=== PATIENT | female | born 1935 | race Caucasian/White ===

== ENCOUNTER 2021-02-27 17:20 | Emergency (ER) | payer OTHER, SELFPAY ==
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
[2021-02-27 17:29] VITALS: BP 180/110; BP 192/84; PULSE 107; RESP 18; TEMP 37; O2SAT 97; BMI 32.5
[2021-02-27 20:03] VITALS: BP 180/80; PULSE 86; RESP 20; TEMP 37.1; O2SAT 96
== END 2021-02-27 20:26 | disposition home or self-care (01) ==
PROVIDERS: Emergency Provider Emergency Medicine
DX: S00.93XA Contusion of unspecified part of head, initial encounter (principal); V43.52XA Car driver injured in collision with other type car in traffic accident, initial encounter; I10 Essential (primary) hypertension; Y93.89 Activity, other specified; Y92.414 Local residential or business street as the place of occurrence of the external cause; Y99.9 Unspecified external cause status
CPT/HCPCS: 70450; 72125; 99284

== ENCOUNTER 2022-08-06 13:11 | Inpatient (IN) | payer MEDICARE, BC, SELFPAY ==
--- NOTE | ~2022-08-06 | CT_ITS ---
EXAMINATION: CT HEAD WITHOUT CONTRAST CLINICAL INFORMATION: Change in mental status. COMPARISON: Head CT February 27, 2021. TECHNIQUE: Contiguous axial imaging was performed from the skull base to vertex without intravenous administration of contrast. This CT examination was performed using dose optimization techniques as appropriate, variously including the following: *Automated exposure control *Adjustment of mA and/or kV according to patient size (this includes techniques or standardized protocols for targeted exams where dose is matched to indication/reason for exam; i.e. extremities or head) *Use of iterative reconstruction technique DLP: 936 mGy-cm. FINDINGS: There is no intracranial hemorrhage, extra-axial collection, mass effect, or acute large territorial infarction. There is chronic-appearing infarct within the left anterior inferior frontal lobe and in the left basal ganglia. Mild hypoattenuation is seen within the cerebral white matter, typical of chronic microangiopathy. The ventricles are normal in size without hydrocephalus. Atheromatous calcifications are seen at the carotid siphons and intradural vertebral arteries. The left maxillary sinus is hypoplastic. The extracranial structures are within normal limits. CT/CT head/brain wo IV con IMPRESSION: No acute intracranial abnormality. 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
--- NOTE | ~2022-08-06 | CT_ITS ---
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 TECHNIQUE: Department standard protocol. This CT examination was performed using dose optimization techniques as appropriate, variously including the following: *Automated exposure control *Adjustment of mA and/or kV according to patient size (this includes techniques or standardized protocols for targeted exams where dose is matched to indication/reason for exam; i.e. extremities or head) *Use of iterative reconstruction technique DLP: 720 mGy-cm FINDINGS: CEREBRAL HEMISPHERES: There is no evidence of intra-axial or extra-axial mass, hemorrhage or acute infarct. BRAIN PARENCHYMA: Deep white matter and paraventricular hypoattenuation, nonspecific; most likely changes secondary to chronic ischemia due to microvascular angiopathy. SUBDURAL SPACE: No bleed. BASAL GANGLIA AND PINEAL GLAND: Unremarkable VENTRICLES: Symmetric and normal in size. CEREBELLUM AND BRAINSTEM: No space-occupying mass, hemorrhage or acute infarct. CEREBELLOPONTINE ANGLES: No lesion found. ORBITS: No intraorbital mass. VESSELS: Unremarkable SKULL BASE: Unremarkable INCLUDED SINUSES AT SKULL BASE: Clear SKULL AND SKIN: No fracture or bone lesion found. CT/CT head for stroke IMPRESSION: Redemonstration of diffuse Deep white matter and periventricular hypoattenuation, nonspecific; most likely sequela of chronic ischemia/microvascular angiopathy ischemia. No intracranial bleed. No clear evidence of vascular territorial infarct. Please note that Normal CT scan does not rule out the possibility of hyperacute infarct in the first 12 hours. If patient symptoms persist may consider treatment and correlation with MRI, which is more sensitive for early acute infarct. This critical result was discussed with Dr. Quinn by telephone at 08/15/2022 7:45 AM and it was ascertained that the content and urgency of the report was understood at the time of direct communication.
[2022-08-06 13:45] VITALS: BP 204/84; PULSE 97; RESP 18; TEMP 36.4; O2SAT 99
[2022-08-06 18:00] VITALS: BP 137/88
--- NOTE | 2022-08-06 19:20 | PC.ADMIT ---
Pt. arrived on unit via stretcher accompanied by 2 alternative dispute resolution mediator. Pt. admitted from [facility] ED. Pt. lives alone in mobile home and had been experiencing visual hallucinations, seeing men and boys in her house, resulting in fear and sleeplessness. Pt. aware that hallucinations are not real, but wants testing to find out why she is experiencing this. A & O X 4. Denies depression. Endorses anxiety 12/30 related to this first encounter with psychiatric care in her life. Pt. does not have PCP, I have no problems with my health. All I take is Prilosec. If I need anything else I go to urgent care. Pt. signed CV. Oriented to unit. Pt. rights, visitation policy and no smoking policy explained.
[2022-08-07 06:00] VITALS: BP 188/88; PULSE 98; RESP 19; TEMP 36.6; O2SAT 100
[2022-08-07 08:36] LABS: Alanine Aminotransferase 13 U/L (0-31); Albumin Level 3.8 g/dL (3.5-5.0); Alkaline Phosphatase 72 U/L (39-117); Anion Gap 14 (12-20); Aspartate Amino Transferase 18 U/L (5-31); Blood Urea Nitrogen 18 mg/dL (9-16); Carbon Dioxide 27 mmol/L (22-29); Chloride 106 mmol/L (96-108); Cholesterol 234 mg/dL; Estimated Glomerular Filt Rate > 60; Glucose Fasting 106 mg/dL (60-99); HDL Cholesterol 40 mg/dL; LDL Cholesterol Calculated 180 mg/dl; Potassium 3.5 mmol/L (3.3-5.1); Sodium 143 mmol/L (135-145); Total Protein 6.1 g/dL (6.5-8.0); Triglycerides 74 mg/dL
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
--- NOTE | 2022-08-07 13:18 | HO.PSYADMNOT ---
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 According to the crisis assessment, the patient had a similar episode for the last 2 years with visual hallucinations stating there are people in her room. Adult protective Services has been involved and in this location, the patient complained of visual hallucinations she was very paranoid and scared. All his previous visual hallucinations were in clear correlation to UTI. She was admitted to the emergency room of [facility] had a very extensive medical workout with no evidence of UTI. Since the patient had a sporadic visual hallucinations and disorganized thought process she was deemed inpatient level of care and transferring to this facility for psychiatric stabilization. On interview, the patient was very pleasant and cooperative she reported that sometimes she sees people and sometimes she has paranoia and gets scared easily. She had a hard time with word-finding and providing good history, her short-term memory was very impaired. She denies active suicidal ideation, homicidal thoughts or dysphoria. Past Psychiatric History: She had several visits to the emergency room for visual hallucinations in the context of UTI, 2 years ago she was nearly admitted at psychiatric geriatric unit. Medical Evaluation Reviewed: Yes [facility] Medical History Acid reflux HTN (hypertension) Narrative: History of frequent UTIs Family History: Denies Social History: The patient is the 4th of 6 children, her milestones were achieved at expected age she was raised with her purse and she had a very good childhood. She attended school until 11th grade, she had at the age of 30 and she has 2 children who were close to her. At this moment, she lives in a mobile home by herself with some supports that is very limited. Adult protective services is involved in her care Substance History: Denies Trauma History: Denies Diagnostics Vital Signs (24Hr): Vital Signs - 24 hr 08/06/22 13:45 08/06/22 18:00 08/07/22 06:00 Temperature 97.5 F 97.9 F Pulse Rate 97 98 Respiratory Rate 18 19 Blood Pressure 204/84 H 137/88 188/88 H Pulse Oximetry 99 100 Oxygen Delivery Method Room Air Room Air Labs 08/07/22 08:09 Labs: Laboratory Results - last 48 hr 08/07/22 08:09 Sodium 143 Potassium 3.5 Chloride 106 Carbon Dioxide 27 Anion Gap 14 BUN 18 H Creatinine 0.78 Estim Creat Clear Calc TNP Estimated GFR > 60 Fasting Glucose 106 H Calcium 9.0 Total Bilirubin 1.0 AST 18 ALT 13 Alkaline Phosphatase 72 Total Protein 6.1 L Albumin 3.8 Triglycerides 74 Cholesterol 234 LDL Cholesterol, Calc 180 HDL Cholesterol 40 Meds/Allergies Meds Home Medications Medication Instructions Recorded Confirmed Type omeprazole magnesium 20 mg 20 mg PO DAILY 08/07/22 08/07/22 History tablet,delayed release (Prilosec OTC) Allergies Allergies Allergy/AdvReac Type Severity Reaction Status Date / Time No Known Allergies Allergy Verified 02/27/21 17:35 Mental Status Exam Mental Status Exam Patient Appearance: Appropriate Patient Orientation: Person and Situation Level of Consciousness: Awake and Appropriate Patient Behavior: Cooperative Mood Description: Withdrawn and Constricted Affect Description: Calm Patient Cognition Impaired: Yes Ability to Follow Directions: Fair Speech Pattern: Clear Memory Description: Immediate Impaired Hallucinations: Visual Delusions: Paranoid Ideation Thought Process: Distracted Thought Content: positive for [place] and positive for Circumstantial Judgement: Poor Assessment & Plan Assessment & Plan (1) Dementia: Status: Acute Code(s): F03.90 - Unspecified dementia, unspecified severity, without behavioral disturbance, psychotic disturbance, mood disturbance, and anxiety (2) Delirium: Status: Acute Code(s): R41.0 - Disorientation, unspecified Plan The patient is an elderly female with a prior history of visual hallucinations and paranoia in the context of UTIs for the last 2 years. The patient also carries a diagnosis of dementia, she is quite impaired with limited support in the community. She was admitted due to inability to take care of herself and persistence of psychotic symptoms. Plan 1. Gather collateral information. 2. Regular blood work and medical workout. 3. Observation every 15 minutes. 4. Occupational therapy referral for cognitive testing. 5. Start a very low dose of Haldol 0.5 p.o. q.h.s. to target psychosis. 6. Reassessment results Patient educated on: diagnosis Guardian/Caregiver educated on: therapeutic strategies Reason for continued inpatient stay Substantial Risk for: inability to function, rapid decompensation and med/psych decompensation Statement Statement: I have reviewed the history and physical and performed a pertinent examination on my patient. No changes have occurred unless specified. If the History and Physical was not performed prior to admission, the Hospitalist's service will be consulted for completing the admission physical. Time Spent With Patient Time: Total time managing care of this patient today __45__ minutes.
--- NOTE | 2022-08-07 13:47 | ECG_ITS ---
Test Reason : afib? Blood Pressure : / mmHG Vent. Rate : 076 BPM Atrial Rate : 076 BPM P-R Int : 140 ms QRS Dur : 084 ms QT Int : 388 ms P-R-T Axes : 059 045 -01 degrees QTc Int : 436 ms Sinus rhythm with Premature supraventricular complexes ST & T wave abnormality, consider lateral ischemia Abnormal ECG No previous ECGs available Referred By: Nevaeh Bailey Electronically Signed By:Ramiro Higgins
[2022-08-07] MEDS: amLODIPine Besylate 5 MG TABLET PO (13:53)
[2022-08-07 14:17] LABS: Magnesium 1.8 mg/dL (1.6-2.6)
[2022-08-07 14:32] LABS: TSH reflex Free T4 2.54 uIU/mL (0.32-4.0)
[2022-08-07 16:07] VITALS: BP 158/90
[2022-08-07 18:00] VITALS: BP 150/65; PULSE 116; RESP 18; TEMP 36; O2SAT 99
[2022-08-07] MEDS: lisinopriL 10 MG TABLET PO (21:04)
[2022-08-08 10:00] VITALS: BP 87/58; PULSE 91; RESP 16; TEMP 37; O2SAT 96
[2022-08-08] MEDS: amLODIPine Besylate 5 MG TABLET PO (10:39)
[2022-08-08] MEDS: Omeprazole 20 MG CAPSULE.DR PO (10:40)
--- NOTE | 2022-08-08 13:29 | P.PNPSI_ITS ---
Subjective Subjective Date of Service: 08/08/22 Reason For Visit: 298.9/F29,F48.9 Subjective Notes: Conditional Voluntary Interim History: The nursing staff reported the patient had poor sleep last night, she could not sleep because she was not readable. Her EKG came back yesterday within normal limits. The occupational therapist reported that she did the Ronald test yesterday and she scored 5.0. On interview the patient denies active auditory hallucinations at night and she agreed to treated preventing fully with Zyprexa 2.5 p.o. q.h.s.. No new symptoms Mental Status Exam Mental Status Exam Patient Appearance: Appropriate Patient Orientation: Person and Situation Level of Consciousness: Awake and Appropriate Patient Behavior: Guarded and Passive Mood Description: Withdrawn and Constricted Affect Description: Constricted Patient Cognition Impaired: Yes Ability to Follow Directions: Fair Speech Pattern: Clear, Poor Articulation and Long Pauses Hallucinations: None Delusions: Not Present Thought Process: Distracted and Slowed Thinking Thought Content: positive for [place] and positive for Thought Blocking Judgement: Fair Diagnostics Vital Signs (24Hr): Vital Signs - 24 hr 08/07/22 16:07 08/07/22 18:00 Temperature 96.8 F Pulse Rate 116 H Respiratory Rate 18 Blood Pressure 158/90 H 150/65 H Pulse Oximetry 99 Oxygen Delivery Method Room Air Labs 08/07/22 08:09 Labs: Laboratory Results - last 48 hr 08/07/22 08:09 Sodium 143 Potassium 3.5 Chloride 106 Carbon Dioxide 27 Anion Gap 14 BUN 18 H Creatinine 0.78 Estim Creat Clear Calc TNP Estimated GFR > 60 Fasting Glucose 106 H Calcium 9.0 Magnesium 1.8 Total Bilirubin 1.0 AST 18 ALT 13 Alkaline Phosphatase 72 Total Protein 6.1 L Albumin 3.8 Triglycerides 74 Cholesterol 234 LDL Cholesterol, Calc 180 HDL Cholesterol 40 TSH 2.54 Imaging Radiology Impressions: ITS Impressions Head CT 08/08/22 11:26 IMPRESSION: No acute intracranial abnormality. 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 Medications Medications Current Medications Acetaminophen (Acetaminophen 325 Mg Tablet) 650 mg PO Q6H PRN PRN Reason: Headache/Pain Mild Scale (1-3) Al Hydroxide/Mg Hydroxide (Magnesium Hydrox/Alum Hydrox 30 Ml Oral.Susp) 30 ml PO Q6H PRN PRN Reason: Heartburn/Nausea Amlodipine Besylate (Amlodipine Besylate 5 Mg Tablet) 5 mg PO DAILY HAMLET; Protocol Last Admin: 08/08/22 10:39 Dose: 5 mg Hydroxyzine HCl (Hydroxyzine Hcl 25 Mg Tablet) 25 mg PO Q6H PRN PRN Reason: Anxiety Lisinopril (Lisinopril 10 Mg Tablet) 10 mg PO BEDTIME HAMLET; Protocol Last Admin: 08/07/22 21:04 Dose: 10 mg Magnesium Hydroxide (Milk Of Magnesia 30 Ml Oral.Susp) 30 ml PO DAILY PRN PRN Reason: Constipation Olanzapine (Olanzapine 2.5 Mg Tablet) 2.5 mg PO BEDTIME HAMLET Omeprazole (Omeprazole 20 Mg Capsule.Dr) 20 mg PO DAILY@0630 HAMLET Last Admin: 08/08/22 10:40 Dose: 20 mg Trazodone HCl (Trazodone Hcl 50 Mg Tablet) 50 mg PO BEDTIME MRX1 PRN PRN Reason: Insomnia Allergies Allergies Allergy/AdvReac Type Severity Reaction Status Date / Time No Known Allergies Allergy Verified 02/27/21 17:35 Assessment & Plan Assessment & Plan (1) Dementia: Status: Acute Code(s): F03.90 - Unspecified dementia, unspecified severity, without behavioral disturbance, psychotic disturbance, mood disturbance, and anxiety (2) Delirium: Status: Acute Code(s): R41.0 - Disorientation, unspecified Plan 87 year old female with history of GERD, former smoker admitted to psychiatry from [facility] for visual hallucinations with consult placed to medicine for medical H&P. #Visual hallucinations -plan per psychiatry #Hypertension -Multiple recorded episodes hypertension with BP up to 204/89 -Initiate amlodipine 5mg daily -Follow and document BP closely #?Atrial fibrillation -denies known history -Stat EKG ordered -Rate controlled. -Lytes normal. Add magnesium and tsh/free t4 #GERD -continue ppi Will continue following for BP management and EKG reading. Needs to be set up with pcp outpt. [facility]. Psychiatry 1. Gather collateral information. 2. Start Zyprexa 2.5 p.o. q.h.s. to target a loose in a shins and night. 3. Continue medical workout. Reason for contiued inpatient stay Substantial Risk for: inability to function, rapid decompensation and med/psych decompensation Time Spent With Patient Time: Total time managing care of this patient today __20__ minutes.
[2022-08-08 19:25] VITALS: BP 144/67; PULSE 90; RESP 18; TEMP 37.1; O2SAT 97
[2022-08-08] MEDS: lisinopriL 10 MG TABLET PO (21:06)
[2022-08-08] MEDS: OLANZapine 2.5 MG TABLET PO (21:06)
[2022-08-09 06:00] VITALS: BP 160/72; PULSE 95; RESP 16; TEMP 36.7; O2SAT 98
[2022-08-09] MEDS: Omeprazole 20 MG CAPSULE.DR PO (06:21)
[2022-08-09] MEDS: amLODIPine Besylate 5 MG TABLET PO (10:41)
--- NOTE | 2022-08-09 14:37 | HO.PSYCHPN ---
Subjective Subjective Date of Service: 08/09/22 Reason For Visit: 298.9/F29,F48.9 Subjective Notes: Conditional Voluntary Interim History: The nursing staff reported the patient slept well, she has been compliant with treatment. The CT scan came back with chronic infarcts in the frontal lobe and left basilar ganglia. She had an EKG with some SVTs but no need of treatment as per hospitalist. The social service director reported that she lives in a trailer home and Adult protective Services involved because the patient had been neglecting it. We will have a family meeting today. During the family meeting her son reported that she lives alone that her both children are far away from her and she is poorly compliant. The occupational therapist reported that she has court on the Ronald test 5.0 new [place] over . On interview the patient denies new symptoms we will start Aricept and continue Zyprexa. Mental Status Exam Mental Status Exam Patient Appearance: Appropriate Patient Orientation: Person and Situation Level of Consciousness: Awake and Appropriate Patient Behavior: Guarded and Passive Mood Description: Withdrawn and Constricted Affect Description: Calm Patient Cognition Impaired: Yes Ability to Follow Directions: Good Speech Pattern: Clear Hallucinations: None Delusions: Not Present Thought Process: Distracted and Slowed Thinking Thought Content: positive for [place] Judgement: Fair Diagnostics Vital Signs (24Hr): Vital Signs - 24 hr 08/08/22 19:25 Temperature 98.7 F Pulse Rate 90 Respiratory Rate 18 Blood Pressure 144/67 H Pulse Oximetry 97 Oxygen Delivery Method Room Air Labs 08/07/22 08:09 Imaging Radiology Impressions: ITS Impressions Head CT 08/08/22 11:26 IMPRESSION: No acute intracranial abnormality. 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 Medications Medications Current Medications Acetaminophen (Acetaminophen 325 Mg Tablet) 650 mg PO Q6H PRN PRN Reason: Headache/Pain Mild Scale (1-3) Al Hydroxide/Mg Hydroxide (Magnesium Hydrox/Alum Hydrox 30 Ml Oral.Susp) 30 ml PO Q6H PRN PRN Reason: Heartburn/Nausea Amlodipine Besylate (Amlodipine Besylate 5 Mg Tablet) 5 mg PO DAILY HAMLET; Protocol Last Admin: 08/09/22 10:41 Dose: 5 mg Hydroxyzine HCl (Hydroxyzine Hcl 25 Mg Tablet) 25 mg PO Q6H PRN PRN Reason: Anxiety Lisinopril (Lisinopril 10 Mg Tablet) 10 mg PO BEDTIME HAMLET; Protocol Last Admin: 08/08/22 21:06 Dose: 10 mg Magnesium Hydroxide (Milk Of Magnesia 30 Ml Oral.Susp) 30 ml PO DAILY PRN PRN Reason: Constipation Olanzapine (Olanzapine 2.5 Mg Tablet) 2.5 mg PO BEDTIME HAMLET Last Admin: 08/08/22 21:06 Dose: 2.5 mg Omeprazole (Omeprazole 20 Mg Capsule.Dr) 20 mg PO DAILY@0630 HAMLET Last Admin: 08/09/22 06:21 Dose: 20 mg Trazodone HCl (Trazodone Hcl 50 Mg Tablet) 50 mg PO BEDTIME MRX1 PRN PRN Reason: Insomnia Allergies Allergies Allergy/AdvReac Type Severity Reaction Status Date / Time No Known Allergies Allergy Verified 02/27/21 17:35 Assessment & Plan Assessment & Plan (1) Dementia: Status: Acute Code(s): F03.90 - Unspecified dementia, unspecified severity, without behavioral disturbance, psychotic disturbance, mood disturbance, and anxiety (2) Delirium: Status: Acute Code(s): R41.0 - Disorientation, unspecified Plan 87 year old female with history of GERD, former smoker admitted to psychiatry from [facility] for visual hallucinations with consult placed to medicine for medical H&P. #Visual hallucinations -plan per psychiatry #Hypertension -Multiple recorded episodes hypertension with BP up to 204/89 -Initiate amlodipine 5mg daily -Follow and document BP closely #?Atrial fibrillation -denies known history -Stat EKG ordered -Rate controlled. -Lytes normal. Add magnesium and tsh/free t4 #GERD -continue ppi Will continue following for BP management and EKG reading. Needs to be set up with pcp outpt. [facility]. Psychiatry 1. Gather collateral information. 2. Start Zyprexa 2.5 p.o. q.h.s. to target a loose in a shins and night. 3. Continue medical workout. 4. Start Aricept 5 mg p.o. q.h.s. Reason for contiued inpatient stay Substantial Risk for: inability to function, rapid decompensation and med/psych decompensation Time Spent With Patient Time: Total time managing care of this patient today __20__ minutes.
[2022-08-09 19:10] VITALS: BP 150/67; PULSE 83; RESP 16; TEMP 36.9; O2SAT 97
[2022-08-09] MEDS: lisinopriL 10 MG TABLET PO (19:43)
[2022-08-09] MEDS: Donepezil HCl 5 MG TABLET PO (19:44)
[2022-08-09] MEDS: OLANZapine 2.5 MG TABLET PO (19:44)
[2022-08-10] MEDS: Omeprazole 20 MG CAPSULE.DR PO (06:23)
[2022-08-10 07:30] VITALS: BP 158/66; PULSE 107; RESP 17; TEMP 36.7; O2SAT 98
[2022-08-10] MEDS: amLODIPine Besylate 5 MG TABLET PO (14:54)
--- NOTE | 2022-08-10 15:07 | P.PNPSI_ITS ---
Subjective Subjective Date of Service: 08/11/22 Reason For Visit: 298.9/F29,F48.9 Subjective Notes: Conditional Voluntary Interim History: Pt in bed. She reports diarrhea, denies abdominal pain. She had imodium with good effect. No SI/HI. She is taking medications as prescribed. No behavioral concerns. Medication Compliance: Yes Mental Status Exam Mental Status Exam Narrative: Appearance:wearing hospital gown, in NAD Behavior: cooperative, friendly Speech: clear, normal rate/rhythm/volume, spontaneous Psychomotor: no agitation or retardation noted TP: linear TC: feeling tired due to diarrhea, no other symptoms. Mood: tired Affect: congruent SI: none HI: none VH/AH: none Insight/judgment: fair x 2. Diagnostics Vital Signs (24Hr): Vital Signs - 24 hr 08/10/22 19:55 08/11/22 06:00 Temperature 97.1 F 97.3 F Pulse Rate 111 H 100 Respiratory Rate 18 Blood Pressure 150/79 H 176/74 H Pulse Oximetry 97 95 Oxygen Delivery Method Room Air Room Air Labs 08/07/22 08:09 Imaging Radiology Impressions: ITS Impressions Head CT 08/08/22 11:26 IMPRESSION: No acute intracranial abnormality. 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 Medications Medications Current Medications Acetaminophen (Acetaminophen 325 Mg Tablet) 650 mg PO Q6H PRN PRN Reason: Headache/Pain Mild Scale (1-3) Al Hydroxide/Mg Hydroxide (Magnesium Hydrox/Alum Hydrox 30 Ml Oral.Susp) 30 ml PO Q6H PRN PRN Reason: Heartburn/Nausea Amlodipine Besylate (Amlodipine Besylate 5 Mg Tablet) 5 mg PO DAILY HAMLET; Protocol Last Admin: 08/11/22 08:40 Dose: 5 mg Donepezil HCl (Donepezil Hcl 5 Mg Tablet) 5 mg PO BEDTIME HAMLET Last Admin: 08/10/22 20:08 Dose: 5 mg Hydroxyzine HCl (Hydroxyzine Hcl 25 Mg Tablet) 25 mg PO Q6H PRN PRN Reason: Anxiety Lisinopril (Lisinopril 10 Mg Tablet) 10 mg PO BEDTIME HAMLET; Protocol Last Admin: 08/10/22 20:08 Dose: 10 mg Magnesium Hydroxide (Milk Of Magnesia 30 Ml Oral.Susp) 30 ml PO DAILY PRN PRN Reason: Constipation Olanzapine (Olanzapine 2.5 Mg Tablet) 2.5 mg PO BEDTIME COUNTS INCLUDE 234 BEDS AT THE [facility] Last Admin: 08/10/22 20:08 Dose: 2.5 mg Omeprazole (Omeprazole 20 Mg Capsule.Dr) 20 mg PO DAILY@0630 COUNTS INCLUDE 234 BEDS AT THE [facility] Last Admin: 08/11/22 06:16 Dose: 20 mg Trazodone HCl (Trazodone Hcl 50 Mg Tablet) 50 mg PO BEDTIME MRX1 PRN PRN Reason: Insomnia Allergies Allergies Allergy/AdvReac Type Severity Reaction Status Date / Time No Known Allergies Allergy Verified 02/27/21 17:35 Assessment & Plan Assessment & Plan (1) Dementia: Status: Acute Code(s): F03.90 - Unspecified dementia, unspecified severity, without behavioral disturbance, psychotic disturbance, mood disturbance, and anxiety (2) Delirium: Status: Acute Code(s): R41.0 - Disorientation, unspecified Plan 87 year old female with history of GERD, former smoker admitted to psychiatry from [facility] for visual hallucinations with consult placed to medicine for medical H&P. #Visual hallucinations -plan per psychiatry #Hypertension -Multiple recorded episodes hypertension with BP up to 204/89 -Initiate amlodipine 5mg daily -Follow and document BP closely #?Atrial fibrillation -denies known history -Stat EKG ordered -Rate controlled. -Lytes normal. Add magnesium and tsh/free t4 #GERD -continue ppi Will continue following for BP management and EKG reading. Needs to be set up with pcp outpt. [facility]. Psychiatry 1. Gather collateral information. 2. Start Zyprexa 2.5 p.o. q.h.s. to target a loose in a shins and night. 3. Continue medical workout. 4. Start Aricept 5 mg p.o. q.h.s. 08/10 continue tx. Reason for contiued inpatient stay Substantial Risk for: inability to function Time Spent With Patient Time: Total time managing care of this patient today ____ minutes.
[2022-08-10 19:55] VITALS: BP 150/79; PULSE 111; TEMP 36.2; O2SAT 97
[2022-08-10] MEDS: OLANZapine 2.5 MG TABLET PO (20:08)
[2022-08-10] MEDS: lisinopriL 10 MG TABLET PO (20:08)
[2022-08-10] MEDS: Donepezil HCl 5 MG TABLET PO (20:08)
[2022-08-11 06:00] VITALS: BP 176/74; PULSE 100; RESP 18; TEMP 36.3; O2SAT 95
[2022-08-11] MEDS: Omeprazole 20 MG CAPSULE.DR PO (06:16)
[2022-08-11] MEDS: amLODIPine Besylate 5 MG TABLET PO (08:40)
--- NOTE | 2022-08-11 15:10 | P.PNPSI_ITS ---
Subjective Subjective Date of Service: 08/11/22 Reason For Visit: 298.9/F29,F48.9 Subjective Notes: Conditional Voluntary Interim History: Pt in bed today again. She reports diarrhea is much better. No SI/HI. She decline some medications this morning. No behavioral concerns. Medication Compliance: Yes Review of Systems Review of Systems General: No fevers, malaise, unintentional weight loss HEENT: No blurred vision, diplopia. No sore throat, nasal congestion, rhinorrhea, sinus pain, ear pain Cardiovascular: No chest pain, palpitations, or leg edema Respiratory: No shortness of breath, wheezing, cough GI: No abdominal pain, nausea, vomiting, diarrhea, constipation, melena, hematochezia : No dysuria, hematuria, increased urinary frequency, decreased urinary output MSK: No myalgia, back pain Neuro: No headaches, weakness, paresthesias Skin: No rashes or lesions Yes all other systems are reviewed and are negative Mental Status Exam Mental Status Exam Narrative: Appearance:wearing hospital gown, in NAD Behavior: cooperative, friendly Speech: clear, normal rate/rhythm/volume, spontaneous Psychomotor: no agitation or retardation noted TP: linear TC: feeling tired due to diarrhea, no other symptoms. Mood: tired Affect: congruent SI: none HI: none VH/AH: none Insight/judgment: fair x 2. Diagnostics Vital Signs (24Hr): Vital Signs - 24 hr 08/10/22 19:55 08/11/22 06:00 Temperature 97.1 F 97.3 F Pulse Rate 111 H 100 Respiratory Rate 18 Blood Pressure 150/79 H 176/74 H Pulse Oximetry 97 95 Oxygen Delivery Method Room Air Room Air Labs 08/07/22 08:09 Imaging Radiology Impressions: ITS Impressions Head CT 08/08/22 11:26 IMPRESSION: No acute intracranial abnormality. 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 Medications Medications Current Medications Acetaminophen (Acetaminophen 325 Mg Tablet) 650 mg PO Q6H PRN PRN Reason: Headache/Pain Mild Scale (1-3) Al Hydroxide/Mg Hydroxide (Magnesium Hydrox/Alum Hydrox 30 Ml Oral.Susp) 30 ml PO Q6H PRN PRN Reason: Heartburn/Nausea Amlodipine Besylate (Amlodipine Besylate 5 Mg Tablet) 5 mg PO DAILY HAMLET; Protocol Last Admin: 08/11/22 08:40 Dose: 5 mg Donepezil HCl (Donepezil Hcl 5 Mg Tablet) 5 mg PO BEDTIME [facility] Last Admin: 08/10/22 20:08 Dose: 5 mg Hydroxyzine HCl (Hydroxyzine Hcl 25 Mg Tablet) 25 mg PO Q6H PRN PRN Reason: Anxiety Lisinopril (Lisinopril 10 Mg Tablet) 10 mg PO BEDTIME HAMLET; Protocol Last Admin: 08/10/22 20:08 Dose: 10 mg Magnesium Hydroxide (Milk Of Magnesia 30 Ml Oral.Susp) 30 ml PO DAILY PRN PRN Reason: Constipation Olanzapine (Olanzapine 2.5 Mg Tablet) 2.5 mg PO BEDTIME [facility] Last Admin: 08/10/22 20:08 Dose: 2.5 mg Omeprazole (Omeprazole 20 Mg Capsule.Dr) 20 mg PO DAILY@0630 [facility] Last Admin: 08/11/22 06:16 Dose: 20 mg Trazodone HCl (Trazodone Hcl 50 Mg Tablet) 50 mg PO BEDTIME MRX1 PRN PRN Reason: Insomnia Allergies Allergies Allergy/AdvReac Type Severity Reaction Status Date / Time No Known Allergies Allergy Verified 02/27/21 17:35 Assessment & Plan Assessment & Plan (1) Dementia: Status: Acute Code(s): F03.90 - Unspecified dementia, unspecified severity, without behavioral disturbance, psychotic disturbance, mood disturbance, and anxiety (2) Delirium: Status: Acute Code(s): R41.0 - Disorientation, unspecified Plan 87 year old female with history of GERD, former smoker admitted to psychiatry from [facility] for visual hallucinations with consult placed to medicine for medical H&P. #Visual hallucinations -plan per psychiatry #Hypertension -Multiple recorded episodes hypertension with BP up to 204/89 -Initiate amlodipine 5mg daily -Follow and document BP closely #?Atrial fibrillation -denies known history -Stat EKG ordered -Rate controlled. -Lytes normal. Add magnesium and tsh/free t4 #GERD -continue ppi Will continue following for BP management and EKG reading. Needs to be set up with pcp outpt. [facility]. Psychiatry 1. Gather collateral information. 2. Start Zyprexa 2.5 p.o. q.h.s. to target a loose in a shins and night. 3. Continue medical workout. 4. Start Aricept 5 mg p.o. q.h.s. 08/10 continue tx. 08/11 continue tx. Reason for contiued inpatient stay Substantial Risk for: inability to function Time Spent With Patient Time: Total time managing care of this patient today ____ minutes.
--- NOTE | 2022-08-11 18:16 | PC.NURSE ---
patient is very confused, refuses to eat and states why are you keeping me in this senior living . Attempts to reorient patient unsuccessful, she remains isolated in her room thinking she is in senior living.
[2022-08-11 20:35] VITALS: BP 113/66; PULSE 107
[2022-08-11] MEDS: lisinopriL 10 MG TABLET PO (20:36)
[2022-08-11] MEDS: Donepezil HCl 5 MG TABLET PO (20:36)
[2022-08-11] MEDS: OLANZapine 2.5 MG TABLET PO (20:36)
[2022-08-12] MEDS: Omeprazole 20 MG CAPSULE.DR PO (06:22)
[2022-08-12 08:00] VITALS: BP 148/66; PULSE 96; RESP 16; TEMP 36.9; O2SAT 100
[2022-08-12] MEDS: amLODIPine Besylate 5 MG TABLET PO ×2 (08:11→20:55)
--- NOTE | 2022-08-12 10:03 | P.PNPSI_ITS ---
Subjective Subjective Date of Service: 08/12/22 Reason For Visit: 298.9/F29,F48.9 Subjective Notes: Conditional Voluntary Interim History: Pt mostly bed today again. She presents with constricted affect. She reports diarrhea not better today, and states I don't want to talk about it. Per nursing, pt made statement related to thinking that she is in snf. Pt guarded when asked if she felt safe here. No SI/HI. She decline some medications this morning. No behavioral concerns. Review of Systems Review of Systems General: No fevers, malaise, unintentional weight loss HEENT: No blurred vision, diplopia. No sore throat, nasal congestion, rhinorrhea, sinus pain, ear pain Cardiovascular: No chest pain, palpitations, or leg edema Respiratory: No shortness of breath, wheezing, cough GI: No abdominal pain, nausea, vomiting, diarrhea, constipation, melena, hematochezia : No dysuria, hematuria, increased urinary frequency, decreased urinary output MSK: No myalgia, back pain Neuro: No headaches, weakness, paresthesias Skin: No rashes or lesions Yes all other systems are reviewed and are negative Mental Status Exam Mental Status Exam Narrative: Appearance:wearing hospital gown, in NAD Behavior: cooperative, friendly Speech: clear, normal rate/rhythm/volume, spontaneous Psychomotor: no agitation or retardation noted TP: linear TC: feeling tired due to diarrhea, no other symptoms. Mood: tired Affect: congruent SI: none HI: none VH/AH: none Insight/judgment: fair x 2. Diagnostics Vital Signs (24Hr): Vital Signs - 24 hr 08/11/22 20:35 Pulse Rate 107 H Blood Pressure 113/66 Labs 08/07/22 08:09 Imaging Radiology Impressions: ITS Impressions Head CT 08/08/22 11:26 IMPRESSION: No acute intracranial abnormality. 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 Medications Medications Current Medications Acetaminophen (Acetaminophen 325 Mg Tablet) 650 mg PO Q6H PRN PRN Reason: Headache/Pain Mild Scale (1-3) Al Hydroxide/Mg Hydroxide (Magnesium Hydrox/Alum Hydrox 30 Ml Oral.Susp) 30 ml PO Q6H PRN PRN Reason: Heartburn/Nausea Amlodipine Besylate (Amlodipine Besylate 5 Mg Tablet) 5 mg PO DAILY HAMLET; Protocol Last Admin: 08/12/22 08:11 Dose: 5 mg Donepezil HCl (Donepezil Hcl 5 Mg Tablet) 5 mg PO BEDTIME HAMLET Last Admin: 08/11/22 20:36 Dose: 5 mg Hydroxyzine HCl (Hydroxyzine Hcl 25 Mg Tablet) 25 mg PO Q6H PRN PRN Reason: Anxiety Lisinopril (Lisinopril 10 Mg Tablet) 10 mg PO BEDTIME HAMLET; Protocol Last Admin: 08/11/22 20:36 Dose: 10 mg Magnesium Hydroxide (Milk Of Magnesia 30 Ml Oral.Susp) 30 ml PO DAILY PRN PRN Reason: Constipation Olanzapine (Olanzapine 2.5 Mg Tablet) 2.5 mg PO BEDTIME HAMLET Last Admin: 08/11/22 20:36 Dose: 2.5 mg Omeprazole (Omeprazole 20 Mg Capsule.Dr) 20 mg PO DAILY@0630 H[facility]LET Last Admin: 08/12/22 06:22 Dose: 20 mg Trazodone HCl (Trazodone Hcl 50 Mg Tablet) 50 mg PO BEDTIME MRX1 PRN PRN Reason: Insomnia Allergies Allergies Allergy/AdvReac Type Severity Reaction Status Date / Time No Known Allergies Allergy Verified 02/27/21 17:35 Assessment & Plan Assessment & Plan (1) Dementia: Status: Acute Code(s): F03.90 - Unspecified dementia, unspecified severity, without behavioral disturbance, psychotic disturbance, mood disturbance, and anxiety (2) Delirium: Status: Acute Code(s): R41.0 - Disorientation, unspecified Plan 87 year old female with history of GERD, former smoker admitted to psychiatry from [facility] for visual hallucinations with consult placed to medicine for medical H&P. #Visual hallucinations -plan per psychiatry #Hypertension -Multiple recorded episodes hypertension with BP up to 204/89 -Initiate amlodipine 5mg daily -Follow and document BP closely #?Atrial fibrillation -denies known history -Stat EKG ordered -Rate controlled. -Lytes normal. Add magnesium and tsh/free t4 #GERD -continue ppi Will continue following for BP management and EKG reading. Needs to be set up with pcp outpt. [facility] Psychiatry 1. Gather collateral information. 2. Start Zyprexa 2.5 p.o. q.h.s. to target a loose in a shins and night. 3. Continue medical workout. 4. Start Aricept 5 mg p.o. q.h.s. 08/10 continue tx. 08/11 continue tx. 08/12 continue tx. Reason for contiued inpatient stay Substantial Risk for: inability to function Time Spent With Patient Time: Total time managing care of this patient today ____ minutes.
[2022-08-12 11:27] LABS: COVID-19 Test Negative (Negative); IDNOW Serial# 9DB6401D
[2022-08-12 20:31] VITALS: BP 195/75; PULSE 90; RESP 18; TEMP 36.6; O2SAT 94
[2022-08-12] MEDS: Donepezil HCl 5 MG TABLET PO (20:33)
[2022-08-12] MEDS: lisinopriL 10 MG TABLET PO (20:33)
[2022-08-12] MEDS: OLANZapine 2.5 MG TABLET PO (20:33)
[2022-08-13] MEDS: Omeprazole 20 MG CAPSULE.DR PO (05:28)
[2022-08-13 05:48] VITALS: BP 154/74; PULSE 113; TEMP 37.1; O2SAT 97
--- NOTE | 2022-08-13 10:08 | P.PNPSI_ITS ---
Subjective Subjective Date of Service: 08/13/22 Reason For Visit: 298.9/F29,F48.9 Subjective Notes: Conditional Voluntary Interim History: The nursing staff reported that yesterday she only took her breakfast but not lunch or dinner, she has refused food and today she looked internally preoccupied and paranoid. On interview the patient denies new symptoms, confused at times still on COVID- 19 precautions. Mental Status Exam Mental Status Exam Patient Appearance: Appropriate Patient Orientation: Person and Situation Level of Consciousness: Awake and Appropriate Patient Behavior: Guarded, Passive and Suspicious Mood Description: Withdrawn Affect Description: Constricted Patient Cognition Impaired: Yes Ability to Follow Directions: Good Speech Pattern: Clear Hallucinations: None Delusions: Paranoid Ideation Thought Process: Distracted and Evasive Thought Content: positive for [place] and positive for Circumstantial Judgement: Fair Diagnostics Vital Signs (24Hr): Vital Signs - 24 hr 08/12/22 20:31 08/13/22 05:48 Temperature 97.9 F 98.7 F Pulse Rate 90 113 H Respiratory Rate 18 Blood Pressure 195/75 H 154/74 H Pulse Oximetry 94 97 Oxygen Delivery Method Room Air Room Air Labs 08/07/22 08:09 Labs: Laboratory Results - last 48 hr 08/12/22 11:05 COVID-19 (J LUIS) Negative COVID-19 Clin Com See Note Imaging Radiology Impressions: ITS Impressions Head CT 08/08/22 11:26 IMPRESSION: No acute intracranial abnormality. 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 Medications Medications Current Medications Acetaminophen (Acetaminophen 325 Mg Tablet) 650 mg PO Q6H PRN PRN Reason: Headache/Pain Mild Scale (1-3) Al Hydroxide/Mg Hydroxide (Magnesium Hydrox/Alum Hydrox 30 Ml Oral.Susp) 30 ml PO Q6H PRN PRN Reason: Heartburn/Nausea Amlodipine Besylate (Amlodipine Besylate 10 Mg Tablet) 10 mg PO DAILY HAMLET; Protocol Last Admin: 08/13/22 09:37 Dose: Not Given Donepezil HCl (Donepezil Hcl 10 Mg Tablet) 10 mg PO BEDTIME HAMLET Hydroxyzine HCl (Hydroxyzine Hcl 25 Mg Tablet) 25 mg PO Q6H PRN PRN Reason: Anxiety Lisinopril (Lisinopril 10 Mg Tablet) 10 mg PO BEDTIME HAMLET; Protocol Last Admin: 08/12/22 20:33 Dose: 10 mg Magnesium Hydroxide (Milk Of Magnesia 30 Ml Oral.Susp) 30 ml PO DAILY PRN PRN Reason: Constipation Olanzapine (Olanzapine 5 Mg Tablet) 5 mg PO BEDTIME HAMLET Omeprazole (Omeprazole 20 Mg Capsule.Dr) 20 mg PO DAILY@0630 HAMLET Last Admin: 08/13/22 05:28 Dose: 20 mg Trazodone HCl (Trazodone Hcl 50 Mg Tablet) 50 mg PO BEDTIME MRX1 PRN PRN Reason: Insomnia Allergies Allergies Allergy/AdvReac Type Severity Reaction Status Date / Time No Known Allergies Allergy Verified 02/27/21 17:35 Assessment & Plan Assessment & Plan (1) Dementia: Status: Acute Code(s): F03.90 - Unspecified dementia, unspecified severity, without behavioral disturbance, psychotic disturbance, mood disturbance, and anxiety (2) Delirium: Status: Acute Code(s): R41.0 - Disorientation, unspecified Plan 87 year old female with history of GERD, former smoker admitted to psychiatry from [facility] for visual hallucinations with consult placed to medicine for medical H&P. #Visual hallucinations -plan per psychiatry #Hypertension -Multiple recorded episodes hypertension with BP up to 204/89 -Initiate amlodipine 5mg daily -Follow and document BP closely #?Atrial fibrillation -denies known history -Stat EKG ordered -Rate controlled. -Lytes normal. Add magnesium and tsh/free t4 #GERD -continue ppi Will continue following for BP management and EKG reading. Needs to be set up with pcp outpt. [facility]. Psychiatry 1. Gather collateral information. 2. Start Zyprexa 2.5 p.o. q.h.s. to target hallucinations at night. Increase Zyprexa up to 5 mg p.o. q.h.s. on August 13 3. Continue medical workout. 4. Start Aricept 5 mg p.o. q.h.s. increase Aricept to 10 mg p.o. q.h.s. on August 13 Reason for contiued inpatient stay Substantial Risk for: inability to function, rapid decompensation and med/psych decompensation Time Spent With Patient Time: Total time managing care of this patient today _20___ minutes.
[2022-08-13 18:15] VITALS: BP 112/66; PULSE 108; RESP 18; TEMP 36.2; O2SAT 95
[2022-08-14] MEDS: Omeprazole 20 MG CAPSULE.DR PO (06:44)
[2022-08-14 08:00] VITALS: BP 149/86; PULSE 106; TEMP 36.2; O2SAT 96
--- NOTE | 2022-08-14 12:16 | HO.PSYCHPN ---
Subjective Subjective Date of Service: 08/14/22 Reason For Visit: 298.9/F29,F48.9 Subjective Notes: Conditional Voluntary Interim History: The nursing staff reported the patient had been cranky but visible in the unit. She had been noncompliant with medications last night and apparently when she was in the previous admission at [facility] she was paranoid thinking that the food was poisoned. The occupational therapist reported that she was out in the groups in the afternoon with minimal participation. The social media editor reported that her son will try to fix her trailer home and he requested a few more days. On interview I explained the patient that we can discharge her next Friday if she is fully compliant with treatment. No new symptoms. Mental Status Exam Mental Status Exam Patient Appearance: Appropriate Patient Orientation: Person and Situation Level of Consciousness: Awake and Appropriate Patient Behavior: Guarded and Passive Mood Description: Withdrawn and Constricted Affect Description: Calm Patient Cognition Impaired: Yes Ability to Follow Directions: Good Speech Pattern: Clear Hallucinations: None Delusions: Paranoid Ideation Thought Process: Distracted and Evasive Thought Content: positive for [place] and positive for Circumstantial Judgement: Poor Diagnostics Vital Signs (24Hr): Vital Signs - 24 hr 08/13/22 18:15 08/14/22 08:00 Temperature 97.1 F 97.2 F Pulse Rate 108 H 106 H Respiratory Rate 18 Blood Pressure 112/66 149/86 H Pulse Oximetry 95 96 Oxygen Delivery Method Room Air Room Air Labs 08/07/22 08:09 Imaging Radiology Impressions: ITS Impressions Head CT 08/08/22 11:26 IMPRESSION: No acute intracranial abnormality. 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 Medications Medications Current Medications Acetaminophen (Acetaminophen 325 Mg Tablet) 650 mg PO Q6H PRN PRN Reason: Headache/Pain Mild Scale (1-3) Al Hydroxide/Mg Hydroxide (Magnesium Hydrox/Alum Hydrox 30 Ml Oral.Susp) 30 ml PO Q6H PRN PRN Reason: Heartburn/Nausea Amlodipine Besylate (Amlodipine Besylate 10 Mg Tablet) 10 mg PO DAILY HAMLET; Protocol Last Admin: 08/14/22 08:35 Dose: Not Given Donepezil HCl (Donepezil Hcl 10 Mg Tablet) 10 mg PO BEDTIME HAMLET Last Admin: 08/13/22 20:34 Dose: Not Given Hydroxyzine HCl (Hydroxyzine Hcl 25 Mg Tablet) 25 mg PO Q6H PRN PRN Reason: Anxiety Lisinopril (Lisinopril 10 Mg Tablet) 10 mg PO BEDTIME HAMLET; Protocol Last Admin: 08/13/22 20:34 Dose: Not Given Magnesium Hydroxide (Milk Of Magnesia 30 Ml Oral.Susp) 30 ml PO DAILY PRN PRN Reason: Constipation Olanzapine (Olanzapine 5 Mg Tablet) 5 mg PO BEDTIME HAMLET Last Admin: 08/13/22 20:35 Dose: Not Given Omeprazole (Omeprazole 20 Mg Capsule.Dr) 20 mg PO DAILY@0630 HAMLET Last Admin: 08/14/22 06:44 Dose: 20 mg Trazodone HCl (Trazodone Hcl 50 Mg Tablet) 50 mg PO BEDTIME MRX1 PRN PRN Reason: Insomnia Allergies Allergies Allergy/AdvReac Type Severity Reaction Status Date / Time No Known Allergies Allergy Verified 02/27/21 17:35 Assessment & Plan Assessment & Plan (1) Dementia: Status: Acute Code(s): F03.90 - Unspecified dementia, unspecified severity, without behavioral disturbance, psychotic disturbance, mood disturbance, and anxiety (2) Delirium: Status: Acute Code(s): R41.0 - Disorientation, unspecified Plan 87 year old female with history of GERD, former smoker admitted to psychiatry from [facility] for visual hallucinations with consult placed to medicine for medical H&P. #Visual hallucinations -plan per psychiatry #Hypertension -Multiple recorded episodes hypertension with BP up to 204/89 -Initiate amlodipine 5mg daily -Follow and document BP closely #?Atrial fibrillation -denies known history -Stat EKG ordered -Rate controlled. -Lytes normal. Add magnesium and tsh/free t4 #GERD -continue ppi Will continue following for BP management and EKG reading. Needs to be set up with pcp outpt. [facility]. Psychiatry 1. Gather collateral information. 2. Start Zyprexa 2.5 p.o. q.h.s. to target hallucinations at night. Increase Zyprexa up to 5 mg p.o. q.h.s. on August 13 3. Continue medical workout. 4. Start Aricept 5 mg p.o. q.h.s. increase Aricept to 10 mg p.o. q.h.s. on August 13. 5. Start discharge planning. Reason for contiued inpatient stay Substantial Risk for: inability to function, rapid decompensation and med/psych decompensation Time Spent With Patient Time: Total time managing care of this patient today __20__ minutes.
[2022-08-14 18:00] VITALS: BP 142/78; PULSE 85; TEMP 37; O2SAT 100
[2022-08-14] MEDS: lisinopriL 10 MG TABLET PO (20:48)
[2022-08-14] MEDS: Donepezil HCl 10 MG TABLET PO (20:48)
[2022-08-14] MEDS: OLANZapine 5 MG TABLET PO (20:48)
[2022-08-15] VITALS (7 sets, daily range): BP systolic 137–194; BP diastolic 70–98; PULSE 94–123; RESP 16–18; TEMP 37.7; O2SAT 92–98
--- NOTE | 2022-08-15 06:51 | PC.NURSE ---
PT found unresponsive at 6:20am by another RN who then called this RN to PT bedside. PT was breathing and had a pulse, but unresponsive. Rapid response called, MD Ladd ordered all orders STAT -EKG, POC, head CT, chest xray, UA, and stat labs BMP, CBC with diff, troponins and lactic acid. PTs VS checked every 15 minutes and MD suárezs VS checked every 15 minutes for the next hour. VS at 620am T 99.8, P 113, O2 97%/RA, BP 158/76, R 16. POC at 625 was 109. VS 6:35am T 99.8, P 114, O2 92%/RA, BP 140/98, R 16. VS 640 T 99.8, R 18, O2 94%/RA, P 116, BP 186/85. PT left floor at [address] with security. PT last seen walking and talking at 845 pm by this RN. PT was asleep the whole night. At this time PT is still off the floor in Cat Scan. PT now in [facility] ED.
--- NOTE | 2022-08-15 07:05 | ECG_ITS ---
Test Reason : Pt. found unaresponsive Blood Pressure : / mmHG Vent. Rate : 117 BPM Atrial Rate : 117 BPM P-R Int : 162 ms QRS Dur : 086 ms QT Int : 340 ms P-R-T Axes : 068 061 001 degrees QTc Int : [address] & T wave abnormality, consider lateral ischemia Abnormal ECG When compared with ECG of 07-AUG-2022 14:09, Premature supraventricular complexes are no longer Present Vent. rate has increased BY [address] more depressed Anterior leads Inverted T waves have replaced nonspecific T wave abnormality in Anterior leads Referred By: Melina Ladd Electronically Signed By:MALLORY DELVALLE
--- NOTE | 2022-08-15 07:09 | P.EN_ITS ---
Event Note Date of Service: 08/15/22 Event Note: a rapid response was called on the pt at 6:35 for unresponsiveness. Pt eyes are closed but when i try to open her eye lids, she tries to shut them, her eye balls are tracking and moving away from looking at me. she is hemodynamically stable. Glucose 109. her vitals are stable. EKG shows sinus tachy with HR in the 110s. has evidence of ST depressions in V4- V6 will send pt to CT head given encephalopathy will obtain labs , no new meds were given overnight possible catatonic vs psych issue as etiology will follow above work up, and transfer to medical floor if necessary Time Spent With Patient Time: Total time managing care of this patient today ____ minutes.
[2022-08-15 07:21] LABS: Glucose, Whole Blood 109 mg/dL (60-115)
--- NOTE | 2022-08-15 07:37 | HO.PSYCHPN ---
Subjective Subjective Date of Service: 08/15/22 Reason For Visit: 298.9/F29,F48.9 Subjective Notes: Conditional Voluntary Interim History: The nursing staff reported the patient had been come and pleasant, she took her medications last night. On interview the patient denies new symptoms she states that she does not have side effects with the current medications. Mental Status Exam Mental Status Exam Patient Appearance: Appropriate Patient Orientation: Person and Situation Level of Consciousness: Awake and Appropriate Patient Behavior: Guarded and Passive Mood Description: Withdrawn Affect Description: Constricted Patient Cognition Impaired: No Ability to Follow Directions: Good Speech Pattern: Clear Hallucinations: None Delusions: Paranoid Ideation Thought Process: Distracted and Slowed Thinking Thought Content: positive for [place] and positive for Circumstantial Judgement: Fair Diagnostics Vital Signs (24Hr): Vital Signs - 24 hr 08/14/22 08:00 08/14/22 18:00 08/15/22 06:20 Temperature 97.2 F 98.6 F 99.8 F Pulse Rate 106 H 85 113 H Respiratory Rate 16 Blood Pressure 149/86 H 142/78 H 158/76 H Pulse Oximetry 96 100 97 Oxygen Delivery Method Room Air Room Air Room Air 08/15/22 06:35 08/15/22 06:40 Temperature 99.8 F 99.8 F Pulse Rate 114 H 116 H Respiratory Rate 16 18 Blood Pressure 140/98 H 186/85 H Pulse Oximetry 92 94 Oxygen Delivery Method Room Air Room Air Labs 08/07/22 08:09 Labs: Laboratory Results - last 48 hr 08/15/22 06:32 POC Glucose 109 Imaging Radiology Impressions: ITS Impressions Head CT 08/08/22 11:26 IMPRESSION: No acute intracranial abnormality. 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 Medications Medications Current Medications Acetaminophen (Acetaminophen 325 Mg Tablet) 650 mg PO Q6H PRN PRN Reason: Headache/Pain Mild Scale (1-3) Al Hydroxide/Mg Hydroxide (Magnesium Hydrox/Alum Hydrox 30 Ml Oral.Susp) 30 ml PO Q6H PRN PRN Reason: Heartburn/Nausea Amlodipine Besylate (Amlodipine Besylate 10 Mg Tablet) 10 mg PO DAILY HAMLET; Protocol Last Admin: 08/14/22 08:35 Dose: Not Given Donepezil HCl (Donepezil Hcl 10 Mg Tablet) 10 mg PO BEDTIME HAMLET Last Admin: 08/14/22 20:48 Dose: 10 mg Hydroxyzine HCl (Hydroxyzine Hcl 25 Mg Tablet) 25 mg PO Q6H PRN PRN Reason: Anxiety Lisinopril (Lisinopril 10 Mg Tablet) 10 mg PO BEDTIME HAMLET; Protocol Last Admin: 08/14/22 20:48 Dose: 10 mg Magnesium Hydroxide (Milk Of Magnesia 30 Ml Oral.Susp) 30 ml PO DAILY PRN PRN Reason: Constipation Olanzapine (Olanzapine 5 Mg Tablet) 5 mg PO BEDTIME HAMLET Last Admin: 08/14/22 20:48 Dose: 5 mg Omeprazole (Omeprazole 20 Mg Capsule.Dr) 20 mg PO DAILY@0630 [facility] Last Admin: 08/15/22 06:53 Dose: Not Given Trazodone HCl (Trazodone Hcl 50 Mg Tablet) 50 mg PO BEDTIME MRX1 PRN PRN Reason: Insomnia Allergies Allergies Allergy/AdvReac Type Severity Reaction Status Date / Time No Known Allergies Allergy Verified 02/27/21 17:35 Assessment & Plan Assessment & Plan (1) Dementia: Status: Acute Code(s): F03.90 - Unspecified dementia, unspecified severity, without behavioral disturbance, psychotic disturbance, mood disturbance, and anxiety (2) Delirium: Status: Acute Code(s): R41.0 - Disorientation, unspecified Plan 87 year old female with history of GERD, former smoker admitted to psychiatry from [facility] for visual hallucinations with consult placed to medicine for medical H&P. #Visual hallucinations -plan per psychiatry #Hypertension -Multiple recorded episodes hypertension with BP up to 204/89 -Initiate amlodipine 5mg daily -Follow and document BP closely #?Atrial fibrillation -denies known history -Stat EKG ordered -Rate controlled. -Lytes normal. Add magnesium and tsh/free t4 #GERD -continue ppi Will continue following for BP management and EKG reading. Needs to be set up with pcp outpt. [facility]. Psychiatry 1. Gather collateral information. 2. Start Zyprexa 2.5 p.o. q.h.s. to target hallucinations at night. Increase Zyprexa up to 5 mg p.o. q.h.s. on August 13 3. Continue medical workout. 4. Start Aricept 5 mg p.o. q.h.s. increase Aricept to 10 mg p.o. q.h.s. on August 13. 5. Start discharge planning. We are scheduling her discharge for next Friday Reason for contiued inpatient stay Substantial Risk for: inability to function, rapid decompensation and med/psych decompensation Time Spent With Patient Time: Total time managing care of this patient today __20__ minutes.
[2022-08-15 07:52] LABS: ABG Base Excess 6.7 mmol/L; ABG HCO3 31 mmol/L (22-26); ABG pCO2 44 mmHg (32-45); ABG pH 7.45 (7.35-7.45); ABG pO2 82 mmHg (83-108)
--- NOTE | 2022-08-15 08:09 | PM.PSYDC ---
DS: Providers Provider Date of Service: 08/15/22 Date of admission: 08/06/22 13:11 Primary care physician: Unknown Physician Consults: 08/06/22 13:48 Consult to Hospitalist Routine Consulting Provider: Hospitalist Reason For Exam: Direct admission 08/15/22 07:13 Consult to Hospitalist Stat Consulting Provider: Hospitalist Reason For Exam: PT in need of emergent care DS: Diagnosis Discharge Diagnosis (1) Dementia: Status: Acute (2) Delirium: Status: Acute DS: Medications Discharge Medications Home Medications: Home Medications Medication Instructions Recorded Confirmed omeprazole magnesium 20 mg 20 mg PO DAILY 08/07/22 08/07/22 tablet,delayed release (Prilosec OTC) Previous Rx's Medication Instructions Recorded acetaminophen 325 mg tablet 650 mg PO Q6H PRN Headache/Pain 08/15/22 Mild Scale (1-3) #7 tabs amlodipine 10 mg tablet 10 mg PO DAILY #7 tabs 08/15/22 donepezil 10 mg tablet 10 mg PO BEDTIME #7 tabs 08/15/22 lisinopril 10 mg tablet 10 mg PO BEDTIME #7 tabs 08/15/22 olanzapine 5 mg tablet 5 mg PO BEDTIME #7 tabs 08/15/22 trazodone 50 mg tablet 50 mg PO BEDTIME MRX1 PRN Insomnia 08/15/22 #7 tabs Mental Status Exam Mental Status Exam Narrative: The patient is on hospital gowns, and unresponsive to questioning or verbal stimuli. Mental status unable to fully assess due to the change of mental status. Data Data Completed and Pending Completed studies during hospitalization [Text1]: 08/12/22 08/15/22 08/15/22 11:05 06:32 07:44 O2 Saturation 97.0 ABG pH at Pt Temp 7.45 ABG pCO2 at Pt Temp 44 ABG pO2 at Pt Temp 82 L ABG HCO3 31 H ABG Base Excess (Actual) 6.7 POC Glucose 109 COVID-19 (J LUIS) Negative COVID-19 Clin Com See Note Imaging Diagnostic Imaging Impressions Head CT 08/08/22 11:26 IMPRESSION: No acute intracranial abnormality. 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 Head CT 08/15/22 07:21 IMPRESSION: Redemonstration of diffuse Deep white matter and periventricular hypoattenuation, nonspecific; most likely sequela of chronic ischemia/microvascular angiopathy ischemia. No intracranial bleed. No clear evidence of vascular territorial infarct. Please note that Normal CT scan does not rule out the possibility of hyperacute infarct in the first 12 hours. If patient symptoms persist may consider treatment and correlation with MRI, which is more sensitive for early acute infarct. This critical result was discussed with Dr. Quinn by telephone at 08/15/2022 7:45 AM and it was ascertained that the content and urgency of the report was understood at the time of direct communication. DS: Summary Hospital Course Hospital Course: The patient is an elderly female with a prior history of dementia who was admitted into the hospital since she has psychotic symptoms such as visual hallucinations, historically in clear correlations with UTI but this time there were no medical symptoms. Please see the HPI for further details. The patient was started on Zyprexa titrated up to 5 mg p.o. q.h.s. with for improvement of her symptoms. 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 She will be transferred to [facility] for medical treatment and follow up on workout. Time spent discussing smoking cessation with patient: 3 to 10 minutes Status at Discharge Cognitive/behavioral status at discharge: Impaired Functional status at discharge: bed bound Overall status at discharge: patient is not back to baseline Time Spent with Patient Time attestation: Total time managing care of this patient today __30__ minutes. Time spent: Less than 30 minutes Discharge Plan Discharge Anticipated Discharge Date/Time: 08/15/22 08:05 Disposition: [facility] Referrals: Physician,Unknown J [Primary Care Provider] - 1 Week Discharge Medications: New acetaminophen 325 mg Tablet 650 mg PO Q6H PRN (Reason: Headache/Pain Mild Scale (1-3)) Qty: 7 0RF trazodone 50 mg Tablet 50 mg PO BEDTIME MRX1 PRN (Reason: Insomnia) Qty: 7 0RF donepezil 10 mg Tablet 10 mg PO BEDTIME Qty: 7 0RF olanzapine 5 mg Tablet 5 mg PO BEDTIME Qty: 7 0RF amlodipine 10 mg Tablet 10 mg PO DAILY Qty: 7 0RF Protocol: Hold for SBP< HOLD for SBP < : 90 lisinopril 10 mg Tablet 10 mg PO BEDTIME Qty: 7 0RF Protocol: Hold for SBP< HOLD for SBP < : 90 Continued omeprazole magnesium [Prilosec OTC] 20 mg Tablet,Delayed Release (Dr/Ec) 20 mg PO DAILY Discharge Orders: Discharge Order (Routine); Ordered 08/15/22 Ordered By: Harvey Pat Forms: Patient Portal Discharge page Care Plan Goals: Care plan goals achieved in this admission Health Concerns: The patient was transferred to Medicine since she had altered mental status, unresponsive Plan of Treatment: Continue with medical and psychiatric treatment Assessment: The patient is an elderly female with a history of dementia who was admitted for visual hallucinations. Historically, she had have auditory and visual hallucinations in the context of UTI. She was initially admitted for that but she became unresponsive and she was transferred to Medicine for medical treatment.
[2022-08-15 08:32] LABS: MANUAL DIFF FLAG NO
[2022-08-15 08:34] LABS: Basophils Percent Auto 0.5 % (0-2); Eosinophils Percent Auto 0.3 % (0-4); Hematocrit 39.3 % (37.0-47.0); Hemoglobin 12.8 g/dl (12.0-16.0); Imm Gran Abs Auto 0.02 X10*3/uL (0.00-0.03); Imm Gran Pct Auto 0.3 % (0.0-0.4); Lymphocytes Absolute Auto 0.9 X10*3/uL (1.2-4.9); Lymphocytes Percent Auto 15.3 % (20-40); Mean Corpuscular HGB Conc 32.6 g/dl (31.0-35.0); Mean Corpuscular Hemoglobin 29.5 pg (27.0-33.0); Mean Corpuscular Volume 90.6 fL (80.0-98.0); Mean Platelet Volume 11.4 fL (9.4-12.3); Monocytes Absolute Auto 0.6 X10*3/uL (0.1-1.2); Monocytes Percent Auto 9.8 % (2-11); Neutrophils Absolute Auto 4.5 x10*3/uL (2.0-8.3); Neutrophils Percent Auto 73.8 % (45-73); Platelet Count 144 X10*3/uL (160-400); Red Blood Count 4.34 X10*6/uL (4.20-5.50); Red Cell Distribution Width 13.2 % (11.0-16.0); White Blood Count 6.1 X10*3/uL (4.8-10.8)
--- NOTE | 2022-08-15 08:36 | PC.NURSE ---
recieved pt on stretcher remains unresposive vs taken q15 min awake at 0825 coughing prod clear thick secretions. UA and blood cultures collected. report given to imc nurse pt transfered to IMC via stretcher with sitter and RN
[2022-08-15 08:38] LABS: Appearance Urine Cloudy; Color Urine Yellow; Glucose Urine UA Negative (Negative); Leukocyte Esterase Urine Moderate (2+) (Negative); Nitrite Urine Negative (Negative); PH 5.5 (5.0-9.0); UMIC TRIGGER UA YES; Urine Blood Negative (Negative); Urine Ketones Trace mg/dL (Negative); Urine Protein 30 (1+) mg/dL (Neg-Trace)
[2022-08-15 08:43] LABS: Bacteria Urine None Seen (None Seen); RBC Urine 0-2 /HPF (0-2); Squamous Epithelial Cell Urine 0-2 /HPF (0-2); WBC Urine >50 /HPF (0-5)
[2022-08-15 08:44] LABS: Lactic Acid 0.8 mmol/L (0.5-2.0)
[2022-08-15 08:47] LABS: Anion Gap 15 (12-20); Blood Urea Nitrogen 29 mg/dL (9-16); Calcium 9.3 mg/dL (8.4-10.2); Carbon Dioxide 27 mmol/L (22-29); Chloride 108 mmol/L (96-108); Estimated Glomerular Filt Rate > 60; Glucose Random 97 mg/dL (60-115); Potassium 3.7 mmol/L (3.3-5.1); Sodium 146 mmol/L (135-145)
[2022-08-15 08:55] LABS: Troponin-I High Sensitivity 11.1 ng/L (<3.5-17.0)
[2022-08-16 01:22] LABS: ABG Refer to POC result
== END 2022-08-15 08:29 | disposition short-term general hospital (02) | DRG 884 ==
PROVIDERS: Internal Medicine; Physician Assistant; Social Worker; Admitting Provider Psychiatry & Neurology Psychiatry; Visit Provider Psychiatry & Neurology Psychiatry
DX: F03.90 Unspecified dementia, unspecified severity, without behavioral disturbance, psychotic disturbance, mood disturbance, and anxiety (principal); F05 Delirium due to known physiological condition; K21.9 Gastro-esophageal reflux disease without esophagitis; I49.3 Ventricular premature depolarization; I10 Essential (primary) hypertension; I48.91 Unspecified atrial fibrillation; Z20.822 Contact with and (suspected) exposure to COVID-19; Z87.891 Personal history of nicotine dependence; Z79.899 Other long term (current) drug therapy
CPT/HCPCS: 36415; 36600; 70450; 80048; 80053; 80061; 81001; 82803; 82947; 83605; 83735; 84443; 84484; 85025; 87040; 87635; 93005

== ENCOUNTER 2022-08-15 08:05 | Inpatient (IN) | payer MEDICARE, BC, SELFPAY ==
--- NOTE | ~2022-08-15 | XR_ITS ---
EXAMINATION: XR CHEST CLINICAL INFORMATION: Unresponsive COMPARISON: None TECHNIQUE: Frontal view of the chest was obtained. FINDINGS: Lungs are hypoinflated. Heart size probably within normal limits allowing for this. No infiltrates, effusions or lung masses are seen. Degenerative changes are present in the shoulders as well as the spine with an associated biconvex scoliosis. XR/XR chest 1V IMPRESSION: No acute intrathoracic disease. Hypoinflated lungs.
--- NOTE | 2022-08-15 08:28 | PM.IMHP ---
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 According to the crisis assessment, the patient had a similar episode for the last 2 years with visual hallucinations stating there are people in her room.? Adult protective Services has been involved and in this location, the patient complained of visual hallucinations she was very paranoid and scared.? All his previous visual hallucinations were in clear correlation to UTI.? She was admitted to the emergency room of [facility] had a very extensive medical workout with no evidence of UTI.? Since the patient had a sporadic visual hallucinations and disorganized thought process she was deemed inpatient level of care and transferring to this facility for psychiatric stabilization.? Admitted to [facility] 08/07/22 [facility] acute medical issues. On 08/15/2022, patient found unresponsive at 06:35 (last known well time 2030 08/14/20[address] of head negative for acute bleed is; not a candidate for tPA at this time. Patient has a history of altered behavior secondary to UTIs in the past. At this point, patient will be admitted to telemetry under the hospitalist service and we will continue the workup. At the time of transfer, she is hemodynamically stable however unresponsive. Staff did not note any seizure activity this a.m. Review of Systems Review of Systems: unable to obtain [facility] Medical History (Updated 08/15/22 @ 08:38 by Fredrick Simmons DO) Acid reflux HTN (hypertension) Social History Household Members: None Housing: Other Housing Other:: Mobile home Do you presently have visiting nurse or other home services: No Patient Tobacco Use Status: Former Tobacco user Quit Date: 55 years ago Tobacco use type: Cigarette e-Cigarette/Vaping Use: Never Used Second Hand Smoke Exposure: No Advance Directives: No Advance Directives Information Provided: No service: No Sexual orientation: Straight/Heterosexual Meds Allergies Allergy/AdvReac Type Severity Reaction Status Date / Time No Known Allergies Allergy Verified 02/27/21 17:35 Active Medications: Current Medications Ceftriaxone Sodium 2 gm/ (Sodium Chloride) 50 mls @ 100 mls/hr IV ONCE ONE Stop: 08/15/22 08:52 Sodium Chloride (0.9 % Sodium Chloride Flush 3 Ml Syringe) 3 ml IVFLUSH QSHIFT [facility] Home Medications Medication Instructions Recorded Confirmed Last Taken Type omeprazole magnesium 20 mg 20 mg PO DAILY 08/07/22 08/07/22 Unknown History tablet,delayed release (Prilosec OTC) Physical Exam Const: Other: Obtunded; respiratory rate stable Cardio: Other: no S4; positive S1-S2; no S3 murmurs rubs or gallops GI: Other: soft nontender nondistended normoactive bowel sounds Extrem: Other: no edema bilaterally Assessment and Plan (1) Encephalopathy: Status: Acute (2) Dementia: Status: Acute (3) HTN (hypertension): Status: Acute (4) Acid reflux: Status: Acute Plan On 08/15/2022, patient found unresponsive at 06:35 (last known well time 202908/14/2022 ). CT of head negative for acute bleed is; not a candidate for tPA at this time. Patient has a history of altered behavior secondary to UTIs in the past. At this point, patient will be admitted to telemetry under the hospitalist service and we will continue the workup. At the time of transfer, she is hemodynamically stable however unresponsive 1.Encephalopathy - initial CT without acute changes; findings consistent with deep white matter and periventricular hypoattenuation that is unchanged from previous head CT 08/08/2022. Patient has history of mental status changes with UTI - CBC / CMP / cath urine with culture - will give 1 dose of ceftriaxone empirically given strong history behavior changes with UTI - if UA negative. . . Will check EEG and ask Neurology input; swallow eval/MRI 2. Dementia - given unresponsive state will hold all previous meds - restart when clinically appropriate 3. Hypertension -hold p.o. meds -will utilize labetalol - add back meds when clinically appropriate 4.GERD - utilize Pepcid IV until taking p.o. Full code Boots Call placed to Wilder Iniguez (son)..... message left on machine Patient will require 2 midnight inpatient stay to complete workup for acute encephalopathy; empiric IV antibiotics pending urine. This cannot be achieved in a lesser acute setting Time Spent With Patient Time: Total time managing care of this patient today ____ minutes. Quality Stroke Does the patient have a stroke diagnosis?: No VTE Prior VTE?: No VTE Risk Level:: Medical - moderate - high VTE Device Contraindication: N/A - Device Ordered VTE Drug Contraindication: Treatment Not Indicated
[2022-08-15 09:20] VITALS: BP 166/70; PULSE 90; RESP 20; TEMP 37.1; O2SAT 96
--- NOTE | 2022-08-15 10:04 | PHA.MEDREC ---
Pharmacy Consult ? Medication Reconciliation Pharmacy has completed the medication reconciliation. Patient transfer from S1 to medical floor. Used dischare summary for med rec. Mone Toney, OnelD
[2022-08-15 11:27] VITALS: BP 168/64; PULSE 121; RESP 20; TEMP 37.4; O2SAT 96
[2022-08-15] MEDS: cefTRIAXone sodium 2 GM in 0.9 % Sodium Chloride 50 ML IV (15:27)
[2022-08-15] MEDS: 0.9 % Sodium Chloride Flush 3 ML SYRINGE IVFLUSH (15:27)
--- NOTE | 2022-08-15 15:42 | MHC.CM.PN ---
Female 87 DX Encephalopathy. Patient transferred from Psych floor for period of unresponsiveness. She is alert and conversational during this CM assessment interview. Patients EMR was also utilized for the assessment. She states that she lives alone. She reports having a HCP at home. She states that she received 1x covid vaxx. She receives assist from a friend to buy groceries. She states that her friend will take her to MD appointments after discharge. DP return to psych floor via WC.
[2022-08-15 15:44] VITALS: PULSE 87; RESP 18; TEMP 36.6; O2SAT 97
[2022-08-15 19:52] VITALS: BP 110/68; PULSE 108; RESP 19; TEMP 36.6; O2SAT 92
[2022-08-15 22:11] LABS: Appearance Urine Turbid; Color Urine Yellow; Glucose Urine UA Negative (Negative); Leukocyte Esterase Urine Large (3+) (Negative); Nitrite Urine Negative (Negative); UMIC TRIGGER UACC YES; Urine Blood Moderate (2+) (Negative); Urine Ketones 15 mg/dL (Negative); Urine Protein 100 (2+) mg/dL (Neg-Trace)
[2022-08-15 22:26] LABS: Bacteria Urine None Seen (None Seen); Hyaline Casts Urine 0-2 /LPF (0-2); UACC Culture Trigger YES; WBC Urine >50 /HPF (0-5)
[2022-08-15 23:47] VITALS: BP 117/43; PULSE 85; RESP 15; TEMP 36.7; O2SAT 93
[2022-08-16 04:00] VITALS: BP 111/60; PULSE 88; RESP 16; TEMP 37.1; O2SAT 94
[2022-08-16 08:00] VITALS: BP 111/69; PULSE 86; RESP 18; TEMP 36.6; O2SAT 94
[2022-08-16] MEDS: 0.9 % Sodium Chloride Flush 3 ML SYRINGE IVFLUSH ×2 (10:54→23:49)
[2022-08-16 12:00] VITALS: BP 114/65; PULSE 78; RESP 18; TEMP 37.1; O2SAT 95
[2022-08-16 13:29] VITALS: BP 114/65; PULSE 78; O2SAT 95
--- NOTE | 2022-08-16 13:35 | P.DS_ITS ---
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 According to the crisis assessment, the patient had a similar episode for the last 2 years with visual hallucinations stating there are people in her room.? Adult protective Services has been involved and in this location, the patient complained of visual hallucinations she was very paranoid and scared.? All his previous visual hallucinations were in clear correlation to UTI.? She was admitted to the emergency room of [facility] had a very extensive medical workout with no evidence of UTI.? Since the patient had a sporadic visual hallucinations and disorganized thought process she was deemed inpatient level of care and transferring to this facility for psychiatric stabilization.? Admitted to [facility] 08/07/22 [facility] acute medical issues.? On 08/15/2022, patient found unresponsive at 06:35 (last known well time? 202908/14/2022 ). CT of head negative for acute bleed is; not a candidate for tPA at this time.? Patient has a history of altered behavior secondary to UTIs in the past.? At this point, patient will be admitted to telemetry under the hospitalist service and we will continue the workup.? At the time of transfer, she is hemodynamically stable however unresponsive. Staff did not note any seizure activity this a.m. [facility] admitted to telemetry. Workup including CT of the head labs blood cultures failed to demonstrate an acute pathology for her presentation. Urine had active sediment upon admission and she was treated empirically with ceftriaxone. The afternoon of admission, prior to administration of antibiotic, the patient return to her baseline and was alert pleasant and cooperative. She has no recollection of the event. During her hospital stay she did not demonstrate any seizure activity. At this point time she is medically acceptable for transfer back to [facility]. This is discussed with Dr. Allison Time Spent with Patient Time attestation: Total time managing care of this patient today ____ minutes. Discharge coordination time: Greater than 30 minutes Quality: Safe Use of Opioids Does Pt have an Active Cancer Diagnosis on the Problem List?: No Quality: Stroke Does the patient have a stroke diagnosis?: No Physical Exam Vital Signs: Vital Signs: Last Vital Signs Temp 98.7 F 08/16/22 12:00 Pulse 78 08/16/22 12:00 Resp 18 08/16/22 12:00 BP 114/65 08/16/22 12:00 Pulse Ox 95 08/16/22 12:00 O2 Del Method 08/16/22 04:00 Const: Other: awake alert oriented x2 Resp: Other: clear to auscultation bilaterally no rales rhonchi or wheezes Cardio: Other: no S4; positive S1-S2; no S3 murmurs rubs or gallops GI: Other: soft nontender nondistended normoactive bowel sounds Neuro: Other: cranial nerves 2-12 grossly intact as tested. Motor is 5/5 all extremities. Sensation intact. Gait steady with walker Extrem: Other: no edema bilaterally DS: Data Data Completed and Pending Labs on day of discharge: Laboratory Results - last 24 hr 08/15/22 21:59 Urine Color Yellow Urine Appearance Turbid Urine pH 6.0 Ur Specific [place] 1.020 Urine Protein 100 (2+) H Urine Glucose (UA) Negative Urine Ketones 15 Urine Blood Moderate (2+) H Urine Nitrite Negative Ur Leukocyte Esterase Large (3+) H Urine RBC 3-5 H Urine WBC >50 H Ur Squamous Epith Cells 3-5 Urine Bacteria None Seen Hyaline Casts 0-2 Preliminary micro results at discharge 08/15/22 22:30 Urine Culture - Preliminary Urine clean catch - Urine garcía top Culture too young to evaluate. Discharge Plan Discharge Patient Disposition: Xfer Psychiatric Hosp Discharge Diagnosis: encephalopathy Referrals: Physician,Unknown J [Primary Care Provider] - 1 Week Discharge Medications: New cefuroxime axetil 500 mg tablet 500 mg PO BID 7 Days Qty: 14 0RF Continued omeprazole magnesium [Prilosec OTC] 20 mg Tablet,Delayed Release (Dr/Ec) 20 mg PO DAILY acetaminophen 325 mg Tablet 650 mg PO Q6H PRN (Reason: Headache/Pain Mild Scale (1-3)) Qty: 7 0RF trazodone 50 mg Tablet 50 mg PO BEDTIME MRX1 PRN (Reason: Insomnia) Qty: 7 0RF donepezil 10 mg Tablet 10 mg PO BEDTIME Qty: 7 0RF olanzapine 5 mg Tablet 5 mg PO BEDTIME Qty: 7 0RF amlodipine 10 mg Tablet 10 mg PO DAILY Qty: 7 0RF Protocol: Hold for SBP< HOLD for SBP < : 90 lisinopril 10 mg Tablet 10 mg PO BEDTIME Qty: 7 0RF Protocol: Hold for SBP< HOLD for SBP < : 90 Discharge Orders: Discharge Order (Routine); Ordered 08/15/22 Ordered By: Fredrick Simmons Diet: Advance to usual diet Activity on Discharge: As tolerated Stand Alone Forms: Patient Portal Discharge page Care Plan Goals: Resume all meds as per psych Health Concerns: seen by Physical therapy; recommend ambulate with walker Plan of Treatment: as per receiving physician Assessment: see discharge summary
[2022-08-16 16:00] VITALS: BP 118/68; PULSE 69; TEMP 36.7; O2SAT 97
[2022-08-16 17:33] LABS: Glucose, Whole Blood 97 mg/dL (60-115)
[2022-08-16 20:00] VITALS: BP 145/67; PULSE 114; RESP 20; TEMP 36.1; O2SAT 93
[2022-08-16] MEDS: OLANZapine 5 MG TABLET PO (20:05)
[2022-08-17] VITALS (7 sets, daily range): BP systolic 130–153; BP diastolic 59–82; PULSE 85–111; RESP 12–20; TEMP 36.2–37.7; O2SAT 91–92
[2022-08-17] MEDS: 0.9 % Sodium Chloride Flush 3 ML SYRINGE IVFLUSH ×5 (01:29→23:34)
--- NOTE | 2022-08-17 09:41 | MHC.CM.PN ---
SEE MD MELENDEZ Summary; Patient is medically cleared to return to [facility].
[2022-08-17] MEDS: OLANZapine 5 MG TABLET PO (22:06)
[2022-08-18 03:41] VITALS: BP 140/59; PULSE 84; RESP 18; TEMP 37.2; O2SAT 91
[2022-08-18 08:00] VITALS: BP 131/67; PULSE 95; RESP 16; TEMP 37.2; O2SAT 94
[2022-08-18] MEDS: 0.9 % Sodium Chloride Flush 3 ML SYRINGE IVFLUSH (09:22)
--- NOTE | 2022-08-18 09:42 | HO.PM.IMPN ---
Subjective Subjective Date of Service: 08/18/22 Interval History: no acute events overnight. Awaiting Review of Systems unable to obtain Physical Exam Vital Signs: Vital Signs: Last Vital Signs Temp 99.0 F 08/18/22 08:00 Pulse 95 08/18/22 08:00 Resp 16 08/18/22 08:00 BP 131/67 08/18/22 08:00 Pulse Ox 94 08/18/22 08:00 O2 Del Method 08/18/22 08:00 Objective Data Active Medications Olanzapine (Olanzapine 5 Mg Tablet) 5 mg PO BEDTIME [facility] Last Admin: 08/17/22 22:06 Dose: 5 mg Documented By: FARTUN Sodium Chloride (0.9 % Sodium Chloride Flush 3 Ml Syringe) 3 ml IVFLUSH QSHIFT [facility] Last Admin: 08/18/22 09:22 Dose: 3 ml Documented By: WINSOME Sodium Chloride (0.9 % Sodium Chloride Flush 3 Ml Syringe) 3 ml IVFLUSH QSHIFT [facility] Last Admin: 08/18/22 09:22 Dose: Not Given Documented By: WINSOME Non-Admin Reason: Duplicate Order Microbiology Microbiology Results: Microbiology 08/15/22 22:30 Urine Culture - Final Urine clean catch - Urine garcía top Assessment and Plan (1) Encephalopathy: Status: Acute Plan On 08/15/2022, patient found unresponsive at 06:35 (last known well time 202908/14/2022 ). CT of head negative for acute bleed is; not a candidate for tPA at this time. Patient has a history of altered behavior secondary to UTIs in the past. At this point, patient will be admitted to telemetry under the hospitalist service and we will continue the workup. At the time of transfer, she is hemodynamically stable however unresponsive 1.Encephalopathy - on the day of admission, patient's medical status suddenly became back to baseline. No antibiotics were given - has been hemodynamically stable without behavioral issues - transfer to [facility] psych Time Spent With Patient Time: Total time managing care of this patient today ____ minutes. Quality Stroke Does the patient have a stroke diagnosis?: No VTE Prior VTE?: No VTE Risk Level:: Medical - moderate - high VTE Device Contraindication: N/A - Device Ordered VTE Drug Contraindication: Treatment Not Indicated
[2022-08-18 11:50] VITALS: BP 176/73; PULSE 91; RESP 12; TEMP 37.2; O2SAT 93
== END 2022-08-18 12:10 | DRG 72 ==
PROVIDERS: Admitting Provider Hospitalist; Visit Provider Hospitalist
DX: G93.40 Encephalopathy, unspecified (principal); K21.9 Gastro-esophageal reflux disease without esophagitis; F03.90 Unspecified dementia, unspecified severity, without behavioral disturbance, psychotic disturbance, mood disturbance, and anxiety; I10 Essential (primary) hypertension; Z87.891 Personal history of nicotine dependence; Z88.0 Allergy status to penicillin; Z88.8 Allergy status to other drugs, medicaments and biological substances; Z79.899 Other long term (current) drug therapy
CPT/HCPCS: 71045; 81001; 82947; 87086; 97161; J0696

== ENCOUNTER 2022-08-18 12:11 | Inpatient (IN) | payer MEDICARE, BC, SELFPAY ==
--- NOTE | ~2022-08-18 | CT_ITS ---
EXAMINATION: CT ANGIOGRAM OF THE CHEST WITH AND WITHOUT CONTRAST (CT PULMONARY ANGIOGRAM FOR PE) CLINICAL INFORMATION: Reason for Exam hypoxia, syncope COMPARISON: None TECHNIQUE: Prior to contrast administration, noncontrast localization images were obtained. Subsequently, multidetector volumetric imaging was performed from the thoracic inlet to below the diaphragms following the administration of 80 mL Omnipaque 350 intravenous contrast. No contrast reaction reported Sagittal, coronal, and MIP oblique sagittal reformatted images were obtained on the CT workstation, uploaded to PACS, and reviewed. This CT examination was performed using dose optimization techniques as appropriate, variously including the following: *Automated exposure control *Adjustment of mA and/or kV according to patient size (this includes techniques or standardized protocols for targeted exams where dose is matched to indication/reason for exam; i.e. extremities or head) *Use of iterative reconstruction technique Total exam dose-length product 1158 mGy-cm FINDINGS: QUALITY OF STUDY/CONTRAST BOLUS: Satisfactory. PULMONARY ARTERIES: There are multiple filling defects present in the pulmonary arteries, including the right main pulmonary artery, segmental vessels to the right upper lobe, right middle and lower lobes. Suspected filling defects in the right subsegmental vessels as well. There are filling defects in the left main pulmonary artery, segmental vessels to the lingula, left lower lobe. Findings are compatible with pulmonary emboli. THORACIC AORTA: No aneurysm or dissection. LUNG: Multifocal airspace opacities in the left upper lobe, lingula, lower lobes. Multifocal patchy airspace opacities in the right hemithorax to a lesser degree. There is nodular configuration to some of the opacities. PLEURA: No pleural effusion or pneumothorax. MEDIASTINUM: Heart is enlarged. No pericardial effusion. No hilar or mediastinal lymphadenopathy. No evidence of septal bowing or right heart strain. CORONARY ARTERY CALCIFICATION: Coronary artery calcific lesion present. CHEST WALL/AXILLA: No axillary or internal mammary lymphadenopathy. There is asymmetric appearing tissue in the left breast. Example axial image 11:26-32 OSSEOUS STRUCTURES: No acute or suspicious osseous abnormality. Multilevel degeneration in the visualized spine. UPPER ABDOMEN: Unremarkable. No reflux of contrast into the hepatic veins to suggest elevated right heart pressures. CT/CT angio chest PE protocol IMPRESSION: 1. Multiple filling defects in bilateral central and peripheral pulmonary arterial vasculature compatible with pulmonary embolism. 2. Multifocal airspace opacities in bilateral lungs, more prominent on the left. This could reflect sequela of the pulmonary embolism, infectious/inflammatory process. Recommend follow-up imaging to ensure resolution. 3. Asymmetric appearing tissue in the left breast, clinically correlate. Further evaluation/imaging as clinically warranted. 4. Cardiomegaly. VTE: positive This critical result was discussed with Dr. Jackson at 11:30 AM on 09/01/2022 and it was ascertained that the content and urgency of the report was understood at the time of direct communication.
--- NOTE | ~2022-08-18 | XR_ITS ---
EXAMINATION: XR CHEST CLINICAL INFORMATION: Reason for Exam dyspnea COMPARISON: Chest radiograph 08/23/2022 TECHNIQUE: 2 views of the chest FINDINGS: Patchy multifocal left parenchymal airspace opacities suspicious for multifocal infection or aspiration, alternatively asymmetric edema. No pneumothorax or pleural effusion. Normal cardiomediastinal silhouette. XR/XR chest 2V IMPRESSION: Patchy multifocal left parenchymal airspace opacities suspicious for multifocal infection or aspiration, alternatively asymmetric edema. Recommend follow-up radiographs to ensure resolution.
--- NOTE | ~2022-08-18 | XR_ITS ---
EXAMINATION: XR CHEST CLINICAL INFORMATION: Evaluate for pneumonia COMPARISON: Chest x-ray on 07/15/2022 TECHNIQUE: 2 views of the chest were obtained. FINDINGS: The cardiac silhouette is normal. There is mild diffuse bronchial wall thickening. There are no areas of consolidation. There are no pleural effusions or pneumothoraces. The bones and soft tissues are unremarkable for the patient's age. XR/XR chest 2V IMPRESSION: Bronchial wall thickening may be infectious and/or inflammatory in etiology.
--- NOTE | ~2022-08-18 | CT_ITS ---
EXAMINATION: CT HEAD WITHOUT CONTRAST CLINICAL INFORMATION: Syncope COMPARISON: None TECHNIQUE: Contiguous axial imaging was performed from the skull base to vertex without intravenous administration of contrast. This CT examination was performed using dose optimization techniques as appropriate, variously including the following: *Automated exposure control *Adjustment of mA and/or kV according to patient size (this includes techniques or standardized protocols for targeted exams where dose is matched to indication/reason for exam; i.e. extremities or head) *Use of iterative reconstruction technique DLP: 1158 mGy-cm FINDINGS: There is no evidence of acute intracranial hemorrhage or territorial infarction. No abnormal mass effect or midline shift is seen. [place] to white matter differentiation is well preserved. No extra-axial fluid collections are identified. The ventricles are normal in size. Mild patchy deep white matter hypodensities suggesting chronic microangiopathic changes.. No acute calvarial fracture.. Paranasal sinuses and mastoid air cells are well-aerated. CT/CT head/brain wo IV con IMPRESSION: No CT evidence of acute intracranial hemorrhage or edematous territorial infarction.
--- NOTE | 2022-08-18 12:13 | P.HPPS_ITS ---
HPI Chief Complaint: encephalopathy HPI Past Psychiatric History: She had several visits to the emergency room for visual hallucinations in the context of UTI, 2 years ago she was nearly admitted at psychiatric geriatric unit. [facility] Medical History Acid reflux HTN (hypertension) Family History: Denies Social History: The patient is the 4th of 6 children, her milestones were achieved at expected age she was raised with her purse and she had a very good childhood. She attended school until 11th grade, she had at the age of 30 and she has 2 children who were close to her. At this moment, she lives in a mobile home by herself with some supports that is very limited. Adult protective services is involved in her care Trauma History: Denies Meds/Allergies Meds Home Medications Medication Instructions Recorded Confirmed Type omeprazole magnesium 20 mg 20 mg PO DAILY 08/07/22 08/15/22 History tablet,delayed release (Prilosec OTC) Allergies Allergies Allergy/AdvReac Type Severity Reaction Status Date / Time No Known Allergies Allergy Verified 02/27/21 17:35 Assessment & Plan Statement Statement: I have reviewed the history and physical and performed a pertinent examination on my patient. No changes have occurred unless specified. If the History and Physical was not performed prior to admission, the Hospitalist's service will be consulted for completing the admission physical. Time Spent With Patient Time: Total time managing care of this patient today ____ minutes.
[2022-08-18 13:10] VITALS: BMI 30.1
--- NOTE | 2022-08-18 14:14 | PC.ADMIT ---
pt is an 87 year old female who presented to [facility] with VH of seeing people in her home. pt was on IMC before admission due to being unresponsive in bed. during admission, pt reports that she doesn't want to sign any papers because her isn't there. it is unclear if she has a . pt let staff take vitals, change her clothes and give her a snack without any issue. pt is ao x3, but reports that she going home on friday. pt signed a CV and completed her menu.
[2022-08-18 14:22] VITALS: BP 136/78; PULSE 81; TEMP 36.6; O2SAT 98
[2022-08-18 17:36] LABS: COVID-19 Test Positive (Negative); IDNOW Serial# 55D5AD1C
--- NOTE | 2022-08-18 17:38 | PC.NURSE ---
Pt refused supper, did not want to come out of room. Reported sore throat, not feeling well. Frequent non-productive cough noted, Dr Merritt notified. COVID test ordered, sample sent to pharmacy. Temp 101.8 temporal, 100.1 orally. COVID results positive.
[2022-08-18 18:00] VITALS: BP 154/70; PULSE 79; RESP 18; TEMP 37.3; O2SAT 92
--- NOTE | 2022-08-18 18:01 | HO.PSYADMNOT ---
HPI Date of Service: 08/18/22 Chief Complaint: depression HPI Narrative: pt was admitted 08/06 for psychotic Sx. 08/15 she was found unresponsive and transferred to medicine for evaluation. she was subsequently medically evaluated and stabilized and transferred back to [facility] 08/18 for continued psychiatric management. see below for relevant summaries: per 08/15 DC summary for 08/06 admission to [facility]: The patient is an elderly female with a prior history of dementia who was admitted into the hospital since she has psychotic symptoms such as visual hallucinations, historically in clear correlations with UTI but this time there were no medical symptoms.? Please see the HPI for further details.? The patient was started on Zyprexa titrated up to 5 mg p.o. q.h.s. with for improvement of her symptoms.? While she was in the unit, today in the parts clerk, she was unresponsive and Medicine was called.? She will be transferred to [facility] [place] treatment and follow up on workout. 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 According to the crisis assessment, the patient had a similar episode for the last 2 years with visual hallucinations stating there are people in her room.? Adult protective Services has been involved and in this location, the patient complained of visual hallucinations she was very paranoid and scared.? All his previous visual hallucinations were in clear correlation to UTI.? She was admitted to the emergency room of [facility] hospital had a very extensive medical workout with no evidence of UTI.? Since the patient had a sporadic visual hallucinations and disorganized thought process she was deemed inpatient level of care and transferring to this facility for psychiatric stabilization.? Admitted to [facility] 08/07/22 without acute medical issues.? On 08/15/2022, patient found unresponsive at 06:35 (last known well time? 202908/14/[address] of head negative for acute bleed is; not a candidate for tPA at this time.? Patient has a history of altered behavior secondary to UTIs in the past.? At this point, patient will be admitted to telemetry under the hospitalist service and we will continue the workup.? At the time of transfer, she is hemodynamically stable however unresponsive. Staff did not note any seizure activity this a.m. admitted to telemetry.? Workup including CT of the head labs blood cultures failed to demonstrate an acute pathology for her presentation.? Urine had active sediment upon admission and she was treated empirically with ceftriaxone.? The afternoon of admission, prior to administration of antibiotic, the patient return to her baseline and was alert pleasant and cooperative.? She has no recollection of the event.? During her hospital stay she did not demonstrate any seizure activity.? At this point time she is medically acceptable for transfer back to [facility].? This is discussed with Dr. Allison Past Psychiatric History: She had several visits to the emergency room for visual hallucinations in the context of UTI, 2 years ago she was nearly admitted at psychiatric geriatric unit. Medical Evaluation Reviewed: Yes [facility] Medical History (Updated 08/18/22 @ 18:04 by Rober Merritt) Acid reflux HTN (hypertension) Family History: Denies Social History: The patient is the 4th of 6 children, her milestones were achieved at expected age she was raised with her purse and she had a very good childhood. She attended school until 11th grade, she had at the age of 30 and she has 2 children who were close to her. At this moment, she lives in a mobile home by herself with some supports that is very limited. Adult protective services is involved in her care Substance History: N/A Trauma History: Denies Diagnostics Vital Signs (24Hr): Vital Signs - 24 hr 08/18/22 14:22 Temperature 98 F Pulse Rate 81 Blood Pressure 136/78 Pulse Oximetry 98 Oxygen Delivery Method Room Air BMI result Body Mass Index 30.1 Labs Labs: Laboratory Results - last 48 hr 08/18/22 17:12 COVID-19 ([facility]) Positive A COVID-19 Clin Com See Note Meds/Allergies Meds Home Medications Medication Instructions Recorded Confirmed Type omeprazole magnesium 20 mg 20 mg PO DAILY 08/07/22 08/18/22 History tablet,delayed release (Prilosec OTC) Allergies Allergies Allergy/AdvReac Type Severity Reaction Status Date / Time amoxicillin AdvReac Hives Verified 08/18/22 15:48 cefpodoxime [From Vantin] AdvReac Hives Verified 08/18/22 15:48 erythromycin base AdvReac Unknown Verified 08/18/22 15:48 Mental Status Exam Mental Status Exam Narrative: in medical bed crying saying she wants to go home, generally difficult to calm patient and conduct normal MSE. i can't take it, i need a break! denies SI, states her mood as tired. Assessment & Plan Assessment & Plan (1) Dementia with mood disturbance: Status: Acute Code(s): F03.93 - Unspecified dementia, unspecified severity, with mood disturbance Plan admit to [facility] COVID positive - isolation and precautions. consult hospitalist for mgmt recommendations. continue medications from medical floor otherwise. Patient educated on: diagnosis Reason for continued inpatient stay Substantial Risk for: inability to function Statement Statement: I have reviewed the history and physical and performed a pertinent examination on my patient. No changes have occurred unless specified. If the History and Physical was not performed prior to admission, the Hospitalist's service will be consulted for completing the admission physical. Time Spent With Patient Time: Total time managing care of this patient today _55___ minutes.
[2022-08-18] MEDS: Donepezil HCl 10 MG TABLET PO (21:38)
[2022-08-18] MEDS: OLANZapine 5 MG TABLET PO (21:38)
[2022-08-18] MEDS: lisinopriL 10 MG TABLET PO (21:39)
[2022-08-19] MEDS: Acetaminophen 325 MG TABLET 650 MG PO ×2 (03:54→21:39)
[2022-08-19 04:05] VITALS: RESP 20; TEMP 37.8
[2022-08-19 09:35] VITALS: BP 139/62; PULSE 107; RESP 20; TEMP 37.3; O2SAT 93
[2022-08-19] MEDS: Omeprazole 20 MG CAPSULE.DR PO (09:40)
[2022-08-19] MEDS: amLODIPine Besylate 10 MG TABLET PO (09:40)
--- NOTE | 2022-08-19 11:52 | HO.PSYCHPN ---
Subjective Subjective Date of Service: 08/19/22 Reason For Visit: depression Subjective Notes: Section 12B Interim History: The nursing staff reported the patient slept 7 hours, she reported sore throat thinking but positive to COVID 19. She had been fully compliant with treatment and she reports poor at bedside. She is also receiving antibiotics for UTI. On interview the patient denies new symptoms she was to be discharged as soon as possible. She looks slightly confused but redirectable. Mental Status Exam Mental Status Exam Patient Appearance: Appropriate Patient Orientation: Person and Situation Level of Consciousness: Awake and Appropriate Patient Behavior: Guarded and Passive Mood Description: Withdrawn Affect Description: Constricted Patient Cognition Impaired: Yes Ability to Follow Directions: Good Speech Pattern: Clear Hallucinations: None Delusions: Not Present Thought Process: Linear Thought Content: positive for Circumstantial Judgement: Fair Diagnostics Vital Signs (24Hr): Vital Signs - 24 hr 08/18/22 14:22 08/18/22 18:00 08/19/22 04:05 Temperature 98 F 99.2 F 100.1 F Pulse Rate 81 79 Respiratory Rate 18 20 Blood Pressure 136/78 154/70 H Pulse Oximetry 98 92 Oxygen Delivery Method Room Air Room Air 08/19/22 09:35 Temperature 99.2 F Pulse Rate 107 H Respiratory Rate 20 Blood Pressure 139/62 Pulse Oximetry 93 Oxygen Delivery Method Room Air BMI result Body Mass Index 30.1 Labs Labs: Laboratory Results - last 48 hr 08/18/22 17:12 COVID-19 ([facility]) Positive A COVID-19 Clin Com See Note Medications Medications Current Medications Acetaminophen (Acetaminophen 325 Mg Tablet) 650 mg PO Q6H PRN PRN Reason: Headache/Pain Mild Scale (1-3) Last Admin: 08/19/22 03:54 Dose: 650 mg Al Hydroxide/Mg Hydroxide (Magnesium Hydrox/Alum Hydrox 30 Ml Oral.Susp) 30 ml PO Q6H PRN PRN Reason: Heartburn/Nausea Amlodipine Besylate (Amlodipine Besylate 10 Mg Tablet) 10 mg PO DAILY [facility]; Protocol Last Admin: 08/19/22 09:40 Dose: 10 mg Cefuroxime Axetil (Cefuroxime Axetil 500 Mg Tablet) 500 mg PO BID [facility] Last Admin: 08/19/22 09:40 Dose: 500 mg Donepezil HCl (Donepezil Hcl 10 Mg Tablet) 10 mg PO BEDTIME [facility] Last Admin: 08/18/22 21:38 Dose: 10 mg Lisinopril (Lisinopril 10 Mg Tablet) 10 mg PO BEDTIME [facility]; Protocol Last Admin: 08/18/22 21:39 Dose: 10 mg Magnesium Hydroxide (Milk Of Magnesia 30 Ml Oral.Susp) 30 ml PO DAILY PRN PRN Reason: Constipation Olanzapine (Olanzapine 5 Mg Tablet) 5 mg PO BEDTIME [facility] Last Admin: 08/18/22 21:38 Dose: 5 mg Omeprazole (Omeprazole 20 Mg Capsule.Dr) 20 mg PO DAILY [facility] Last Admin: 08/19/22 09:40 Dose: 20 mg Trazodone HCl (Trazodone Hcl 50 Mg Tablet) 50 mg PO BEDTIME MRX1 PRN PRN Reason: Insomnia Allergies Allergies Allergy/AdvReac Type Severity Reaction Status Date / Time amoxicillin AdvReac Hives Verified 08/18/22 15:48 cefpodoxime [From Vantin] AdvReac Hives Verified 08/18/22 15:48 erythromycin base AdvReac Unknown Verified 08/18/22 15:48 Assessment & Plan Assessment & Plan (1) Dementia with mood disturbance: Status: Acute Code(s): F03.93 - Unspecified dementia, unspecified severity, with mood disturbance Plan admit to [facility] COVID positive - isolation and precautions. consult hospitalist for mgmt recommendations. continue medications from medical floor otherwise. We will start working on discharge planning Reason for contiued inpatient stay Substantial Risk for: inability to function, rapid decompensation and med/psych decompensation Time Spent With Patient Time: Total time managing care of this patient today __20__ minutes.
[2022-08-19 16:30] VITALS: BP 136/61; PULSE 107; RESP 20; TEMP 38.2; O2SAT 94
[2022-08-19 18:00] VITALS: BP 128/62; PULSE 112; RESP 20; TEMP 39.3; O2SAT 92
--- NOTE | 2022-08-19 19:05 | PC.NURSE ---
Isolative to room due to COVID dx. Intermittent productive cough noted-clear yellow mucous. Reported slight sore throat, refused Cepacol lozenge/Robitussin offered. VS temp 99.2 p 107 bp 139/62 02 sat 93% rm air. VS temp 100.7 p 107 136/61 O2 sat 94% rm air at 1630. No s/sx respiratory distress. Refused Tylenol offered for temp. Suspicious of Tylenol tablets. Put pills in mouth and then coughed them up. Held them in hands then placed them on bed. Stated she would handle sore throat, cough, temp without taking meds. Stated she could manage with fluids. Intake adequate, taking fluids well.
[2022-08-19] MEDS: lisinopriL 10 MG TABLET PO (21:35)
[2022-08-19] MEDS: Donepezil HCl 10 MG TABLET PO (21:37)
[2022-08-19] MEDS: OLANZapine 5 MG TABLET PO (21:37)
[2022-08-20 07:30] VITALS: BP 130/80; PULSE 65; RESP 16; TEMP 36.6; O2SAT 92
--- NOTE | 2022-08-20 12:30 | P.PNPSI_ITS ---
Subjective Subjective Date of Service: 08/20/22 Reason For Visit: depression Subjective Notes: Conditional Voluntary Interim History: The nursing staff reported the patient has some signs of COVID-19 such as productive cough and a low grade fever last night. Her saturations 92% on room air. The social services designee contact her son and apparently the condition of her trailer home is worse that he initially was assessed. The patient has refused Elder Care Services. On interview the patient denies active suicidal or homicidal ideation no evidence of psychosis at this moment. Mental Status Exam Mental Status Exam Patient Appearance: Well Grooomed and Appropriate Patient Orientation: Person and Situation Level of Consciousness: Awake and Appropriate Patient Behavior: Guarded and Passive Mood Description: Withdrawn Affect Description: Constricted Patient Cognition Impaired: Yes Ability to Follow Directions: Good Speech Pattern: Clear Hallucinations: None Delusions: Not Present Thought Process: Distracted and Evasive Thought Content: positive for [place] and positive for Circumstantial Judgement: Fair Diagnostics Vital Signs (24Hr): Vital Signs - 24 hr 08/19/22 16:30 08/19/22 18:00 Temperature 100.7 F H 102.7 F H Pulse Rate 107 H 112 H Respiratory Rate 20 20 Blood Pressure 136/61 128/62 Pulse Oximetry 94 92 Oxygen Delivery Method Room Air Room Air BMI result Body Mass Index 30.1 Labs Labs: Laboratory Results - last 48 hr 08/18/22 17:12 COVID-19 ([facility]) Positive A COVID-19 Clin Com See Note Medications Medications Current Medications Acetaminophen (Acetaminophen 325 Mg Tablet) 650 mg PO Q6H PRN PRN Reason: Headache/Pain Mild Scale (1-3) Last Admin: 08/19/22 21:39 Dose: 650 mg Al Hydroxide/Mg Hydroxide (Magnesium Hydrox/Alum Hydrox 30 Ml Oral.Susp) 30 ml PO Q6H PRN PRN Reason: Heartburn/Nausea Amlodipine Besylate (Amlodipine Besylate 10 Mg Tablet) 10 mg PO DAILY [facility]; Protocol Last Admin: 08/19/22 09:40 Dose: 10 mg Benzocaine (Throat Lozenge, Medicated Lozenge) 1 lozenge MUCOUS MEM Q2H PRN PRN Reason: Sore Throat Cefuroxime Axetil (Cefuroxime Axetil 500 Mg Tablet) [address] [facility] Last Admin: 08/19/22 21:35 Dose: 500 mg Donepezil HCl (Donepezil Hcl 10 Mg Tablet) 10 mg PO BEDTIME [facility] Last Admin: 08/19/22 21:37 Dose: 10 mg Lisinopril (Lisinopril 10 Mg Tablet) 10 mg PO BEDTIME [facility]; Protocol Last Admin: 08/19/22 21:35 Dose: 10 mg Magnesium Hydroxide (Milk Of Magnesia 30 Ml Oral.Susp) 30 ml PO DAILY PRN PRN Reason: Constipation Olanzapine (Olanzapine 5 Mg Tablet) 5 mg PO BEDTIME [facility] Last Admin: 08/19/22 21:37 Dose: 5 mg Omeprazole (Omeprazole 20 Mg Capsule.Dr) 20 mg PO DAILY [facility] Last Admin: 08/19/22 09:40 Dose: 20 mg Trazodone HCl (Trazodone Hcl 50 Mg Tablet) 50 mg PO BEDTIME MRX1 PRN PRN Reason: Insomnia Allergies Allergies Allergy/AdvReac Type Severity Reaction Status Date / Time amoxicillin AdvReac Hives Verified 08/18/22 15:48 cefpodoxime [From Vantin] AdvReac Hives Verified 08/18/22 15:48 erythromycin base AdvReac Unknown Verified 08/18/22 15:48 Assessment & Plan Assessment & Plan (1) Dementia with mood disturbance: Status: Acute Code(s): F03.93 - Unspecified dementia, unspecified severity, with mood disturbance Plan admit to [facility] COVID positive - isolation and precautions. consult hospitalist for mgmt recommendations. continue medications from medical floor otherwise. We will start working on discharge planning Reason for contiued inpatient stay Substantial Risk for: inability to function, rapid decompensation and med/psych decompensation Time Spent With Patient Time: Total time managing care of this patient today _20___ minutes.
[2022-08-20 18:00] VITALS: BP 153/71; PULSE 100; RESP 17; TEMP 37.3; O2SAT 93
[2022-08-20] MEDS: lisinopriL 10 MG TABLET PO (21:04)
[2022-08-20] MEDS: Donepezil HCl 10 MG TABLET PO (21:05)
[2022-08-20] MEDS: OLANZapine 5 MG TABLET PO (21:05)
[2022-08-21 06:00] VITALS: BP 133/84; PULSE 107; RESP 18; TEMP 36.8; O2SAT 93
[2022-08-21] MEDS: Omeprazole 20 MG CAPSULE.DR PO (10:30)
[2022-08-21] MEDS: amLODIPine Besylate 10 MG TABLET PO (10:30)
--- NOTE | 2022-08-21 12:24 | HO.PSYCHPN ---
Subjective Subjective Date of Service: 08/21/22 Reason For Visit: depression Subjective Notes: Conditional Voluntary Interim History: The nursing staff reported the patient had complained of [place] out called source and she has pain while eating. The dialysis social worker contact her son and he believes that she is still experimented with auditory hallucinations but not verbalizing it. On interview the patient denies new symptoms, still with some COVID-19 symptoms but stable. I informed her that I added a mouthwash to help her with the pain on her cold sores. Mental Status Exam Mental Status Exam Patient Appearance: Appropriate Patient Orientation: Person and Situation Level of Consciousness: Awake and Appropriate Patient Behavior: Guarded and Passive Mood Description: Constricted Affect Description: Calm Patient Cognition Impaired: Yes Ability to Follow Directions: Good Speech Pattern: Clear Hallucinations: None Delusions: Not Present Thought Process: Linear Thought Content: positive for [place] and positive for Goal Oriented Judgement: Fair Diagnostics Vital Signs (24Hr): Vital Signs - 24 hr 08/20/22 18:00 08/21/22 06:00 Temperature 99.1 F 98.3 F Pulse Rate 100 107 H Respiratory Rate 17 18 Blood Pressure 153/71 H 133/84 Pulse Oximetry 93 93 Oxygen Delivery Method Room Air Room Air BMI result Body Mass Index 30.1 Medications Medications Current Medications Acetaminophen (Acetaminophen 325 Mg Tablet) 650 mg PO Q6H PRN PRN Reason: Headache/Pain Mild Scale (1-3) Last Admin: 08/19/22 21:39 Dose: 650 mg Al Hydroxide/Mg Hydroxide (Magnesium Hydrox/Alum Hydrox 30 Ml Oral.Susp) 30 ml PO Q6H PRN PRN Reason: Heartburn/Nausea Amlodipine Besylate (Amlodipine Besylate 10 Mg Tablet) 10 mg PO DAILY [facility]; Protocol Last Admin: 08/21/22 10:30 Dose: 10 mg Benzocaine (Throat Lozenge, Medicated Lozenge) 1 lozenge MUCOUS MEM Q2H PRN PRN Reason: Sore Throat Cefuroxime Axetil (Cefuroxime Axetil 500 Mg Tablet) 500 mg PO BID [facility] Last Admin: 08/21/22 10:30 Dose: 500 mg Donepezil HCl (Donepezil Hcl 10 Mg Tablet) 10 mg PO BEDTIME [facility] Last Admin: 08/20/22 21:05 Dose: 10 mg Lidocaine/Diphenhydr/Alum/Mg/Simeth (Mag&Al/Sim/Diphenhyd/Lidocaine 10 Ml Oral.Susp) 10 ml PO Q4H PRN; Protocol PRN Reason: mouth sores pain Lisinopril (Lisinopril 10 Mg Tablet) 10 mg PO BEDTIME [facility]; Protocol Last Admin: 08/20/22 21:04 Dose: 10 mg Magnesium Hydroxide (Milk Of Magnesia 30 Ml Oral.Susp) 30 ml PO DAILY PRN PRN Reason: Constipation Olanzapine (Olanzapine 5 Mg Tablet) 5 mg PO BEDTIME [facility] Last Admin: 08/20/22 21:05 Dose: 5 mg Omeprazole (Omeprazole 20 Mg Capsule.Dr) 20 mg PO DAILY [facility] Last Admin: 08/21/22 10:30 Dose: 20 mg Trazodone HCl (Trazodone Hcl 50 Mg Tablet) 50 mg PO BEDTIME MRX1 PRN PRN Reason: Insomnia Allergies Allergies Allergy/AdvReac Type Severity Reaction Status Date / Time amoxicillin AdvReac Hives Verified 08/18/22 15:48 cefpodoxime [From Vantin] AdvReac Hives Verified 08/18/22 15:48 erythromycin base AdvReac Unknown Verified 08/18/22 15:48 Assessment & Plan Assessment & Plan (1) Dementia with mood disturbance: Status: Acute Code(s): F03.93 - Unspecified dementia, unspecified severity, with mood disturbance Plan admit to [facility] COVID positive - isolation and precautions. consult hospitalist for mgmt recommendations. continue medications from medical floor otherwise. We will start working on discharge planning Reason for contiued inpatient stay Substantial Risk for: inability to function, rapid decompensation and med/psych decompensation Time Spent With Patient Time: Total time managing care of this patient today __20__ minutes.
[2022-08-21 18:00] VITALS: BP 136/63; PULSE 115; RESP 18; TEMP 36.9; O2SAT 93
[2022-08-21] MEDS: Donepezil HCl 10 MG TABLET PO (20:25)
[2022-08-21] MEDS: OLANZapine 5 MG TABLET PO (20:25)
[2022-08-21] MEDS: lisinopriL 10 MG TABLET PO (20:25)
[2022-08-22 07:00] VITALS: BMI 30.8
[2022-08-22 09:40] VITALS: BP 150/72; PULSE 108; RESP 18; TEMP 37.7; O2SAT 92
[2022-08-22] MEDS: Omeprazole 20 MG CAPSULE.DR PO (09:58)
[2022-08-22] MEDS: amLODIPine Besylate 10 MG TABLET PO (09:58)
--- NOTE | 2022-08-22 11:20 | PC.NURSE ---
Pt. with temp 100 TA. Declines acetaminophen. Denies shivering. aware.
--- NOTE | 2022-08-22 17:12 | HO.PSYCHPN ---
Subjective Subjective Date of Service: 08/22/22 Reason For Visit: depression Subjective Notes: Conditional Voluntary Interim History: The nursing staff reported that she still looks sick, she had been in her room most of the time. She received antibiotics for UTI. The social media editor reported that her son still working on her treaters home, protective Services are involved. Today in the afternoon, the nursing staff reported the patient has had with fever and she was cooperative and delirious. I ordered a hospitalist consult and blood work. On interview the patient looks pleasantly confused. Mental Status Exam Mental Status Exam Patient Appearance: Well Grooomed and Appropriate Patient Orientation: Person Level of Consciousness: Awake and Appropriate Patient Behavior: Guarded and Passive Mood Description: Withdrawn Affect Description: Constricted Patient Cognition Impaired: Yes Ability to Follow Directions: Good Speech Pattern: Clear Hallucinations: None Delusions: Not Present Thought Process: Illogical, Distracted and Slowed Thinking Thought Content: positive for [place] and positive for Circumstantial Judgement: Fair Diagnostics Vital Signs (24Hr): Vital Signs - 24 hr 08/21/22 18:00 08/22/22 09:40 Temperature 98.4 F 100 F Pulse Rate 115 H 108 H Respiratory Rate 18 18 Blood Pressure 136/63 150/72 H Pulse Oximetry 93 92 Oxygen Delivery Method Room Air Room Air BMI result Body Mass Index 30.8 Medications Medications Current Medications Acetaminophen (Acetaminophen 325 Mg Tablet) 650 mg PO Q6H PRN PRN Reason: Headache/Pain Mild Scale (1-3) Last Admin: 08/19/22 21:39 Dose: 650 mg Al Hydroxide/Mg Hydroxide (Magnesium Hydrox/Alum Hydrox 30 Ml Oral.Susp) 30 ml PO Q6H PRN PRN Reason: Heartburn/Nausea Amlodipine Besylate (Amlodipine Besylate 10 Mg Tablet) 10 mg PO DAILY [facility]; Protocol Last Admin: 08/22/22 09:58 Dose: 10 mg Benzocaine (Throat Lozenge, Medicated Lozenge) 1 lozenge MUCOUS MEM Q2H PRN PRN Reason: Sore Throat Cefuroxime Axetil (Cefuroxime Axetil 500 Mg Tablet) 500 mg PO BID [facility] Last Admin: 08/22/22 09:58 Dose: 500 mg Donepezil HCl (Donepezil Hcl 10 Mg Tablet) 10 mg PO BEDTIME [facility] Last Admin: 08/21/22 20:25 Dose: 10 mg Lidocaine/Diphenhydr/Alum/Mg/Simeth (Mag&Al/Sim/Diphenhyd/Lidocaine 10 Ml Oral.Susp) 10 ml PO Q4H PRN; Protocol PRN Reason: mouth sores pain Lisinopril (Lisinopril 10 Mg Tablet) 10 mg PO BEDTIME [facility]; Protocol Last Admin: 08/21/22 20:25 Dose: 10 mg Magnesium Hydroxide (Milk Of Magnesia 30 Ml Oral.Susp) 30 ml PO DAILY PRN PRN Reason: Constipation Olanzapine (Olanzapine 5 Mg Tablet) 5 mg PO BEDTIME [facility] Last Admin: 08/21/22 20:25 Dose: 5 mg Omeprazole (Omeprazole 20 Mg Capsule.Dr) 20 mg PO DAILY [facility] Last Admin: 08/22/22 09:58 Dose: 20 mg Trazodone HCl (Trazodone Hcl 50 Mg Tablet) 50 mg PO BEDTIME MRX1 PRN PRN Reason: Insomnia Allergies Allergies Allergy/AdvReac Type Severity Reaction Status Date / Time amoxicillin AdvReac Hives Verified 08/18/22 15:48 cefpodoxime [From Vantin] AdvReac Hives Verified 08/18/22 15:48 erythromycin base AdvReac Unknown Verified 08/18/22 15:48 Assessment & Plan Assessment & Plan (1) Dementia with mood disturbance: Status: Acute Code(s): F03.93 - Unspecified dementia, unspecified severity, with mood disturbance Plan The patient is an elderly female who lives alone in a trailer home admitted for exacerbation of paranoia and auditory hallucinations in the context of UTIs. She was been fully workout, heart she was in the unit she was transferred to Medicine since there was entered mental status. She was started on antibiotics for UTI. Later on, she contracted COVID and her since arm has worsened. Plan 1. Hospitalist consult. 2. CBC with differential BMP and other labs. 3. Continue with regular medications. Reason for contiued inpatient stay Substantial Risk for: inability to function, rapid decompensation and med/psych decompensation Time Spent With Patient Time: Total time managing care of this patient today _20___ minutes.
[2022-08-22 18:00] VITALS: BP 128/61; PULSE 106; RESP 17; TEMP 37.6; O2SAT 92
[2022-08-22 18:05] LABS: Anion Gap 14 (12-20); Blood Urea Nitrogen 31 mg/dL (9-16); Calcium 8.6 mg/dL (8.4-10.2); Carbon Dioxide 25 mmol/L (22-29); Chloride 104 mmol/L (96-108); Creatinine Clr Calc Pharmacy 55.9; Estimated Glomerular Filt Rate > 60; Glucose Random 113 mg/dL (60-115); Potassium 4.2 mmol/L (3.3-5.1); Sodium 139 mmol/L (135-145)
--- NOTE | 2022-08-22 18:18 | P.CONHOSP_ITS ---
History of Present Illness Data of Consult Service Date: 08/22/22 Primary Care Provider: Unknown Physician HPI Reason for consult: Fever 104, COVID+ Patient is 87-year-old female referred from [facility] for visual hallucinations and disorganized thought process. Patient recently diagnosed with a UTI on 08/15/2022 and treated with cefuroxime in 20 mg b.i.d. Patient tested positive for COVID on 08/18/2022. Medical consult for high fever in the setting of COVID infection. Earlier today patient spiked fever of 104 and nurses noted patient to to be confused in both speaking (disorganized speech) and action (putting toothpaste on her lips). Patient initially refused Tylenol because she feared it would make my brain bleed, but eventually took one dose that brought her fever down to 100.0. Pt seen and evaluated in her room, resting comfortably on her bed. Pt capable of organized thought and speaking in full sentences without cough or labored breathing. Patient states she she has occasional dry cough, but cough much improved over the past 3 days. Also occasionally lightheaded with standing, has diminished taste, states possibly had a fever earlier today, but no longer feels feverish. Pt denies SOB at rest or with exertion. No chest pain/pressure, palpitations. No chills, nausea, vomiting, abdominal pain. Review of Systems Review of Systems: Occasional dry cough [place] feverish earlier today Patient denies shortness of breath No chills, N/V, abdominal pain Denies chest pain/pressure, palpitations Yes all other systems are reviewed and are negative [facility] Medical History (Updated 08/22/22 @ 18:35 by JACKSON Vera) Acid reflux HTN (hypertension) Social History Household Members: None Housing: Other Housing Other:: mobile home Do you presently have visiting nurse or other home services: No Patient Tobacco Use Status: Former Tobacco user Quit Date: 55 years ago Tobacco use type: Cigarette Smoked in Last 30 Days: No e-Cigarette/Vaping Use: Never Used Patient Interested in Nicotine Replacement: No (pt is not interested) Patient Given Instructions on How to Stop Smoking: No Second Hand Smoke Exposure: No Use of substances other than those prescribed or required for medical reasons: No Currently Displaying Signs/Symptoms of Drug Intoxication Withdrawal: No Have you been hit, kicked, punched, or otherwise hurt by someone within the past year? If so, by whom?: No Do you feel safe in your current relationship?: No Current Relationship Is there a partner from a previous relationship who is making you feel unsafe now?: No Are you made to feel afraid or neglected: No Advance Directives: No Advance Directives Information Provided: Yes Do you have thoughts of harming others: None Do you have a plan to hurt others: No Plan Recently lost weight without trying: No How much weight loss: Not applicable Eating poorly because of decreased appetite: No Nutrition screen score: 0 Nutrition Risks: No Nutritional Risk Patient : No : No Poor oral hygiene: No service: No Current occupational status: retired Sexual orientation: Straight/Heterosexual Meds Allergies Allergy/AdvReac Type Severity Reaction Status Date / Time amoxicillin AdvReac Hives Verified 08/18/22 15:48 cefpodoxime [From Vantin] AdvReac Hives Verified 08/18/22 15:48 erythromycin base AdvReac Unknown Verified 08/18/22 15:48 Active Medications: Current Medications Acetaminophen (Acetaminophen 325 Mg Tablet) 650 mg PO Q6H PRN PRN Reason: Headache/Pain Mild Scale (1-3) Last Admin: 08/19/22 21:39 Dose: 650 mg Al Hydroxide/Mg Hydroxide (Magnesium Hydrox/Alum Hydrox 30 Ml Oral.Susp) 30 ml PO Q6H PRN PRN Reason: Heartburn/Nausea Amlodipine Besylate (Amlodipine Besylate 10 Mg Tablet) 10 mg PO DAILY [facility]; Protocol Last Admin: 08/22/22 09:58 Dose: 10 mg Benzocaine (Throat Lozenge, Medicated Lozenge) 1 lozenge MUCOUS MEM Q2H PRN PRN Reason: Sore Throat Cefuroxime Axetil (Cefuroxime Axetil 500 Mg Tablet) 500 mg PO BID [facility] Last Admin: 08/22/22 09:58 Dose: 500 mg Donepezil HCl (Donepezil Hcl 10 Mg Tablet) 10 mg PO BEDTIME [facility] Last Admin: 08/21/22 20:25 Dose: 10 mg Lidocaine/Diphenhydr/Alum/Mg/Simeth (Mag&Al/Sim/Diphenhyd/Lidocaine 10 Ml Oral.Susp) 10 ml PO Q4H PRN; Protocol PRN Reason: mouth sores pain Lisinopril (Lisinopril 10 Mg Tablet) 10 mg PO BEDTIME [facility]; Protocol Last Admin: 08/21/22 20:25 Dose: 10 mg Magnesium Hydroxide (Milk Of Magnesia 30 Ml Oral.Susp) 30 ml PO DAILY PRN PRN Reason: Constipation Olanzapine (Olanzapine 5 Mg Tablet) 5 mg PO BEDTIME [facility] Last Admin: 08/21/22 20:25 Dose: 5 mg Omeprazole (Omeprazole 20 Mg Capsule.Dr) 20 mg PO DAILY [facility] Last Admin: 08/22/22 09:58 Dose: 20 mg Trazodone HCl (Trazodone Hcl 50 Mg Tablet) 50 mg PO BEDTIME MRX1 PRN PRN Reason: Insomnia Home Medications Medication Instructions Recorded Confirmed Last Taken Type omeprazole magnesium 20 mg 20 mg PO DAILY 08/07/22 08/18/22 08/14/22 History tablet,delayed release (Prilosec OTC) Physical Exam Vital Signs and Narrative: Vital Signs: Last Vital Signs Temp 100 F 08/22/22 09:40 Pulse 108 H 08/22/22 09:40 Resp 18 08/22/22 09:40 BP 150/72 H 08/22/22 09:40 Pulse Ox 92 08/22/22 09:40 O2 Del Method 08/22/22 09:40 BMI result Body Mass Index 30.8 General: AOx3, no acute distress, speaking in full sentences Resp: CTA bilaterally CVS: S1, S2, tachycardic GI: +BS, NT, no distention Skin: No rash Neuro: Cranial nerves II-XII grossly intact bilaterally. Motor grossly intact bilaterally Extremities: No edema Psych: Appropriate affect Results Labs 08/22/22 17:42 Labs: Laboratory Results - last 24 hr 08/22/22 17:42 Anion Gap 14 Estim Creat Clear Calc 55.9 Estimated GFR > 60 Random Glucose 113 Calcium 8.6 D Assessment and Plan (1) COVID: Status: Acute (2) Fever: Status: Acute Plan Patient is 87-year-old female referred from [facility] for visual hallucinations and disorganized thought process. Patient recently diagnosed with a UTI on 08/15/2022 and treated with cefuroxime in 20 mg b.i.d. Patient tested positive for COVID on 08/18/2022. Medical consult for high fever in the setting of COVID infection. Fever in the setting of COVID infection Patient spiked fever of 104 earlier today, now down to 100.0 after Tylenol Possibly secondary to COVID infection, ?pneumonia CBC CXR Blood cultures x2 CRP, calcitonin UTI Patient on cefuroxime day 5/ Continue cefuroxime The for allowing us to participate in the care of this patient. We will follow along at this time. Please let us know if there are any acute questions or concerns. Time Spent With Patient Time: Total time managing care of this patient today ____ minutes.
[2022-08-22 18:59] LABS: Procalcitonin 0.05 ng/mL
[2022-08-22 19:20] LABS: PLT CLUMP 1; Red Cell Distribution Width 12.6 % (11.0-16.0)
[2022-08-22 19:22] LABS: Hematocrit 32.6 % (37.0-47.0); Hemoglobin 10.8 g/dl (12.0-16.0); Mean Corpuscular HGB Conc 33.1 g/dl (31.0-35.0); Mean Corpuscular Hemoglobin 29.3 pg (27.0-33.0); Mean Corpuscular Volume 88.6 fL (80.0-98.0); Mean Platelet Volume 12.1 fL (9.4-12.3); Red Blood Count 3.68 X10*6/uL (4.20-5.50)
[2022-08-22 19:37] LABS: Platelet Count 121 X10*3/uL (160-400); White Blood Count 6.1 X10*3/uL (4.8-10.8)
[2022-08-22] MEDS: OLANZapine 5 MG TABLET PO (21:37)
[2022-08-22] MEDS: Donepezil HCl 10 MG TABLET PO (21:37)
[2022-08-22] MEDS: lisinopriL 10 MG TABLET PO (21:38)
[2022-08-23] MEDS: Acetaminophen 325 MG TABLET 650 MG PO (03:16)
[2022-08-23] MEDS: guaiFENesin DM 100/10/5 ML 5 ML SYRUP PO (03:58)
[2022-08-23 04:13] VITALS: TEMP 38.8
[2022-08-23 10:15] VITALS: BP 173/78; PULSE 103; RESP 20; TEMP 37.2; O2SAT 93
[2022-08-23] MEDS: amLODIPine Besylate 10 MG TABLET PO (10:59)
[2022-08-23] MEDS: Omeprazole 20 MG CAPSULE.DR PO (10:59)
--- NOTE | 2022-08-23 11:23 | HO.PSYCHPN ---
Subjective Subjective Date of Service: 08/23/22 Reason For Visit: depression Subjective Notes: Conditional Voluntary Interim History: Pt had temperature this morning at 4am of 102 F. Given tylenol. No signs of respiratory distressed. Not hypotensive. Pt denies any pain. Pt reports feeling very tired, make reference to I should have left some days ago. Unclear what she is referring to as not able to elaborate. She knows she is in the hospital but appears not to be oriented to situation. Medication Compliance: Yes Side effects from medications: No Attending Groups: No Review of Systems Review of Systems Occasional dry cough [place] feverish earlier today Patient denies shortness of breath No chills, N/V, abdominal pain Denies chest pain/pressure, palpitations Yes all other systems are reviewed and are negative Mental Status Exam Mental Status Exam Narrative: Alert, oriented to place, not situation. Pt wearing hospital gown, trying to cover self with incontinent pad, given blaket instead. She reports feeling very tired. No SI/HI. No overt psychosis or delusions. Speech is clear, regular rate, spontaneous. TP: some derailment. Insight/judgment: impaired x 2. Diagnostics Vital Signs (24Hr): Vital Signs - 24 hr 08/22/22 18:00 08/23/22 04:13 Temperature 99.6 F 102 F H Pulse Rate 106 H Respiratory Rate 17 Blood Pressure 128/61 Pulse Oximetry 92 Oxygen Delivery Method Room Air BMI result Body Mass Index 30.8 Labs 08/22/22 18:58 08/22/22 17:42 Labs: Laboratory Results - last 48 hr 08/22/22 08/22/22 17:42 18:58 WBC 6.1 RBC 3.68 L Hgb 10.8 L Hct 32.6 L MCV 88.6 MCH 29.3 MCHC 33.1 RDW 12.6 Plt Count 121 L MPV 12.1 Absolute Nucleated RBC 0.000 Nucleated RBC % (auto) 0.0 Sodium 139 Potassium 4.2 Chloride 104 Carbon Dioxide 25 Anion Gap 14 BUN 31 H Creatinine 0.80 Estim Creat Clear Calc 55.9 Estimated GFR > 60 Random Glucose 113 Calcium 8.6 D C-Reactive Protein 11.90 H Procalcitonin 0.05 Medications Medications Current Medications Acetaminophen (Acetaminophen 325 Mg Tablet) 650 mg PO Q6H PRN PRN Reason: Headache/Pain Mild Scale (1-3) Last Admin: 08/23/22 03:16 Dose: 650 mg Al Hydroxide/Mg Hydroxide (Magnesium Hydrox/Alum Hydrox 30 Ml Oral.Susp) 30 ml PO Q6H PRN PRN Reason: Heartburn/Nausea Amlodipine Besylate (Amlodipine Besylate 10 Mg Tablet) 10 mg PO DAILY [facility]; Protocol Last Admin: 08/22/22 09:58 Dose: 10 mg Benzocaine (Throat Lozenge, Medicated Lozenge) 1 lozenge MUCOUS MEM Q2H PRN PRN Reason: Sore Throat Cefuroxime Axetil (Cefuroxime Axetil 500 Mg Tablet) 500 mg PO BID [facility] Last Admin: 08/22/22 21:37 Dose: 500 mg Donepezil HCl (Donepezil Hcl 10 Mg Tablet) 10 mg PO BEDTIME [facility] Last Admin: 08/22/22 21:37 Dose: 10 mg Guaifenesin/Dextromethorphan (Guaifenesin Dm 100/10/5 Ml 5 Ml Syrup) 5 ml PO Q6H PRN PRN Reason: Cough Last Admin: 08/23/22 03:58 Dose: 5 ml Lidocaine/Diphenhydr/Alum/Mg/Simeth (Mag&Al/Sim/Diphenhyd/Lidocaine 10 Ml Oral.Susp) 10 ml PO Q4H PRN; Protocol PRN Reason: mouth sores pain Lisinopril (Lisinopril 10 Mg Tablet) 10 mg PO BEDTIME [facility]; Protocol Last Admin: 08/22/22 21:38 Dose: 10 mg Magnesium Hydroxide (Milk Of Magnesia 30 Ml Oral.Susp) 30 ml PO DAILY PRN PRN Reason: Constipation Olanzapine (Olanzapine 5 Mg Tablet) 5 mg PO BEDTIME [facility] Last Admin: 08/22/22 21:37 Dose: 5 mg Omeprazole (Omeprazole 20 Mg Capsule.Dr) 20 mg PO DAILY [facility] Last Admin: 08/22/22 09:58 Dose: 20 mg Trazodone HCl (Trazodone Hcl 50 Mg Tablet) 50 mg PO BEDTIME MRX1 PRN PRN Reason: Insomnia Allergies Allergies Allergy/AdvReac Type Severity Reaction Status Date / Time amoxicillin AdvReac Hives Verified 08/18/22 15:48 cefpodoxime [From Vantin] AdvReac Hives Verified 08/18/22 15:48 erythromycin base AdvReac Unknown Verified 08/18/22 15:48 Assessment & Plan Assessment & Plan (1) Dementia with mood disturbance: Status: Acute Code(s): F03.93 - Unspecified dementia, unspecified severity, with mood disturbance (2) COVID: Status: Acute Code(s): U07.1 - COVID-19 (3) Fever: Status: Acute Code(s): R50.9 - Fever, unspecified Plan MEDICAL: Patient is 87-year-old female referred from [facility] for visual hallucinations and disorganized thought process. Patient recently diagnosed with a UTI on 08/15/2022 and treated with cefuroxime in 20 mg b.i.d. Patient tested positive for COVID on 08/18/2022. Medical consult for high fever in the setting of COVID infection. Fever in the setting of COVID infection Patient spiked fever of 104 earlier today, now down to 100.0 after Tylenol Possibly secondary to COVID infection, ?pneumonia CBC CXR Blood cultures x2 CRP, calcitonin UTI Patient on cefuroxime day 5/7 Continue cefuroxime PSYCHIATRY: continue current medications, hospitalist following. Reason for contiued inpatient stay Substantial Risk for: inability to function Time Spent With Patient Time: Total time managing care of this patient today ____ minutes.
[2022-08-23 18:00] VITALS: BP 140/62; PULSE 99; RESP 17; TEMP 36.4; O2SAT 92
[2022-08-23] MEDS: OLANZapine 5 MG TABLET PO (20:47)
[2022-08-23] MEDS: Donepezil HCl 10 MG TABLET PO (20:47)
[2022-08-23] MEDS: lisinopriL 10 MG TABLET PO (20:47)
[2022-08-24] MEDS: guaiFENesin DM 100/10/5 ML 5 ML SYRUP PO ×2 (00:54→22:16)
[2022-08-24 07:30] VITALS: BP 137/63; PULSE 113; RESP 16; TEMP 36.7; O2SAT 89
--- NOTE | 2022-08-24 09:00 | HO.PSYCHPN ---
Subjective Subjective Date of Service: 08/24/22 Reason For Visit: depression Interim History: Patient had recent temperature being treated for bronchitis with antibiotics initially seem to need replacement oxygen was seen by hospitalist service seems stable on room air Medication Compliance: Yes Mental Status Exam Mental Status Exam Narrative: Alert, oriented to place, not situation. Pt wearing hospital gown, trying to cover self with incontinent pad, given blaket instead. She reports feeling very tired. No SI/HI. No overt psychosis or delusions. Speech is clear, regular rate, spontaneous. TP: some derailment. Insight/judgment: impaired x 2. At times refusing oxygen has difficult time processing information Diagnostics Vital Signs (24Hr): Vital Signs - 24 hr 08/23/22 10:15 08/23/22 18:00 Temperature 99 F 97.5 F Pulse Rate 103 H 99 Respiratory Rate 20 17 Blood Pressure 173/78 H 140/62 H Pulse Oximetry 93 92 Oxygen Delivery Method Room Air Room Air BMI result Body Mass Index 30.8 Labs 08/22/22 18:58 08/22/22 17:42 Labs: Laboratory Results - last 48 hr 08/22/22 08/22/22 17:42 18:58 WBC 6.1 RBC 3.68 L Hgb 10.8 L Hct 32.6 L MCV 88.6 MCH 29.3 MCHC 33.1 RDW 12.6 Plt Count 121 L MPV 12.1 Absolute Nucleated RBC 0.000 Nucleated RBC % (auto) 0.0 Sodium 139 Potassium 4.2 Chloride 104 Carbon Dioxide 25 Anion Gap 14 BUN 31 H Creatinine 0.80 Estim Creat Clear Calc 55.9 Estimated GFR > 60 Random Glucose 113 Calcium 8.6 D C-Reactive Protein 11.90 H Procalcitonin 0.05 Imaging Radiology Impressions: ITS Impressions Chest X-Ray 08/23/22 09:50 IMPRESSION: Bronchial wall thickening may be infectious and/or inflammatory in etiology. Medications Medications Current Medications Acetaminophen (Acetaminophen 325 Mg Tablet) 650 mg PO Q6H PRN PRN Reason: Headache/Pain Mild Scale (1-3) Last Admin: 08/23/22 03:16 Dose: 650 mg Al Hydroxide/Mg Hydroxide (Magnesium Hydrox/Alum Hydrox 30 Ml Oral.Susp) 30 ml PO Q6H PRN PRN Reason: Heartburn/Nausea Amlodipine Besylate (Amlodipine Besylate 10 Mg Tablet) 10 mg PO DAILY [facility]; Protocol Last Admin: 08/23/22 10:59 Dose: 10 mg Benzocaine (Throat Lozenge, Medicated Lozenge) 1 lozenge MUCOUS MEM Q2H PRN PRN Reason: Sore Throat Cefuroxime Axetil (Cefuroxime Axetil 500 Mg Tablet) 500 mg PO BID [facility] Last Admin: 08/23/22 20:47 Dose: 500 mg Donepezil HCl (Donepezil Hcl 10 Mg Tablet) 10 mg PO BEDTIME [facility] Last Admin: 08/23/22 20:47 Dose: 10 mg Guaifenesin/Dextromethorphan (Guaifenesin Dm 100/10/5 Ml 5 Ml Syrup) 5 ml PO Q6H PRN PRN Reason: Cough Last Admin: 08/24/22 00:54 Dose: 5 ml Lidocaine/Diphenhydr/Alum/Mg/Simeth (Mag&Al/Sim/Diphenhyd/Lidocaine 10 Ml Oral.Susp) 10 ml PO Q4H PRN; Protocol PRN Reason: mouth sores pain Lisinopril (Lisinopril 10 Mg Tablet) 10 mg PO BEDTIME [facility]; Protocol Last Admin: 08/23/22 20:47 Dose: 10 mg Magnesium Hydroxide (Milk Of Magnesia 30 Ml Oral.Susp) 30 ml PO DAILY PRN PRN Reason: Constipation Olanzapine (Olanzapine 5 Mg Tablet) 5 mg PO BEDTIME [facility] Last Admin: 08/23/22 20:47 Dose: 5 mg Omeprazole (Omeprazole 20 Mg Capsule.Dr) 20 mg PO DAILY [facility] Last Admin: 08/23/22 10:59 Dose: 20 mg Trazodone HCl (Trazodone Hcl 50 Mg Tablet) 50 mg PO BEDTIME MRX1 PRN PRN Reason: Insomnia Allergies Allergies Allergy/AdvReac Type Severity Reaction Status Date / Time amoxicillin AdvReac Hives Verified 08/18/22 15:48 cefpodoxime [From Vantin] AdvReac Hives Verified 08/18/22 15:48 erythromycin base AdvReac Unknown Verified 08/18/22 15:48 Assessment & Plan Assessment & Plan (1) Dementia with mood disturbance: Status: Acute Code(s): F03.93 - Unspecified dementia, unspecified severity, with mood disturbance (2) COVID: Status: Acute Code(s): U07.1 - COVID-19 (3) Fever: Status: Acute Code(s): R50.9 - Fever, unspecified Plan MEDICAL: Patient is 87-year-old female referred from [facility] for visual hallucinations and disorganized thought process. Patient recently diagnosed with a UTI on 08/15/2022 and treated with cefuroxime in 20 mg b.i.d. Patient tested positive for COVID on 08/18/2022. Medical consult for high fever in the setting of COVID infection. Fever in the setting of COVID infection Patient spiked fever of 104 earlier today, now down to 100.0 after Tylenol Possibly secondary to COVID infection, ?pneumonia CBC CXR Blood cultures x2 CRP, calcitonin UTI Patient on cefuroxime day 5/ Continue cefuroxime PSYCHIATRY: continue current medications, hospitalist following. 08/24/2022 Hospitalist consult continue plan of care evaluate medical safety Reason for contiued inpatient stay Substantial Risk for: rapid decompensation and med/psych decompensation Time Spent With Patient Time: Total time managing care of this patient today _35___ minutes.
[2022-08-24] MEDS: amLODIPine Besylate 10 MG TABLET PO (09:50)
[2022-08-24] MEDS: Omeprazole 20 MG CAPSULE.DR PO (09:50)
--- NOTE | 2022-08-24 14:36 | PM.EVENT ---
Event Note Date of Service: 08/24/22 Event Note: 87 year old female with history dementia, htn, gerd admitted to psychiatry with consult place to hospitalist service for evaluation of hypoxia. Pt diagnosed with COVID-19 on 08/18. She was evaluated by my colleague for evaluation of fever on 08/22. At the time CXR was ordered but not performed until yesterday. CXR showed bronchial wall thickening suggestive of infectious versus inflammatory process. She has been noted to be desaturating to about 88-89% and has been placed on supplemental O2 but has been refusing to wear this. On exam, there is no increased work of breathing, no cyanosis, extremities are warm with good capillary refill. Pt refused lung exam. Encourage patient to wear oxygen with goal sat 90-92%, please notify if maintaining <88%. Given recent covid, recent fever, and hypoxia, will treat with PO levaquin 750mg daily x 5 day (pt allergic to 3rd gen cephalosporins and pcn's). Also treat with prednisone 40mg daily x 5 days. Has no known known history of chronic lung diseases. However given bronchial inflammation, will also likely benefit from albuterol inhaler every 4 hours which are ordered. Encourage patient to get out of bed to fully expand lungs and can also use incentive spirometry if tolerated. Thank you for allowing me to participate in this consult. Signing off at this time. Please do not hesitate to call for further questions. Please call for O2 levels maintaining <88%. Please check pulse ox on foot, as readings on fingers were falsely low. Time Spent With Patient Time: Total time managing care of this patient today ____ minutes.
--- NOTE | 2022-08-24 17:39 | PC.NURSE ---
THIS PATIENTS O2 SAT WAS NOT STABLE TODAY. DURING MORNING ROUNDS AND VS CHECKS, IT WAS READING AT 89%. SHE THEN WENT DOWN TO 87% SHORTLY AFTER THAT. THIS RN PUT NC IN PATINET AND SET CONCENTRATOR TO 2L. AFTER THE INITIAL CHECK ON THE 2L, PT. WAS 89%. THIS RN THEN PUT PATIENT ON 4L AND CALLED DR. LOWE TO DISCUSS. THIS PROVIDER PLACED A HOSPITALIST CONSULT THE 4L WAS NOT INCREASING THE O2. IN THE MEAN TIME, THIS RN GOT PT. A NON-REBREATHER MASK, SHE WAS BREATHING THROUGH HER MOUTH AND NOT NOSE WHEN THE NC WAS ON. PT HAD A STRONG DISLIKE FOR THE O2 WELL THE 1:1 STAFFING SHE WAS GIVEN D/T EQUIPMENT OBS. PT. REFUSED TO KEEP O2 ON AND THEREFORE WENT BACK TO 15 MINUTE CHECKS. PT.'S O2 STATUS IS CURRENTLY 89%. HOSPITALIST AND PROVIDER BOTH AWARE OF PATIENTS REFUSAL FOR O2. STAFF TO CONTINUE TO MONITOR THIS PATIENT.
[2022-08-24 18:00] VITALS: BP 143/68; PULSE 125; RESP 26; TEMP 36.9; O2SAT 89
[2022-08-24] MEDS: levoFLOXacin 750 MG TABLET PO (18:45)
[2022-08-24] MEDS: predniSONE 20 MG TABLET 40 MG PO (18:45)
[2022-08-24] MEDS: Albuterol Sulfate 90 MCG 8 GM INHALER 1 PUFF INHALE ×2 (18:46→22:13)
[2022-08-24] MEDS: Donepezil HCl 10 MG TABLET PO (22:13)
[2022-08-24] MEDS: Acetaminophen 325 MG TABLET 650 MG PO (22:13)
[2022-08-24] MEDS: lisinopriL 10 MG TABLET PO (22:14)
[2022-08-24] MEDS: OLANZapine 5 MG TABLET PO (22:14)
[2022-08-24] MEDS: traZODone HCL 50 MG TABLET PO (22:15)
[2022-08-24 22:50] VITALS: PULSE 98; RESP 26; O2SAT 88
[2022-08-25] MEDS: Albuterol Sulfate 90 MCG 8 GM INHALER 1 PUFF INHALE ×2 (01:12→03:19)
[2022-08-25 04:18] VITALS: PULSE 78; RESP 18; O2SAT 91
[2022-08-25 06:00] VITALS: BP 141/65; PULSE 112; RESP 20; O2SAT 90
[2022-08-25] MEDS: predniSONE 20 MG TABLET 40 MG PO (09:42)
[2022-08-25] MEDS: Omeprazole 20 MG CAPSULE.DR PO (09:42)
[2022-08-25] MEDS: amLODIPine Besylate 10 MG TABLET PO (09:42)
[2022-08-25] MEDS: levoFLOXacin 750 MG TABLET PO (15:24)
[2022-08-25 18:00] VITALS: BP 135/62; PULSE 112; RESP 18; TEMP 36.1; O2SAT 93
[2022-08-25] MEDS: Donepezil HCl 10 MG TABLET PO (20:56)
[2022-08-25] MEDS: OLANZapine 5 MG TABLET PO (20:56)
[2022-08-25] MEDS: lisinopriL 10 MG TABLET PO (20:56)
--- NOTE | 2022-08-25 21:57 | HO.PSYCHPN ---
Subjective Subjective Date of Service: 08/25/22 Reason For Visit: depression Subjective Notes: Conditional Voluntary Interim History: pt alert clearer in thought improved deniess feeling sob Mental Status Exam Mental Status Exam Narrative: Alert, oriented to place, not situation. Pt wearing hospital gown, trying to cover self with incontinent pad, given blaket instead. She reports feeling very tired. No SI/HI. No overt psychosis or delusions. Speech is clear, regular rate, spontaneous. TP: some derailment. Insight/judgment: impaired x 2. At times refusing oxygen has difficult time processing information Diagnostics Vital Signs (24Hr): Vital Signs - 24 hr 08/24/22 22:50 08/25/22 04:18 08/25/22 06:00 Pulse Rate 98 78 112 H Respiratory Rate 26 H 18 20 Blood Pressure 141/65 H Pulse Oximetry 88 L 91 L 90 L Oxygen Delivery Method Room Air Room Air Room Air BMI result Body Mass Index 30.8 Labs 08/22/22 18:58 08/22/22 17:42 Imaging Radiology Impressions: ITS Impressions Chest X-Ray 08/23/22 09:50 IMPRESSION: Bronchial wall thickening may be infectious and/or inflammatory in etiology. Medications Medications Current Medications Acetaminophen (Acetaminophen 325 Mg Tablet) 650 mg PO Q6H PRN PRN Reason: Headache/Pain Mild Scale (1-3) Last Admin: 08/24/22 22:13 Dose: 650 mg Al Hydroxide/Mg Hydroxide (Magnesium Hydrox/Alum Hydrox 30 Ml Oral.Susp) 30 ml PO Q6H PRN PRN Reason: Heartburn/Nausea Amlodipine Besylate (Amlodipine Besylate 10 Mg Tablet) 10 mg PO DAILY [facility]; Protocol Last Admin: 08/25/22 09:42 Dose: 10 mg Benzocaine (Throat Lozenge, Medicated Lozenge) 1 lozenge MUCOUS MEM Q2H PRN PRN Reason: Sore Throat Cefuroxime Axetil (Cefuroxime Axetil 500 Mg Tablet) 500 mg PO BID [facility] Last Admin: 08/25/22 20:56 Dose: 500 mg Donepezil HCl (Donepezil Hcl 10 Mg Tablet) 10 mg PO BEDTIME [facility] Last Admin: 08/25/22 20:56 Dose: 10 mg Guaifenesin/Dextromethorphan (Guaifenesin Dm 100/10/5 Ml 5 Ml Syrup) 5 ml PO Q6H PRN PRN Reason: Cough Last Admin: 08/24/22 22:16 Dose: 5 ml Levofloxacin (Levofloxacin 750 Mg Tablet) 750 mg PO Q24H [facility] Stop: 08/28/22 15:01 Last Admin: 08/25/22 15:24 Dose: 750 mg Lidocaine/Diphenhydr/Alum/Mg/Simeth (Mag&Al/Sim/Diphenhyd/Lidocaine 10 Ml Oral.Susp) 10 ml PO Q4H PRN; Protocol PRN Reason: mouth sores pain Lisinopril (Lisinopril 10 Mg Tablet) 10 mg PO BEDTIME [facility]; Protocol Last Admin: 08/25/22 20:56 Dose: 10 mg Magnesium Hydroxide (Milk Of Magnesia 30 Ml Oral.Susp) 30 ml PO DAILY PRN PRN Reason: Constipation Olanzapine (Olanzapine 5 Mg Tablet) 5 mg PO BEDTIME [facility] Last Admin: 08/25/22 20:56 Dose: 5 mg Omeprazole (Omeprazole 20 Mg Capsule.Dr) 20 mg PO DAILY [facility] Last Admin: 08/25/22 09:42 Dose: 20 mg Prednisone (Prednisone 20 Mg Tablet) 40 mg PO DAILY [facility] Stop: 08/28/22 09:01 Last Admin: 08/25/22 09:42 Dose: 40 mg Trazodone HCl (Trazodone Hcl 50 Mg Tablet) 50 mg PO BEDTIME MRX1 PRN PRN Reason: Insomnia Last Admin: 08/24/22 22:15 Dose: 50 mg Allergies Allergies Allergy/AdvReac Type Severity Reaction Status Date / Time amoxicillin AdvReac Hives Verified 08/18/22 15:48 cefpodoxime [From Vantin] AdvReac Hives Verified 08/18/22 15:48 erythromycin base AdvReac Unknown Verified 08/18/22 15:48 Assessment & Plan Assessment & Plan (1) Dementia with mood disturbance: Status: Acute Code(s): F03.93 - Unspecified dementia, unspecified severity, with mood disturbance (2) COVID: Status: Acute Code(s): U07.1 - COVID-19 (3) Fever: Status: Acute Code(s): R50.9 - Fever, unspecified Plan MEDICAL: Patient is 87-year-old female referred from [facility] for visual hallucinations and disorganized thought process. Patient recently diagnosed with a UTI on 08/15/2022 and treated with cefuroxime in 20 mg b.i.d. Patient tested positive for COVID on 08/18/2022. Medical consult for high fever in the setting of COVID infection. Fever in the setting of COVID infection Patient spiked fever of 104 earlier today, now down to 100.0 after Tylenol Possibly secondary to COVID infection, ?pneumonia CBC CXR Blood cultures x2 CRP, calcitonin UTI Patient on cefuroxime day 10/27 Continue cefuroxime PSYCHIATRY: continue current medications, hospitalist following. 08/24/2022 Hospitalist consult continue plan of care evaluate medical safety 08/25/22 Pt seen in f/u mood ok some anxiety hospitalist consult appreciated did not feel supplemental o 2 necessary Reason for contiued inpatient stay Substantial Risk for: inability to function and rapid decompensation Time Spent With Patient Time: Total time managing care of this patient today ____ minutes.
[2022-08-26] MEDS: guaiFENesin DM 100/10/5 ML 5 ML SYRUP PO (02:19)
[2022-08-26 06:00] VITALS: BP 140/60; PULSE 78; RESP 20; TEMP 37; O2SAT 94
[2022-08-26] MEDS: amLODIPine Besylate 10 MG TABLET PO (10:25)
[2022-08-26] MEDS: Omeprazole 20 MG CAPSULE.DR PO (10:25)
[2022-08-26] MEDS: predniSONE 20 MG TABLET 40 MG PO (10:25)
[2022-08-26] MEDS: levoFLOXacin 750 MG TABLET PO (14:27)
[2022-08-26 18:00] VITALS: BP 152/69; PULSE 100; RESP 18; TEMP 36.2; O2SAT 91
[2022-08-26] MEDS: Donepezil HCl 10 MG TABLET PO (21:22)
[2022-08-26] MEDS: OLANZapine 5 MG TABLET PO (21:23)
[2022-08-26] MEDS: lisinopriL 10 MG TABLET PO (21:23)
--- NOTE | 2022-08-26 22:57 | HO.PSYCHPN ---
Subjective Subjective Date of Service: 08/26/22 Reason For Visit: depression Subjective Notes: Conditional Voluntary Interim History: Patient intermittently confused has difficulty understanding at times need for oxygen. Somewhat rambling. Case has been reviewed with hospitalist staff case reviewed with treatment team Being treated for respiratory infection Medication Compliance: Intermittent Review of Systems Recent hypoxia Mental Status Exam Mental Status Exam Narrative: Alert, oriented to place, not situation. Pt wearing hospital gown, trying to cover self with incontinent pad, given blaket instead. She reports feeling very tired. No SI/HI. No overt psychosis or delusions. Speech is clear, regular rate, spontaneous. TP: some derailment. Insight/judgment: impaired x 2. At times refusing oxygen has difficult time processing information Diagnostics Vital Signs (24Hr): Vital Signs - 24 hr 08/26/22 06:00 08/26/22 18:00 Temperature 98.6 F 97.1 F Pulse Rate 78 100 Respiratory Rate 20 18 Blood Pressure 140/60 H 152/69 H Pulse Oximetry 94 91 L Oxygen Delivery Method Room Air BMI result Body Mass Index 30.8 Labs 08/22/22 18:58 08/22/22 17:42 Imaging Radiology Impressions: ITS Impressions Chest X-Ray 08/23/22 09:50 IMPRESSION: Bronchial wall thickening may be infectious and/or inflammatory in etiology. Medications Medications Current Medications Acetaminophen (Acetaminophen 325 Mg Tablet) 650 mg PO Q6H PRN PRN Reason: Headache/Pain Mild Scale (1-3) Last Admin: 08/24/22 22:13 Dose: 650 mg Al Hydroxide/Mg Hydroxide (Magnesium Hydrox/Alum Hydrox 30 Ml Oral.Susp) 30 ml PO Q6H PRN PRN Reason: Heartburn/Nausea Amlodipine Besylate (Amlodipine Besylate 10 Mg Tablet) 10 mg PO DAILY [facility]; Protocol Last Admin: 08/26/22 10:25 Dose: 10 mg Benzocaine (Throat Lozenge, Medicated Lozenge) 1 lozenge MUCOUS MEM Q2H PRN PRN Reason: Sore Throat Cefuroxime Axetil (Cefuroxime Axetil 500 Mg Tablet) 500 mg PO BID [facility] Last Admin: 08/26/22 21:22 Dose: 500 mg Donepezil HCl (Donepezil Hcl 10 Mg Tablet) 10 mg PO BEDTIME [facility] Last Admin: 08/26/22 21:22 Dose: 10 mg Guaifenesin/Dextromethorphan (Guaifenesin Dm 100/10/5 Ml 5 Ml Syrup) 5 ml PO Q6H PRN PRN Reason: Cough Last Admin: 08/26/22 02:19 Dose: 5 ml Levofloxacin (Levofloxacin 750 Mg Tablet) 750 mg PO Q24H [facility] Stop: 08/28/22 15:01 Last Admin: 08/26/22 14:27 Dose: 750 mg Lidocaine/Diphenhydr/Alum/Mg/Simeth (Mag&Al/Sim/Diphenhyd/Lidocaine 10 Ml Oral.Susp) 10 ml PO Q4H PRN; Protocol PRN Reason: mouth sores pain Lisinopril (Lisinopril 10 Mg Tablet) 10 mg PO BEDTIME [facility]; Protocol Last Admin: 08/26/22 21:23 Dose: 10 mg Magnesium Hydroxide (Milk Of Magnesia 30 Ml Oral.Susp) 30 ml PO DAILY PRN PRN Reason: Constipation Olanzapine (Olanzapine 5 Mg Tablet) 5 mg PO BEDTIME [facility] Last Admin: 08/26/22 21:23 Dose: 5 mg Omeprazole (Omeprazole 20 Mg Capsule.Dr) 20 mg PO DAILY [facility] Last Admin: 08/26/22 10:25 Dose: 20 mg Prednisone (Prednisone 20 Mg Tablet) 40 mg PO DAILY [facility] Stop: 08/28/22 09:01 Last Admin: 08/26/22 10:25 Dose: 40 mg Trazodone HCl (Trazodone Hcl 50 Mg Tablet) 50 mg PO BEDTIME MRX1 PRN PRN Reason: Insomnia Last Admin: 08/24/22 22:15 Dose: 50 mg Allergies Allergies Allergy/AdvReac Type Severity Reaction Status Date / Time amoxicillin AdvReac Hives Verified 08/18/22 15:48 cefpodoxime [From Vantin] AdvReac Hives Verified 08/18/22 15:48 erythromycin base AdvReac Unknown Verified 08/18/22 15:48 Assessment & Plan Assessment & Plan (1) Dementia with mood disturbance: Status: Acute Code(s): F03.93 - Unspecified dementia, unspecified severity, with mood disturbance (2) COVID: Status: Acute Code(s): U07.1 - COVID-19 (3) Fever: Status: Acute Code(s): R50.9 - Fever, unspecified Plan MEDICAL: Patient is 87-year-old female referred from [facility] for visual hallucinations and disorganized thought process. Patient recently diagnosed with a UTI on 08/15/2022 and treated with cefuroxime in 20 mg b.i.d. Patient tested positive for COVID on 08/18/2022. Medical consult for high fever in the setting of COVID infection. Fever in the setting of COVID infection Patient spiked fever of 104 earlier today, now down to 100.0 after Tylenol Possibly secondary to COVID infection, ?pneumonia CBC CXR Blood cultures x2 CRP, calcitonin UTI Patient on cefuroxime day 10/27 Continue cefuroxime PSYCHIATRY: continue current medications, hospitalist following. 08/24/2022 Hospitalist consult continue plan of care evaluate medical safety 08/25/22 Pt seen in f/u mood ok some anxiety hospitalist consult appreciated did not feel supplemental o 2 necessary 08/26/2022 Continue to monitor patient's respiratory status encourage nasal O2 as needed on antibiotic treatment Informed Consent: further education needed Reason for contiued inpatient stay Substantial Risk for: rapid decompensation and med/psych decompensation Time Spent With Patient Time: Total time managing care of this patient today ____ minutes.
[2022-08-27 07:30] VITALS: BP 124/59; PULSE 114; RESP 16; TEMP 36.7; O2SAT 85
[2022-08-27] MEDS: amLODIPine Besylate 10 MG TABLET PO (10:44)
[2022-08-27] MEDS: Omeprazole 20 MG CAPSULE.DR PO (10:44)
[2022-08-27] MEDS: predniSONE 20 MG TABLET 40 MG PO (10:45)
--- NOTE | 2022-08-27 11:37 | HO.PSYCHPN ---
Subjective Subjective Date of Service: 08/27/22 Reason For Visit: depression Subjective Notes: Conditional Voluntary Interim History: Pt de-saturating to mid 80's. Pt in agreement to use nasal o2, 2L, O2sat increase to 92%. Pt presents with disorganized and derailed speech, but at times able to report to some questions correctly. She denies SI/HI. She reports feeling tired. Medication Compliance: Yes Side effects from medications: No Review of Systems Review of Systems Occasional dry cough [place] feverish earlier today Patient denies shortness of breath No chills, N/V, abdominal pain Denies chest pain/pressure, palpitations Yes all other systems are reviewed and are negative Mental Status Exam Mental Status Exam Narrative: Alert, oriented to place, not situation. Pt wearing hospital gown, trying to cover self with incontinent pad, given blaket instead. She reports feeling very tired. No SI/HI. No overt psychosis or delusions. Speech is clear, regular rate, spontaneous. TP: some derailment. Insight/judgment: impaired x 2. At times refusing oxygen has difficult time processing information Diagnostics Vital Signs (24Hr): Vital Signs - 24 hr 08/26/22 18:00 Temperature 97.1 F Pulse Rate 100 Respiratory Rate 18 Blood Pressure 152/69 H Pulse Oximetry 91 L Oxygen Delivery Method Room Air BMI result Body Mass Index 30.8 Labs 08/22/22 18:58 08/22/22 17:42 Imaging Radiology Impressions: ITS Impressions Chest X-Ray 08/23/22 09:50 IMPRESSION: Bronchial wall thickening may be infectious and/or inflammatory in etiology. Medications Medications Current Medications Acetaminophen (Acetaminophen 325 Mg Tablet) 650 mg PO Q6H PRN PRN Reason: Headache/Pain Mild Scale (1-3) Last Admin: 08/24/22 22:13 Dose: 650 mg Al Hydroxide/Mg Hydroxide (Magnesium Hydrox/Alum Hydrox 30 Ml Oral.Susp) 30 ml PO Q6H PRN PRN Reason: Heartburn/Nausea Amlodipine Besylate (Amlodipine Besylate 10 Mg Tablet) 10 mg PO DAILY [facility]; Protocol Last Admin: 08/27/22 10:44 Dose: 10 mg Benzocaine (Throat Lozenge, Medicated Lozenge) 1 lozenge MUCOUS MEM Q2H PRN PRN Reason: Sore Throat Cefuroxime Axetil (Cefuroxime Axetil 500 Mg Tablet) 500 mg PO BID [facility] Last Admin: 08/27/22 10:44 Dose: 500 mg Donepezil HCl (Donepezil Hcl 10 Mg Tablet) 10 mg PO BEDTIME [facility] Last Admin: 08/26/22 21:22 Dose: 10 mg Guaifenesin/Dextromethorphan (Guaifenesin Dm 100/10/5 Ml 5 Ml Syrup) 5 ml PO Q6H PRN PRN Reason: Cough Last Admin: 08/26/22 02:19 Dose: 5 ml Levofloxacin (Levofloxacin 750 Mg Tablet) 750 mg PO Q24H [facility] Stop: 08/28/22 15:01 Last Admin: 08/26/22 14:27 Dose: 750 mg Lidocaine/Diphenhydr/Alum/Mg/Simeth (Mag&Al/Sim/Diphenhyd/Lidocaine 10 Ml Oral.Susp) 10 ml PO Q4H PRN; Protocol PRN Reason: mouth sores pain Lisinopril (Lisinopril 10 Mg Tablet) 10 mg PO BEDTIME [facility]; Protocol Last Admin: 08/26/22 21:23 Dose: 10 mg Magnesium Hydroxide (Milk Of Magnesia 30 Ml Oral.Susp) 30 ml PO DAILY PRN PRN Reason: Constipation Olanzapine (Olanzapine 5 Mg Tablet) 5 mg PO BEDTIME [facility] Last Admin: 08/26/22 21:23 Dose: 5 mg Omeprazole (Omeprazole 20 Mg Capsule.Dr) 20 mg PO DAILY [facility] Last Admin: 08/27/22 10:44 Dose: 20 mg Prednisone (Prednisone 20 Mg Tablet) 40 mg PO DAILY [facility] Stop: 08/28/22 09:01 Last Admin: 08/27/22 10:45 Dose: 40 mg Trazodone HCl (Trazodone Hcl 50 Mg Tablet) 50 mg PO BEDTIME MRX1 PRN PRN Reason: Insomnia Last Admin: 08/24/22 22:15 Dose: 50 mg Allergies Allergies Allergy/AdvReac Type Severity Reaction Status Date / Time amoxicillin AdvReac Hives Verified 08/18/22 15:48 cefpodoxime [From Vantin] AdvReac Hives Verified 08/18/22 15:48 erythromycin base AdvReac Unknown Verified 08/18/22 15:48 Assessment & Plan Assessment & Plan (1) Dementia with mood disturbance: Status: Acute Code(s): F03.93 - Unspecified dementia, unspecified severity, with mood disturbance Plan MEDICAL: Patient is 87-year-old female referred from [facility] for visual hallucinations and disorganized thought process. Patient recently diagnosed with a UTI on 08/15/2022 and treated with cefuroxime in 20 mg b.i.d. Patient tested positive for COVID on 08/18/2022. Medical consult for high fever in the setting of COVID infection. Fever in the setting of COVID infection Patient spiked fever of 104 earlier today, now down to 100.0 after Tylenol Possibly secondary to COVID infection, ?pneumonia CBC CXR Blood cultures x2 CRP, calcitonin UTI Patient on cefuroxime day 10/27 Continue cefuroxime PSYCHIATRY: continue current medications, hospitalist following. 08/24/2022 Hospitalist consult continue plan of care evaluate medical safety 08/25/22 Pt seen in f/u mood ok some anxiety hospitalist consult appreciated did not feel supplemental o 2 necessary 08/27 O2sat, in mid 80's, she agrees to use supplemental O2. continue tx. Reason for contiued inpatient stay Substantial Risk for: inability to function Time Spent With Patient Time: Total time managing care of this patient today ____ minutes.
[2022-08-27] MEDS: levoFLOXacin 750 MG TABLET PO (15:36)
[2022-08-27 15:47] VITALS: O2SAT 92
--- NOTE | 2022-08-27 16:32 | PC.NURSE ---
PT. PUT BACK ON 2l OF NC O2 THIS SHIFT, SHE WAS DESATURATING DOWN TO 82% ON ROOM AIR. PT. NOW SATURATING AT 92% ON 2l.
[2022-08-27 20:00] VITALS: BP 110/56; PULSE 64; RESP 17; TEMP 35.9; O2SAT 94
[2022-08-28] VITALS: O2SAT 93
[2022-08-28 04:00] VITALS: RESP 18; O2SAT 96
[2022-08-28 08:00] VITALS: BP 149/64; PULSE 120; RESP 16; TEMP 36.2; O2SAT 93
[2022-08-28] MEDS: amLODIPine Besylate 10 MG TABLET PO (10:17)
[2022-08-28] MEDS: Omeprazole 20 MG CAPSULE.DR PO (10:17)
[2022-08-28] MEDS: predniSONE 20 MG TABLET 40 MG PO (10:18)
[2022-08-28 12:00] VITALS: O2SAT 92
--- NOTE | 2022-08-28 12:28 | HO.PSYCHPN ---
Subjective Subjective Date of Service: 08/28/22 Reason For Visit: depression Subjective Notes: Conditional Voluntary Interim History: Pt reports feeling better physically. She is tolerating nasal cannula, did desaturate when tried to wean off. No SI/HI. She continues to present as increasingly confused, some degree of delirium with covid is evident. Pt in room. Will hold off on discharge at this time. Review of Systems Review of Systems Occasional dry cough [place] feverish earlier today Patient denies shortness of breath No chills, N/V, abdominal pain Denies chest pain/pressure, palpitations Yes all other systems are reviewed and are negative Mental Status Exam Mental Status Exam Narrative: Alert, oriented to place, not situation. Pt wearing hospital gown, trying to cover self with incontinent pad, given blaket instead. She reports feeling very tired. No SI/HI. No overt psychosis or delusions. Speech is clear, regular rate, spontaneous. TP: some derailment. Insight/judgment: impaired x 2. At times refusing oxygen has difficult time processing information Diagnostics Vital Signs (24Hr): Vital Signs - 24 hr 08/29/22 12:00 08/29/22 20:00 08/30/22 00:00 Temperature 97.1 F Pulse Rate 101 H Respiratory Rate 20 Blood Pressure 124/63 Pulse Oximetry 92 96 94 Oxygen Delivery Method Room Air Oxygen Flow Rate 2 2 08/30/22 04:00 Temperature Pulse Rate Respiratory Rate Blood Pressure Pulse Oximetry 94 Oxygen Delivery Method Nasal Cannula Oxygen Flow Rate 2 BMI result Body Mass Index 30.8 Labs 08/22/22 18:58 08/22/22 17:42 Imaging Radiology Impressions: ITS Impressions Chest X-Ray 08/23/22 09:50 IMPRESSION: Bronchial wall thickening may be infectious and/or inflammatory in etiology. Medications Medications Current Medications Acetaminophen (Acetaminophen 325 Mg Tablet) 650 mg PO Q6H PRN PRN Reason: Headache/Pain Mild Scale (1-3) Last Admin: 08/29/22 10:13 Dose: 650 mg Al Hydroxide/Mg Hydroxide (Magnesium Hydrox/Alum Hydrox 30 Ml Oral.Susp) 30 ml PO Q6H PRN PRN Reason: Heartburn/Nausea Amlodipine Besylate (Amlodipine Besylate 10 Mg Tablet) 10 mg PO DAILY [facility]; Protocol Last Admin: 08/30/22 09:27 Dose: 10 mg Benzocaine (Throat Lozenge, Medicated Lozenge) 1 lozenge MUCOUS MEM Q2H PRN PRN Reason: Sore Throat Donepezil HCl (Donepezil Hcl 10 Mg Tablet) 10 mg PO BEDTIME [facility] Last Admin: 08/29/22 20:31 Dose: 10 mg Guaifenesin/Dextromethorphan (Guaifenesin Dm 100/10/5 Ml 5 Ml Syrup) 5 ml PO Q6H PRN PRN Reason: Cough Last Admin: 08/30/22 02:22 Dose: 5 ml Lidocaine/Diphenhydr/Alum/Mg/Simeth (Mag&Al/Sim/Diphenhyd/Lidocaine 10 Ml Oral.Susp) 10 ml PO Q4H PRN; Protocol PRN Reason: mouth sores pain Lisinopril (Lisinopril 10 Mg Tablet) 10 mg PO BEDTIME [facility]; Protocol Last Admin: 08/29/22 20:31 Dose: 10 mg Magnesium Hydroxide (Milk Of Magnesia 30 Ml Oral.Susp) 30 ml PO DAILY PRN PRN Reason: Constipation Olanzapine (Olanzapine 5 Mg Tablet) 5 mg PO BEDTIME [facility] Last Admin: 08/29/22 20:31 Dose: 5 mg Omeprazole (Omeprazole 20 Mg Capsule.Dr) 20 mg PO DAILY [facility] Last Admin: 08/30/22 09:27 Dose: 20 mg Trazodone HCl (Trazodone Hcl 50 Mg Tablet) 50 mg PO BEDTIME MRX1 PRN PRN Reason: Insomnia Last Admin: 08/24/22 22:15 Dose: 50 mg Allergies Allergies Allergy/AdvReac Type Severity Reaction Status Date / Time amoxicillin AdvReac Hives Verified 08/18/22 15:48 cefpodoxime [From Vantin] AdvReac Hives Verified 08/18/22 15:48 erythromycin base AdvReac Unknown Verified 08/18/22 15:48 Assessment & Plan Assessment & Plan (1) Dementia with mood disturbance: Status: Acute Code(s): F03.93 - Unspecified dementia, unspecified severity, with mood disturbance Plan MEDICAL: Patient is 87-year-old female referred from [facility] for visual hallucinations and disorganized thought process. Patient recently diagnosed with a UTI on 08/15/2022 and treated with cefuroxime in 20 mg b.i.d. Patient tested positive for COVID on 08/18/2022. Medical consult for high fever in the setting of COVID infection. Fever in the setting of COVID infection Patient spiked fever of 104 earlier today, now down to 100.0 after Tylenol Possibly secondary to COVID infection, ?pneumonia CBC CXR Blood cultures x2 CRP, calcitonin UTI Patient on cefuroxime day 10/27 Continue cefuroxime PSYCHIATRY: continue current medications, hospitalist following. 08/24/2022 Hospitalist consult continue plan of care evaluate medical safety 08/25/22 Pt seen in f/u mood ok some anxiety hospitalist consult appreciated did not feel supplemental o 2 necessary 08/27 O2sat, in mid 80's, she agrees to use supplemental O2. continue tx. 08/28 continue tx. Reason for contiued inpatient stay Substantial Risk for: inability to function Time Spent With Patient Time: Total time managing care of this patient today ____ minutes.
[2022-08-28] MEDS: levoFLOXacin 750 MG TABLET PO (14:43)
[2022-08-28 16:00] VITALS: O2SAT 92
[2022-08-28 20:00] VITALS: BP 133/68; PULSE 104; RESP 20; TEMP 36.2; O2SAT 90
[2022-08-28] MEDS: Donepezil HCl 10 MG TABLET PO (20:17)
[2022-08-28] MEDS: OLANZapine 5 MG TABLET PO (20:18)
[2022-08-28] MEDS: lisinopriL 10 MG TABLET PO (20:53)
[2022-08-29] VITALS: BP 130/66; PULSE 100; RESP 18; TEMP 36.2; O2SAT 92
[2022-08-29 04:00] VITALS: PULSE 87; O2SAT 94
[2022-08-29 08:00] VITALS: O2SAT 92
[2022-08-29] MEDS: Acetaminophen 325 MG TABLET 650 MG PO (10:13)
[2022-08-29] MEDS: amLODIPine Besylate 10 MG TABLET PO (10:13)
[2022-08-29] MEDS: Omeprazole 20 MG CAPSULE.DR PO (10:13)
--- NOTE | 2022-08-29 10:21 | P.PNPSI_ITS ---
Subjective Subjective Date of Service: 08/29/22 Reason For Visit: depression Subjective Notes: Conditional Voluntary Interim History: Pt reports feeling better physically. VS stable, on 2L 02sat 96%. She is tolerating nasal cannula, did de-saturate when tried to wean off. No SI/HI. She continues to present as increasingly confused, some degree of delirium with co vid is evident. No signs of respiratory distress. Review of Systems Review of Systems Occasional dry cough [place] feverish earlier today Patient denies shortness of breath No chills, N/V, abdominal pain Denies chest pain/pressure, palpitations Yes all other systems are reviewed and are negative Mental Status Exam Mental Status Exam Narrative: Alert, oriented to place, not situation. Pt wearing hospital gown, trying to co julia self with incontinent pad, given blaket instead. She reports feeling very tired. No SI/HI. No overt psychosis or delusions. Speech is clear, regular rate, spontaneous. TP: some derailment. Insight/judgment: impaired x 2. At times refusing oxygen has difficult time processing information Diagnostics Vital Signs (24Hr): Vital Signs - 24 hr 08/29/22 12:00 08/29/22 20:00 08/30/22 00:00 Temperature 97.1 F Pulse Rate 101 H Respiratory Rate 20 Blood Pressure 124/63 Pulse Oximetry 92 96 94 Oxygen Delivery Method Room Air Oxygen Flow Rate 2 2 08/30/22 04:00 Temperature Pulse Rate Respiratory Rate Blood Pressure Pulse Oximetry 94 Oxygen Delivery Method Nasal Cannula Oxygen Flow Rate 2 BMI result Body Mass Index 30.8 Labs 08/22/22 18:58 08/22/22 17:42 Imaging Radiology Impressions: ITS Impressions Chest X-Ray 08/23/22 09:50 IMPRESSION: Bronchial wall thickening may be infectious and/or inflammatory in etiology. Medications Medications Current Medications Acetaminophen (Acetaminophen 325 Mg Tablet) 650 mg PO Q6H PRN PRN Reason: Headache/Pain Mild Scale (1-3) Last Admin: 08/29/22 10:13 Dose: 650 mg Al Hydroxide/Mg Hydroxide (Magnesium Hydrox/Alum Hydrox 30 Ml Oral.Susp) 30 ml PO Q6H PRN PRN Reason: Heartburn/Nausea Amlodipine Besylate (Amlodipine Besylate 10 Mg Tablet) 10 mg PO DAILY [facility]; Protocol Last Admin: 08/30/22 09:27 Dose: 10 mg Benzocaine (Throat Lozenge, Medicated Lozenge) 1 lozenge MUCOUS MEM Q2H PRN PRN Reason: Sore Throat Donepezil HCl (Donepezil Hcl 10 Mg Tablet) 10 mg PO BEDTIME [facility] Last Admin: 08/29/22 20:31 Dose: 10 mg Guaifenesin/Dextromethorphan (Guaifenesin Dm 100/10/5 Ml 5 Ml Syrup) 5 ml PO Q6H PRN PRN Reason: Cough Last Admin: 08/30/22 02:22 Dose: 5 ml Lidocaine/Diphenhydr/Alum/Mg/Simeth (Mag&Al/Sim/Diphenhyd/Lidocaine 10 Ml Oral.Susp) 10 ml PO Q4H PRN; Protocol PRN Reason: mouth sores pain Lisinopril (Lisinopril 10 Mg Tablet) 10 mg PO BEDTIME [facility]; Protocol Last Admin: 08/29/22 20:31 Dose: 10 mg Magnesium Hydroxide (Milk Of Magnesia 30 Ml Oral.Susp) 30 ml PO DAILY PRN PRN Reason: Constipation Olanzapine (Olanzapine 5 Mg Tablet) 5 mg PO BEDTIME [facility] Last Admin: 08/29/22 20:31 Dose: 5 mg Omeprazole (Omeprazole 20 Mg Capsule.Dr) 20 mg PO DAILY [facility] Last Admin: 08/30/22 09:27 Dose: 20 mg Trazodone HCl (Trazodone Hcl 50 Mg Tablet) 50 mg PO BEDTIME MRX1 PRN PRN Reason: Insomnia Last Admin: 08/24/22 22:15 Dose: 50 mg Allergies Allergies Allergy/AdvReac Type Severity Reaction Status Date / Time amoxicillin AdvReac Hives Verified 08/18/22 15:48 cefpodoxime [From Vantin] AdvReac Hives Verified 08/18/22 15:48 erythromycin base AdvReac Unknown Verified 08/18/22 15:48 Assessment & Plan Assessment & Plan (1) Dementia with mood disturbance: Status: Acute Code(s): F03.93 - Unspecified dementia, unspecified severity, with mood disturbance Plan MEDICAL: Patient is 87-year-old female referred from [facility] for visual hallucinations and disorganized thought process. Patient recently diagnosed with a UTI on 08/15/2022 and treated with cefuroxime in 20 mg b.i.d. Patient tested positive for COVID on 08/18/2022. Medical consult for high fever in the setting of COVID infection. Fever in the setting of COVID infection Patient spiked fever of 104 earlier today, now down to 100.0 after Tylenol Possibly secondary to COVID infection, ?pneumonia CBC CXR Blood cultures x2 CRP, calcitonin UTI Patient on cefuroxime day 10/27 Continue cefuroxime PSYCHIATRY: continue current medications, hospitalist following. 08/24/2022 Hospitalist consult continue plan of care evaluate medical safety 08/25/22 Pt seen in f/u mood ok some anxiety hospitalist consult appreciated did not f eel supplemental o 2 necessary 08/27 O2sat, in mid 80's, she agrees to use supplemental O2. continue tx. 08/28 continue tx. 08/29 continue tx. Reason for contiued inpatient stay Substantial Risk for: inability to function Time Spent With Patient Time: Total time managing care of this patient today ____ minutes.
[2022-08-29 12:00] VITALS: O2SAT 92
[2022-08-29 20:00] VITALS: BP 124/63; PULSE 101; RESP 20; TEMP 36.2; O2SAT 96
[2022-08-29] MEDS: lisinopriL 10 MG TABLET PO (20:31)
[2022-08-29] MEDS: OLANZapine 5 MG TABLET PO (20:31)
[2022-08-29] MEDS: Donepezil HCl 10 MG TABLET PO (20:31)
[2022-08-30] VITALS: O2SAT 94
[2022-08-30] MEDS: guaiFENesin DM 100/10/5 ML 5 ML SYRUP PO (02:22)
[2022-08-30 04:00] VITALS: O2SAT 94
--- NOTE | 2022-08-30 08:54 | P.PNPSI_ITS ---
Subjective Subjective Date of Service: 08/30/22 Reason For Visit: depression Subjective Notes: Conditional Voluntary Interim History: Pt reports feeling less tired. She reports sleeping better. Sitter reports pt woke up last night confused and seeing things that were no there. She denies SI/HI. O2sat desaturates when nasal cannula is taken off. Will order pulmonology consult. Review of Systems Review of Systems Occasional dry cough [place] feverish earlier today Patient denies shortness of breath No chills, N/V, abdominal pain Denies chest pain/pressure, palpitations Yes all other systems are reviewed and are negative Mental Status Exam Mental Status Exam Narrative: Alert, oriented to place, not situation. Pt wearing hospital gown, trying to cover self with incontinent pad, given blaket instead. She reports feeling very tired. No SI/HI. No overt psychosis or delusions. Speech is clear, regular rate, spontaneous. TP: some derailment. Insight/judgment: impaired x 2. At times r efusing oxygen has difficult time processing information Diagnostics Vital Signs (24Hr): Vital Signs - 24 hr 08/30/22 09:15 08/30/22 13:00 08/30/22 17:00 Temperature 98.2 F 97.5 F 97.6 F Pulse Rate 95 87 100 Respiratory Rate 20 20 20 Blood Pressure 107/54 L 123/70 Pulse Oximetry 94 94 95 Oxygen Delivery Method Nasal Cannula Nasal Cannula Room Air Oxygen Flow Rate 2 2 08/30/22 19:20 08/31/22 00:00 08/31/22 04:00 Temperature 97.0 F Pulse Rate 100 Respiratory Rate 20 Blood Pressure 113/73 Pulse Oximetry 95 94 93 Oxygen Delivery Method Room Air Nasal Cannula Nasal Cannula Oxygen Flow Rate 2 2 BMI result Body Mass Index 30.8 Labs 08/22/22 18:58 08/22/22 17:42 Imaging Radiology Impressions: ITS Impressions Chest X-Ray 08/23/22 09:50 IMPRESSION: Bronchial wall thickening may be infectious and/or inflammatory in etiology. Chest X-Ray 08/30/22 14:00 IMPRESSION: Patchy multifocal left parenchymal airspace opacities suspicious for multifocal infection or aspiration, alternatively asymmetric edema. Recommend follow-up radiographs to ensure resolution. Medications Medications Current Medications Acetaminophen (Acetaminophen 325 Mg Tablet) 650 mg PO Q6H PRN PRN Reason: Headache/Pain Mild Scale (1-3) Last Admin: 08/29/22 10:13 Dose: 650 mg Al Hydroxide/Mg Hydroxide (Magnesium Hydrox/Alum Hydrox 30 Ml Oral.Susp) 30 ml PO Q6H PRN PRN Reason: Heartburn/Nausea Amlodipine Besylate (Amlodipine Besylate 10 Mg Tablet) 10 mg PO DAILY [facility]; P rotocol Last Admin: 08/30/22 09:27 Dose: 10 mg Benzocaine (Throat Lozenge, Medicated Lozenge) 1 lozenge MUCOUS MEM Q2H PRN PRN Reason: Sore Throat Donepezil HCl (Donepezil Hcl 10 Mg Tablet) 10 mg PO BEDTIME [facility] Last Admin: 08/30/22 20:24 Dose: 10 mg Doxycycline Monohydrate (Doxycycline Monohydrate 100 Mg Capsule) 100 mg PO Q12H [facility] Stop: 09/05/22 23:00 Last Admin: 08/31/22 01:18 Dose: 100 mg Fluticasone/Vilanterol (Fluticasone/Vilanterol 200/25 Blst.W.Dev) 1 puff INHALE RDAILY [facility] Guaifenesin (Guaifenesin La 600 Mg Tab.Er.12h) 600 mg PO BID [facility] Last Admin: 08/30/22 20:24 Dose: 600 mg Lidocaine/Diphenhydr/Alum/Mg/Simeth (Mag&Al/Sim/Diphenhyd/Lidocaine 10 Ml Oral.Susp) 10 ml PO Q4H PRN; Protocol PRN Reason: mouth sores pain Lisinopril (Lisinopril 10 Mg Tablet) 10 mg PO BEDTIME [facility]; Protocol Last Admin: 08/30/22 20:23 Dose: 10 mg Loratadine (Loratadine 10 Mg Tablet) 10 mg PO DAILY [facility] Last Admin: 08/30/22 11:12 Dose: 10 mg Magnesium Hydroxide (Milk Of Magnesia 30 Ml Oral.Susp) 30 ml PO DAILY PRN PRN Reason: Constipation Olanzapine (Olanzapine 5 Mg Tablet) 5 mg PO BEDTIME [facility] Last Admin: 08/30/22 20:24 Dose: 5 mg Omeprazole (Omeprazole 20 Mg Capsule.Dr) 20 mg PO DAILY [facility] Last Admin: 08/30/22 09:27 Dose: 20 mg Trazodone HCl (Trazodone Hcl 50 Mg Tablet) 50 mg PO BEDTIME PRN PRN Reason: Insomnia Allergies Allergies Allergy/AdvReac Type Severity Reaction Status Date / Time amoxicillin AdvReac Hives Verified 08/18/22 15:48 cefpodoxime [From Vantin] AdvReac Hives Verified 08/18/22 15:48 erythromycin base AdvReac Unknown Verified 08/18/22 15:48 Assessment & Plan Assessment & Plan (1) Dementia with mood disturbance: Status: Acute Code(s): F03.93 - Unspecified dementia, unspecified severity, with mood disturbance Plan 08/30 continue treatment. Pulmonology consult ordered. Reason for contiued inpatient stay Substantial Risk for: inability to function Time Spent With Patient Time: Total time managing care of this patient today ____ minutes.
[2022-08-30 09:15] VITALS: BP 107/54; PULSE 95; RESP 20; TEMP 36.8; O2SAT 94
[2022-08-30] MEDS: Omeprazole 20 MG CAPSULE.DR PO (09:27)
[2022-08-30] MEDS: amLODIPine Besylate 10 MG TABLET PO (09:27)
[2022-08-30] MEDS: Loratadine 10 MG TABLET PO (11:12)
[2022-08-30] MEDS: guaiFENesin LA 600 MG TAB.ER.12H PO ×2 (11:12→20:24)
[2022-08-30 13:00] VITALS: PULSE 87; RESP 20; TEMP 36.4; O2SAT 94
[2022-08-30] MEDS: Doxycycline Monohydrate 100 MG CAPSULE PO (14:06)
--- NOTE | 2022-08-30 14:50 | PM.CNPUL ---
History of Present Illness History of Present Illness Consult date: 08/30/22 Chief complaint: depression Narrative: This is an inpatient pulmonary consultation. The patient is an 87 year old female with history dementia, htn, gerd admitted to psychiatry with consult place to hospitalist service for evaluation of hypoxia. Pt diagnosed with COVID-19 on 08/18. CXR showed bronchial wall thickening suggestive of infectious versus inflammatory process.? She has been noted to be desaturating to about 88-89% and has been placed on supplemental O2 but has been refusing to wear this. On exam, there is no increased work of breathing, no cyanosis, extremities are warm with good capillary refill. Pt refused lung exam. Encourage patient to wear oxygen with goal sat 90-92%, please notify if maintaining <88%. Given recent covid, recent fever, and hypoxia, will treat with PO levaquin 750mg daily x 5 day (pt allergic to 3rd gen cephalosporins and pcn's). Also treat with prednisone 40mg daily x 5 days. Has no known known history of chronic lung diseases.? However given bronchial inflammation, will also likely benefit from albuterol inhaler every 4 hours which are ordered.? Encourage patient to get out of bed to fully expand lungs and can also use incentive spirometry if tolerated. The patient completed all the antibiotics and prednisone although she still in the oxygen at 2 L maintaining a pulse ox above 90%. Therefore Pulmonary was consulted. I did evaluate the patient. She does have some chest congestion. She is using a lot of tissue paper to clear her secretions. Denies any chest pains or shortness of breath. Head examination she does have some crackles at the left mid lung. Therefore, have her get a repeat chest x-ray in addition to that will treat her with doxycycline for postviral bacterial infection and also start her on Breo. For now she will continue using the oxygen at the current settings. It should be titrated to maintain a pulse ox above 90%. Review of Systems Review of Systems: Occasional dry cough [place] feverish earlier today Patient denies shortness of breath No chills, N/V, abdominal pain Denies chest pain/pressure, palpitations Yes all other systems are reviewed and are negative PMFSH Past Medical History Medical History (Updated 08/30/22 @ 14:55 by Live Woods MD) Acid reflux HTN (hypertension) Social History Social History Household Members: None Housing: Other Housing Other:: mobile home Do you presently have visiting nurse or other home services: No Patient Tobacco Use Status: Former Tobacco user Quit Date: 55 years ago Tobacco use type: Cigarette Smoked in Last 30 Days: No e-Cigarette/Vaping Use: Never Used Patient Interested in Nicotine Replacement: No (pt is not interested) Patient Given Instructions on How to Stop Smoking: No Second Hand Smoke Exposure: No Use of substances other than those prescribed or required for medical reasons: No Currently Displaying Signs/Symptoms of Drug Intoxication Withdrawal: No Have you been hit, kicked, punched, or otherwise hurt by someone within the past year? If so, by whom?: No Do you feel safe in your current relationship?: No Current Relationship Is there a partner from a previous relationship who is making you feel unsafe now?: No Are you made to feel afraid or neglected: No Advance Directives: No Advance Directives Information Provided: Yes Do you have thoughts of harming others: None Do you have a plan to hurt others: No Plan Recently lost weight without trying: No How much weight loss: Not applicable Eating poorly because of decreased appetite: No Nutrition screen score: 0 Nutrition Risks: No Nutritional Risk Patient : No : No Poor oral hygiene: No service: No Current occupational status: retired Sexual orientation: Straight/Heterosexual Meds Allergies Allergy/AdvReac Type Severity Reaction Status Date / Time amoxicillin AdvReac Hives Verified 08/18/22 15:48 cefpodoxime [From Vantin] AdvReac Hives Verified 08/18/22 15:48 erythromycin base AdvReac Unknown Verified 08/18/22 15:48 Active Medications: Current Medications Acetaminophen (Acetaminophen 325 Mg Tablet) 650 mg PO Q6H PRN PRN Reason: Headache/Pain Mild Scale (1-3) Last Admin: 08/29/22 10:13 Dose: 650 mg Al Hydroxide/Mg Hydroxide (Magnesium Hydrox/Alum Hydrox 30 Ml Oral.Susp) 30 ml PO Q6H PRN PRN Reason: Heartburn/Nausea Amlodipine Besylate (Amlodipine Besylate 10 Mg Tablet) 10 mg PO DAILY [facility]; Protocol Last Admin: 08/30/22 09:27 Dose: 10 mg Benzocaine (Throat Lozenge, Medicated Lozenge) 1 lozenge MUCOUS MEM Q2H PRN PRN Reason: Sore Throat Donepezil HCl (Donepezil Hcl 10 Mg Tablet) 10 mg PO BEDTIME [facility] Last Admin: 08/29/22 20:31 Dose: 10 mg Doxycycline Monohydrate (Doxycycline Monohydrate 100 Mg Capsule) 100 mg PO Q12H [facility] Stop: 09/05/22 23:00 Last Admin: 08/30/22 14:06 Dose: 100 mg Fluticasone/Vilanterol (Fluticasone/Vilanterol 200/25 Blst.W.Dev) 1 puff INHALE RDAILY [facility] Guaifenesin (Guaifenesin La 600 Mg Tab.Er.12h) 600 mg PO BID [facility] Last Admin: 08/30/22 11:12 Dose: 600 mg Lidocaine/Diphenhydr/Alum/Mg/Simeth (Mag&Al/Sim/Diphenhyd/Lidocaine 10 Ml Oral.Susp) 10 ml PO Q4H PRN; Protocol PRN Reason: mouth sores pain Lisinopril (Lisinopril 10 Mg Tablet) 10 mg PO BEDTIME [facility]; Protocol Last Admin: 08/29/22 20:31 Dose: 10 mg Loratadine (Loratadine 10 Mg Tablet) 10 mg PO DAILY [facility] Last Admin: 08/30/22 11:12 Dose: 10 mg Magnesium Hydroxide (Milk Of Magnesia 30 Ml Oral.Susp) 30 ml PO DAILY PRN PRN Reason: Constipation Olanzapine (Olanzapine 5 Mg Tablet) 5 mg PO BEDTIME [facility] Last Admin: 08/29/22 20:31 Dose: 5 mg Omeprazole (Omeprazole 20 Mg Capsule.Dr) 20 mg PO DAILY [facility] Last Admin: 08/30/22 09:27 Dose: 20 mg Trazodone HCl (Trazodone Hcl 50 Mg Tablet) 50 mg PO BEDTIME PRN PRN Reason: Insomnia Home Medications Medication Instructions Recorded Confirmed Last Taken Type omeprazole magnesium 20 mg 20 mg PO DAILY 08/07/22 08/18/22 08/14/22 History tablet,delayed release (Prilosec OTC) Physical Exam Vital Signs: Vital Signs: Last Vital Signs Temp 98.2 F 08/30/22 09:15 Pulse 87 08/30/22 13:00 Resp 20 08/30/22 13:00 BP 107/54 L 08/30/22 09:15 Pulse Ox 94 08/30/22 13:00 O2 Del Method 08/30/22 13:00 O2 Flow Rate 2 08/30/22 13:00 BMI result Body Mass Index 30.8 Const: General: comfortable; No acute distress HEENT: Head: Yes normocephalic Neck: Neck: Yes supple Chest: Chest palpation & inspection: normal inspection of the chest Resp: Effort & Inspection: normal respiratory effort Auscultation: crackles on the left and diminished lung sounds Cardio: Rate: regular rate Rhythm: regular rhythm Heart sounds: S1 normal heart sound present and S2 normal heart sound present GI: Palpation (GI): Soft to palpation Skin: General skin exam: no rashes or lesions noted Extrem: General: Yes no clubbing, cyanosis or edema Results Laboratory Findings 08/22/22 18:58 08/22/22 17:42 Abnormal lab findings: Abnormal Labs 08/18/22 08/22/22 08/22/22 17:12 17:42 18:58 RBC 3.68 L Hgb 10.8 L Hct 32.6 L Plt Count 121 L BUN 31 H C-Reactive Protein 11.90 H COVID-19 (J LUIS) Positive A Microbiology: Microbiology 08/22/22 18:58 Blood - Venous Blood Culture - Final No growth after 5 days. 08/22/22 18:58 Blood - Venous Blood Culture - Final No growth after 5 days. Assessment and Plan (1) COVID: Status: Acute (2) Acute respiratory failure: Status: Acute (3) Pneumonia: Status: Acute Plan Titrate oxygen at 2 L to maintain a pulse ox above 90% Start Breo inhaler once a day Start doxycycline x7 days Repeat chest x-ray Time Spent With Patient Time: Total time managing care of this patient today ____ minutes. Procedures Date of Service Date of Service: 08/30/22
[2022-08-30 17:00] VITALS: BP 123/70; PULSE 100; RESP 20; TEMP 36.4; O2SAT 95
[2022-08-30 19:20] VITALS: BP 113/73; PULSE 100; RESP 20; TEMP 36.1; O2SAT 95
[2022-08-30] MEDS: lisinopriL 10 MG TABLET PO (20:23)
[2022-08-30] MEDS: OLANZapine 5 MG TABLET PO (20:24)
[2022-08-30] MEDS: Donepezil HCl 10 MG TABLET PO (20:24)
[2022-08-31] VITALS (7 sets, daily range): BP systolic 111–146; BP diastolic 56–71; PULSE 100–108; RESP 20–22; TEMP 36.9–37.2; O2SAT 92–95
[2022-08-31] MEDS: Doxycycline Monohydrate 100 MG CAPSULE PO ×2 (01:18→16:07)
[2022-08-31] MEDS: amLODIPine Besylate 10 MG TABLET PO (09:58)
[2022-08-31] MEDS: Loratadine 10 MG TABLET PO (09:58)
[2022-08-31] MEDS: Fluticasone/Vilanterol 200/25 BLST.W.DEV 1 PUFF INHALE (09:58)
[2022-08-31] MEDS: Omeprazole 20 MG CAPSULE.DR PO (09:58)
[2022-08-31] MEDS: guaiFENesin LA 600 MG TAB.ER.12H PO ×2 (09:58→19:57)
--- NOTE | 2022-08-31 15:35 | P.PNPSI_ITS ---
Subjective Subjective Date of Service: 08/31/22 Reason For Visit: depression Interim History: met with patient; discussed with nursing pt says she's breathing much better; she's feeling tired recovering from pneumonia and wants to sleep; regarding mood she says it does not matter much when you're sleeping so much. Mental Status Exam Mental Status Exam Narrative: Alert, oriented; Pt wearing hospital gown, lying in bed; She reports feeling tired. No SI/HI. No overt psychosis or delusions. Speech is clear, regular rate, spontaneous. TP: some derailment. Insight/judgment: impaired x 2. Diagnostics Vital Signs (24Hr): Vital Signs - 24 hr 08/30/22 17:00 08/30/22 19:20 08/31/22 00:00 Temperature 97.6 F 97.0 F Pulse Rate 100 100 Respiratory Rate 20 20 Blood Pressure 123/70 113/73 Pulse Oximetry 95 95 94 Oxygen Delivery Method Room Air Room Air Nasal Cannula Oxygen Flow Rate 2 08/31/22 04:00 08/31/22 10:00 08/31/22 10:15 Temperature 98.5 F Pulse Rate 107 H Respiratory Rate 22 H Blood Pressure 146/71 H Pulse Oximetry 93 94 92 Oxygen Delivery Method Nasal Cannula Nasal Cannula Room Air Oxygen Flow Rate 2 2 08/31/22 12:25 Temperature 98.5 F Pulse Rate 108 H Respiratory Rate 20 Blood Pressure 114/56 L Pulse Oximetry 94 Oxygen Delivery Method Room Air Oxygen Flow Rate BMI result Body Mass Index 30.8 Labs 08/22/22 18:58 08/22/22 17:42 Imaging Radiology Impressions: ITS Impressions Chest X-Ray 08/23/22 09:50 IMPRESSION: Bronchial wall thickening may be infectious and/or inflammatory in etiology. Chest X-Ray 08/30/22 14:00 IMPRESSION: Patchy multifocal left parenchymal airspace opacities suspicious for multifocal infection or aspiration, alternatively asymmetric edema. Recommend follow-up radiographs to ensure resolution. Medications Medications Current Medications Acetaminophen (Acetaminophen 325 Mg Tablet) 650 mg PO Q6H PRN PRN Reason: Headache/Pain Mild Scale (1-3) Last Admin: 08/29/22 10:13 Dose: 650 mg Al Hydroxide/Mg Hydroxide (Magnesium Hydrox/Alum Hydrox 30 Ml Oral.Susp) 30 ml PO Q6H PRN PRN Reason: Heartburn/Nausea Amlodipine Besylate (Amlodipine Besylate 10 Mg Tablet) 10 mg PO DAILY [facility]; Protocol Last Admin: 08/31/22 09:58 Dose: 10 mg Benzocaine (Throat Lozenge, Medicated Lozenge) 1 lozenge MUCOUS MEM Q2H PRN PRN Reason: Sore Throat Donepezil HCl (Donepezil Hcl 10 Mg Tablet) 10 mg PO BEDTIME [facility] Last Admin: 08/30/22 20:24 Dose: 10 mg Doxycycline Monohydrate (Doxycycline Monohydrate 100 Mg Capsule) 100 mg PO Q12H [facility] Stop: 09/05/22 23:00 Last Admin: 08/31/22 01:18 Dose: 100 mg Fluticasone/Vilanterol (Fluticasone/Vilanterol 200/25 Blst.W.Dev) 1 puff INHALE RDAILY [facility] Last Admin: 08/31/22 09:58 Dose: 1 puff Guaifenesin (Guaifenesin La 600 Mg Tab.Er.12h) 600 mg PO BID [facility] Last Admin: 08/31/22 09:58 Dose: 600 mg Lidocaine/Diphenhydr/Alum/Mg/Simeth (Mag&Al/Sim/Diphenhyd/Lidocaine 10 Ml Oral.Susp) 10 ml PO Q4H PRN; Protocol PRN Reason: mouth sores pain Lisinopril (Lisinopril 10 Mg Tablet) 10 mg PO BEDTIME [facility]; Protocol Last Admin: 08/30/22 20:23 Dose: 10 mg Loratadine (Loratadine 10 Mg Tablet) 10 mg PO DAILY [facility] Last Admin: 08/31/22 09:58 Dose: 10 mg Magnesium Hydroxide (Milk Of Magnesia 30 Ml Oral.Susp) 30 ml PO DAILY PRN PRN Reason: Constipation Olanzapine (Olanzapine 5 Mg Tablet) 5 mg PO BEDTIME [facility] Last Admin: 08/30/22 20:24 Dose: 5 mg Omeprazole (Omeprazole 20 Mg Capsule.Dr) 20 mg PO DAILY [facility] Last Admin: 08/31/22 09:58 Dose: 20 mg Trazodone HCl (Trazodone Hcl 50 Mg Tablet) 50 mg PO BEDTIME PRN PRN Reason: Insomnia Allergies Allergies Allergy/AdvReac Type Severity Reaction Status Date / Time amoxicillin AdvReac Hives Verified 08/18/22 15:48 cefpodoxime [From Vantin] AdvReac Hives Verified 08/18/22 15:48 erythromycin base AdvReac Unknown Verified 08/18/22 15:48 Assessment & Plan Assessment & Plan (1) Dementia with mood disturbance: Status: Acute Code(s): F03.93 - Unspecified dementia, unspecified severity, with mood disturbance Plan 08/30 continue treatment. Pulmonology consult ordered and pt seen Titrate oxygen at 2 L to maintain a pulse ox above 90% Start Breo inhaler once a day Start doxycycline x7 days Repeat chest x-ray 08/31 pt doing better; 94% on RA; continue abx Patient educated on: medical condition Informed Consent: understands Reason for contiued inpatient stay Substantial Risk for: rapid decompensation Time Spent With Patient Time: Total time managing care of this patient today ____ minutes.
[2022-08-31] MEDS: OLANZapine 5 MG TABLET PO (19:56)
[2022-08-31] MEDS: lisinopriL 10 MG TABLET PO (19:57)
[2022-08-31] MEDS: Donepezil HCl 10 MG TABLET PO (19:57)
[2022-09-01 00:14] VITALS: O2SAT 90
[2022-09-01] MEDS: Doxycycline Monohydrate 100 MG CAPSULE PO (00:59)
[2022-09-01 04:00] VITALS: O2SAT 93
--- NOTE | 2022-09-01 09:13 | PC.NURSE ---
Addendum entered by Dorothy Tsai RN 09/01/22 09:30: Pt. with pulse and respirations but unresponsive for approx. 2 minutes, then responsive to voice. Original Note: Pt. assisted to toilet 0945. Pt. voided on toilet and wiped herself. While this selling underwriter kneeling on floor assisting pt. to don clean pull up she slumped over onto this selling underwriter. She was assisted gently to the floor on her side between the toilet. Rapid response called 0950. 0953 O2 sat 78 RA. vs p 115 BP 132/75. Non rebreather applied 25 lpm and O2 sat improved to 98%. 0958 pt. assisted off of floor and onto bed. 0959 VS BP 143/64 p 118 02 sat 99% NRB. POC glucose 97. O2 turned down to 154 lpm. Pt transferred to stretcher at 0907 and left unit 0910. Pt to ED for testing then to be admitted to [facility].
[2022-09-01 09:14] LABS: Glucose, Whole Blood 97 mg/dL (60-115)
[2022-09-01 09:19] LABS: Glucose, Whole Blood 106 mg/dL (60-115)
--- NOTE | 2022-09-01 09:26 | PM.PSYDC ---
DS: Providers Provider Date of Service: 09/01/22 Date of admission: 08/18/22 12:11 Date of discharge: 09/01/22 Primary care physician: Unknown Physician Admitting clinician: Harvey Pat Consults: 08/18/22 18:08 Consult to Hospitalist Routine Consulting Provider: Hospitalist Reason For Exam: COVID POS. please eval and rec mgmt. 08/22/22 10:58 Consult to Hospitalist Routine Consulting Provider: Hospitalist Reason For Exam: Fever 104, covid positive, uti w/ATB, looks septic 08/24/22 10:21 Consult to Hospitalist Routine Consulting Provider: Hospitalist Reason For Exam: see cxr desat o2 getting 4 l nasal canula 08/30/22 10:54 Consult to Pulmonology Routine Consulting Provider: [facility] [place] Pulmonology Services Reason for consultation: desat, on 2l post covid Has provider been notified: Yes Attending physician on discharge: Dieudonne Rivera DS: Diagnosis Discharge Diagnosis (1) Dementia with mood disturbance: Status: Acute DS: Medications Discharge Medications Home Medications: Home Medications Medication Instructions Recorded Confirmed omeprazole magnesium 20 mg 20 mg PO DAILY 08/07/22 08/18/22 tablet,delayed release (Prilosec OTC) Previous Rx's Medication Instructions Recorded amlodipine 10 mg tablet 10 mg PO DAILY #7 tabs 08/15/22 donepezil 10 mg tablet 10 mg PO BEDTIME #7 tabs 08/15/22 lisinopril 10 mg tablet 10 mg PO BEDTIME #7 tabs 08/15/22 olanzapine 5 mg tablet 5 mg PO BEDTIME #7 tabs 08/15/22 trazodone 50 mg tablet 50 mg PO BEDTIME MRX1 PRN Insomnia 08/15/22 #7 tabs cefuroxime axetil 500 mg tablet 500 mg PO BID 7 days #14 tabs 08/16/22 Mag&Al/Sim/Diphenhyd/Lidocaine 10 ml PO Q4H PRN ##0 09/01/22 [Magic Mouthwash] doxycycline monohydrate 100 mg 100 mg PO Q12H #0 caps 09/01/22 capsule fluticasone furoate 200 1 ea inhalation RDAILY #0 ea 09/01/22 mcg-vilanterol 25 mcg/dose inhalation powder (Breo Ellipta) guaifenesin 600 mg tablet, 600 mg PO BID #0 tabs 09/01/22 extended release 12 hr (Mucinex) loratadine 10 mg tablet 10 mg PO DAILY #0 tabs 09/01/22 Mental Status Exam Mental Status Exam Narrative: deferred; sent to medical floor Data Data Completed and Pending Completed studies during hospitalization [Text1]: 09/01/22 09/01/22 08:59 09:17 POC Glucose 97 106 08/22/22 18:58 Blood - Venous Blood Culture - Final No growth after 5 days. 08/22/22 18:58 Blood - Venous Blood Culture - Final No growth after 5 days. Imaging Diagnostic Imaging Impressions Chest X-Ray 08/23/22 09:50 IMPRESSION: Bronchial wall thickening may be infectious and/or inflammatory in etiology. Chest X-Ray 08/30/22 14:00 IMPRESSION: Patchy multifocal left parenchymal airspace opacities suspicious for multifocal infection or aspiration, alternatively asymmetric edema. Recommend follow-up radiographs to ensure resolution. DS: Summary Hospital Course Hospital Course: Admitted for Dementia aquired covid, pneumonia; was recovering then decompensated and transferred to medical floor Status at Discharge Functional status at discharge: bed bound Overall status at discharge: patient is not back to baseline Time Spent with Patient Time attestation: Total time managing care of this patient today ____ minutes. Time spent: Less than 30 minutes Discharge Plan Discharge Anticipated Discharge Date/Time: 09/01/22 09:28 Disposition: Xfer Other Referrals: [facility] [Other] - 1 Week (Your social scientist Dianna Curran to follow up with you following discharge. ) Physician,Unknown J [Primary Care Provider] - 1 Week Discharge Medications: New doxycycline monohydrate 100 mg Capsule 100 mg PO Q12H Qty: 0 0RF loratadine 10 mg Tablet 10 mg PO DAILY Qty: 0 0RF fluticasone furoate-vilanterol [Breo Ellipta] 200-25 mcg/dose Blister With Device 1 ea inhalation RDAILY Qty: 0 0RF guaifenesin [Mucinex] 600 mg Tablet Extended Release 12hr 600 mg PO BID Qty: 0 0RF Mag&Al/Sim/Diphenhyd/Lidocaine [Magic Mouthwash] 10 ml PO Q4H PRNQty: 0 0RF Continued cefuroxime axetil 500 mg tablet 500 mg PO BID 7 Days Qty: 14 0RF Rx Instructions: Doctor's Order omeprazole magnesium [Prilosec OTC] 20 mg Tablet,Delayed Release (Dr/Ec) 20 mg PO DAILY trazodone 50 mg Tablet 50 mg PO BEDTIME MRX1 PRN (Reason: Insomnia) Qty: 7 0RF donepezil 10 mg Tablet 10 mg PO BEDTIME Qty: 7 0RF Rx Instructions: next dose 08/18/22 HS olanzapine 5 mg Tablet 5 mg PO BEDTIME Qty: 7 0RF amlodipine 10 mg Tablet 10 mg PO DAILY Qty: 7 0RF Protocol: Hold for SBP< HOLD for SBP < : 90 lisinopril 10 mg Tablet 10 mg PO BEDTIME Qty: 7 0RF Protocol: Hold for SBP< HOLD for SBP < : 90 Discontinued acetaminophen 325 mg Tablet 650 mg PO Q6H PRN (Reason: Headache/Pain Mild Scale (1-3)) Qty: 7 0RF Discharge Orders: Discharge Order (Routine); Ordered 09/01/22 Ordered By: Dieudonne Rivera Forms: Patient Portal Discharge page, Community Support Care Plan Goals: transferred to medical floor Health Concerns: transferred to medical floor Plan of Treatment: transferred to medical floor Assessment: transferred to medical floor
[2022-09-01] MEDS: iohexoL 350 MG/ML 100 ML INFUS..BTL 65 ML IV (10:15)
== END 2022-09-01 09:31 | disposition other institution (70) | DRG 884 ==
PROVIDERS: Psychiatry & Neurology Psychiatry; Student in an Organized Health Care Education/Training Program; Admitting Provider Psychiatry & Neurology Psychiatry; Visit Provider Psychiatry & Neurology Psychiatry
DX: F03.93 Unspecified dementia, unspecified severity, with mood disturbance (principal); U07.1 COVID-19; J96.01 Acute respiratory failure with hypoxia; N39.0 Urinary tract infection, site not specified; K21.9 Gastro-esophageal reflux disease without esophagitis; Z87.891 Personal history of nicotine dependence; Z88.0 Allergy status to penicillin; Z88.1 Allergy status to other antibiotic agents; Z79.01 Long term (current) use of anticoagulants; Z79.899 Other long term (current) drug therapy
CPT/HCPCS: 36415; 70450; 71046; 71275; 80048; 82947; 84145; 85027; 86140; 87040; 87635; Q9967

== ENCOUNTER 2022-09-01 09:36 | Inpatient (IN) | payer MEDICARE, BC, SELFPAY ==
[2022-09-01 10:20] VITALS: BMI 28.6
[2022-09-01 10:37] VITALS: BP 147/78; PULSE 105; RESP 20; TEMP 36.8; O2SAT 96
[2022-09-01 11:05] LABS: Hematocrit 36.3 % (37.0-47.0); Hemoglobin 11.9 g/dl (12.0-16.0); Mean Corpuscular HGB Conc 32.8 g/dl (31.0-35.0); Mean Corpuscular Volume 88.5 fL (80.0-98.0); Mean Platelet Volume 10.7 fL (9.4-12.3); Platelet Count 147 X10*3/uL (160-400); Red Cell Distribution Width 12.9 % (11.0-16.0); White Blood Count 8.8 X10*3/uL (4.8-10.8)
[2022-09-01 11:20] LABS: Alanine Aminotransferase 15 U/L (0-31); Albumin Level 3.2 g/dL (3.5-5.0); Alkaline Phosphatase 47 U/L (39-117); Anion Gap 14 (12-20); Aspartate Amino Transferase 24 U/L (5-31); Bilirubin Total 1.4 mg/dL (0.0-1.0); Blood Urea Nitrogen 23 mg/dL (9-16); C Reactive Protein 11.36 mg/dL (< or = 0.50); Calcium 8.1 mg/dL (8.4-10.2); Carbon Dioxide 26 mmol/L (22-29); Chloride 100 mmol/L (96-108); Estimated Glomerular Filt Rate 55; Glucose Random 99 mg/dL (60-115); Potassium 3.3 mmol/L (3.3-5.1); Sodium 137 mmol/L (135-145); Total Protein 5.8 g/dL (6.5-8.0)
[2022-09-01 11:34] LABS: Procalcitonin 0.05 ng/mL
[2022-09-01 11:44] VITALS: BP 131/55; PULSE 126; RESP 20; TEMP 36.7; O2SAT 96
[2022-09-01] MEDS: Apixaban 5 MG TABLET 10 MG PO ×2 (12:20→22:14)
[2022-09-01] MEDS: cefTRIAXone sodium 1 GM in 0.9 % Sodium Chloride 50 ML IV (12:29)
--- NOTE | 2022-09-01 13:07 | PM.IMHP ---
History of Present Illness Date of Service: 09/01/22 Chief Complaint: syncope 87yo F sent in from outside hospital for visual hallucinations and disorganized thought process with paranoia. Admitted to [facility] on 08/07. Minimal medical history except for GERD, former tobacco abuse, and prior surgeries [appendectomy, cholecystectomy, oopherectomy]. Seen by hospitalist 08/07/22 and started on anithypertensive therapies. Found unresponsive on 08/15/22 and admitted to the hospitalist service. Treated empirically with ceftriaxone/cefuroxime for possible UTI. No seizure activity demonstrated. Transferred back to [facility] on 08/16/22. Tested positive for Covid-19 on 08/18/22 and hospitalist consulted 08/22/22 for concern of fever to 104 and confussion. History of confusion + hallucinations with UTI. Not hypoxic. CXR then showed bronchial wall thickening. Hospitalist on 08/24/22 noted she had desaturation to high 80s and was treated with 5 days of prednisone and 5 days of levofloxacin. Afterwards, still remained on O2 2L so Pulmonary was consulted on 08/30 [Dr Woods]. CXR showed multifocal infiltrates. She was started on doxycycline and Breo inhaler. She was weaned off O2 yesterday. Today, she was on the toilet when she lost consiousness and slumped to the ground. No head trauma. She was out for approximately 1.5 minutes and slowly came to. [employer] was called.No facial droop or focal weakness noted. She was found to be hypoxic to the low 80s and placed on NRB. She was sent to the ED for IV acess and a CT of the head, which showed no acute disease. However, CT angio of the chest showed multiple pulmonary emboli in a background of multifocal infiltrates. She currently denies any lightheadedness, dizziness, dyspnea, cough, or chest pain. She is maintaining SaO2 of 96% on 2L O2 via NC. Review of Systems Review of Systems: Yes all other systems are reviewed and are negative [facility] Medical History (Updated 09/01/22 @ 13:19 by Dragan Jackson MD) Acid reflux HTN (hypertension) Surgical History (Updated 09/01/22 @ 13:17 by Dragan Jackson MD) History of appendectomy History of bilateral oophorectomy History of cholecystectomy Social History Household Members: None Housing: Other Housing Other:: mobile home Do you presently have visiting nurse or other home services: No Patient Tobacco Use Status: Former Tobacco user Quit Date: 55 years ago Tobacco use type: Cigarette e-Cigarette/Vaping Use: Never Used Second Hand Smoke Exposure: No Use of substances other than those prescribed or required for medical reasons: No Have you been hit, kicked, punched, or otherwise hurt by someone within the past year? If so, by whom?: No Do you feel safe in your current relationship?: Yes Is there a partner from a previous relationship who is making you feel unsafe now?: No Are you made to feel afraid or neglected: No Advance Directives: No Do you have thoughts of harming others: None Do you have a plan to hurt others: No Plan Recently lost weight without trying: Unsure Nutrition Risks: No Nutritional Risk Patient : No Poor oral hygiene: No service: No Current occupational status: retired Sexual orientation: Straight/Heterosexual Meds Allergies Allergy/AdvReac Type Severity Reaction Status Date / Time amoxicillin AdvReac Hives Verified 08/18/22 15:48 cefpodoxime [From Vantin] AdvReac Hives Verified 08/18/22 15:48 erythromycin base AdvReac Unknown Verified 08/18/22 15:48 Active Medications: Current Medications Acetaminophen (Acetaminophen 325 Mg Tablet) 650 mg PO Q6H PRN PRN Reason: Pain, Mild (Pain Scale 1-3) Apixaban (Apixaban 5 Mg Tablet) 10 mg PO BID [facility] Stop: 09/07/22 21:01 Last Admin: 09/01/22 12:20 Dose: 10 mg Apixaban (Apixaban 5 Mg Tablet) 5 mg PO BID [facility] Dexamethasone Sodium Phosphate (Dexamethasone Sod Phosphate 10 Mg/Ml Vial) 6 mg IVPUSH DAILY [facility] Stop: 09/10/22 09:01 Doxycycline Monohydrate (Doxycycline Monohydrate 100 Mg Capsule) 100 mg PO Q12H [facility] Ceftriaxone Sodium 1 gm/ (Sodium Chloride) 50 mls @ 100 mls/hr IV Q24H [facility] Last Admin: 09/01/22 12:29 Dose: 100 mls/hr Ondansetron HCl (Ondansetron Hcl 4 Mg/2 Ml Vial) 4 mg IVPUSH Q8H PRN PRN Reason: Nausea and Vomiting Sodium Chloride (0.9 % Sodium Chloride Flush 3 Ml Syringe) 3 ml IVFLUSH QSHIFT [facility] Home Medications Medication Instructions Recorded Confirmed Last Taken Type Mag&Al/Sim/Diphenhyd/Lidocaine 10 ml PO Q4H PRN Indigestion 09/01/22 09/01/22 Unknown History [Magic Mouthwash] cefuroxime axetil 500 mg tablet 500 mg PO BID 09/01/22 09/01/22 Unknown History loratadine 10 mg tablet 10 mg PO DAILY 09/01/22 09/01/22 Unknown History omeprazole 20 mg tablet,delayed 20 mg PO DAILY@0630 09/01/22 09/01/22 Unknown History release Physical Exam Vital Signs and Narrative: Vital Signs: Last Vital Signs Temp 98.1 F 09/01/22 11:44 Pulse 126 H 09/01/22 11:44 Resp 20 09/01/22 11:44 BP 131/55 L 09/01/22 11:44 Pulse Ox 96 09/01/22 11:44 O2 Del Method 09/01/22 11:44 O2 Flow Rate 1 09/01/22 11:44 BMI result Body Mass Index 28.6 Gen: in no acute distress HEENT: sclera anicteric, moist mucus membranes Neck: supple Lungs: clear to auscultation bilaterally Heart: tachycardic + regular, no murmurs Abd: soft, non-tender, non-distended Ext: no edema Skin: warm/well-perfused Neuro: alert and oriented to self but not to place [thinks she is at [facility]] or time, but knows why she was admitted to [facility] Psych: appropriate affect Results Labs 09/01/22 10:42 09/01/22 10:42 Labs: Laboratory Results - last 24 hr 09/01/22 09/01/22 10:42 10:42 MCV 88.5 MCH 29.0 MCHC 32.8 RDW 12.9 Plt Count 147 L MPV 10.7 Absolute Nucleated RBC 0.000 Nucleated RBC % (auto) 0.0 Anion Gap 14 Estim Creat Clear Calc 45.0 Estimated GFR 55 Random Glucose 99 Calcium 8.1 L Total Bilirubin 1.4 H AST 24 ALT 15 Alkaline Phosphatase 47 C-Reactive Protein 11.36 H Total Protein 5.8 L Albumin 3.2 L Procalcitonin 0.05 CTA chest 09/01/22 1. Multiple filling defects in bilateral central and peripheral pulmonary arterial vasculature compatible with pulmonary embolism. ? 2. Multifocal airspace opacities in bilateral lungs, more prominent on the left. This could reflect sequela of the pulmonary embolism, infectious/inflammatory process. Recommend follow-up imaging to ensure resolution. ? 3. Asymmetric appearing tissue in the left breast, clinically correlate. Further evaluation/imaging as clinically warranted. ? 4. Cardiomegaly. ? VTE: positive CT head 09/01/[address] evidence of acute intracranial hemorrhage or edematous territorial infarction. Assessment and Plan (1) Pulmonary embolism: Status: Acute Plan 87yo F on geriatric psychiatry unit for hallucinations and paranoia who suffered her 2nd episode of LOC, for which [employer] was called. She was recently treated with cefuroxime for UTI, and levofloxacin then doxycycline for post-Covid PNA with the Covid-19 having been diagnosed on 08/18/22. She was weaned off O2 yesterday but then today is hypoxic and is found to have bilateral PE # bilateral PE - apixaban 10 mg bid x7d then 5 mg bid # [id number] PNA - d/c isolation precautions as she is on d#15 of illness. will give ceftriaxone + doxycycline and 10d of dexamethasone. # acute hypoxic resp failure - due to above; wean O2 - also workup for HF- TTE, BNP # HTN - amlodipine, lisinopril # asymmetric L breast - outpt mammography # dementia with mood disturbance - donepezil, olanzapine, trazodone # VTE ppx: apixaban as above # dispo: TBD I anticipate that the patient will stay at least 2 midnights as an inpatient in the hospital due to the above reasons. It is neither reasonable nor safe to care for them in a less acute setting. Time Spent With Patient Time: Total time managing care of this patient today ____ minutes. Quality Stroke Does the patient have a stroke diagnosis?: No VTE Prior VTE?: No VTE Risk Level:: Medical - moderate - high VTE Device Contraindication: N/A - Device Ordered VTE Drug Contraindication: N/A - Med Ordered
[2022-09-01] MEDS: Doxycycline Monohydrate 100 MG CAPSULE PO (13:14)
--- NOTE | 2022-09-01 13:28 | PHA.MEDREC ---
Addendum entered by Nora Peng [facility] 09/01/22 13:39: PT WAS TRANSFERRED FROM [facility] Original Note: Pharmacy Consult ? Medication Reconciliation Pharmacy has completed the medication reconciliation.
[2022-09-01] MEDS: 0.9 % Sodium Chloride Flush 3 ML SYRINGE IVFLUSH ×2 (15:49→22:17)
[2022-09-01] MEDS: dexAMETHasone sod phosphate 10 MG/ML VIAL 6 MG IVPUSH (15:49)
[2022-09-01 16:00] VITALS: BP 137/76; PULSE 68; RESP 18; TEMP 37.2; O2SAT 97
[2022-09-01 20:00] VITALS: BP 131/68; PULSE 101; TEMP 37; O2SAT 97
[2022-09-01] MEDS: guaiFENesin LA 600 MG TAB.ER.12H PO (22:14)
[2022-09-01] MEDS: Donepezil HCl 10 MG TABLET PO (22:15)
[2022-09-01] MEDS: OLANZapine 5 MG TABLET PO (22:15)
[2022-09-02] VITALS (11 sets, daily range): BP systolic 113–152; BP diastolic 52–71; PULSE 77–105; RESP 16–20; TEMP 35.6–37; O2SAT 92–97
[2022-09-02] MEDS: Doxycycline Monohydrate 100 MG CAPSULE PO ×2 (00:15→13:06)
[2022-09-02 06:42] LABS: MANUAL DIFF FLAG NO
[2022-09-02 06:55] LABS: Hematocrit 32.3 % (37.0-47.0); Hemoglobin 10.5 g/dl (12.0-16.0); Imm Gran Abs Auto 0.08 X10*3/uL (0.00-0.03); Imm Gran Pct Auto 1.2 % (0.0-0.4); Lymphocytes Absolute Auto 0.7 X10*3/uL (1.2-4.9); Lymphocytes Percent Auto 9.6 % (20-40); Mean Corpuscular HGB Conc 32.5 g/dl (31.0-35.0); Mean Corpuscular Hemoglobin 28.8 pg (27.0-33.0); Mean Corpuscular Volume 88.5 fL (80.0-98.0); Mean Platelet Volume 10.7 fL (9.4-12.3); Monocytes Absolute Auto 0.4 X10*3/uL (0.1-1.2); Monocytes Percent Auto 5.3 % (2-11); Neutrophils Absolute Auto 5.7 x10*3/uL (2.0-8.3); Neutrophils Percent Auto 83.9 % (45-73); Platelet Count 116 X10*3/uL (160-400); Red Blood Count 3.65 X10*6/uL (4.20-5.50); Red Cell Distribution Width 12.9 % (11.0-16.0); White Blood Count 6.8 X10*3/uL (4.8-10.8)
[2022-09-02 07:15] LABS: B Type Natriuretic Peptide 214 pg/mL (<100)
[2022-09-02] MEDS: 0.9 % Sodium Chloride Flush 3 ML SYRINGE IVFLUSH ×2 (09:17→16:03)
[2022-09-02] MEDS: dexAMETHasone sod phosphate 10 MG/ML VIAL 6 MG IVPUSH (09:17)
[2022-09-02] MEDS: amLODIPine Besylate 10 MG TABLET PO (09:17)
[2022-09-02] MEDS: Loratadine 10 MG TABLET PO (09:18)
[2022-09-02] MEDS: Apixaban 5 MG TABLET 10 MG PO ×2 (09:18→20:22)
[2022-09-02] MEDS: guaiFENesin LA 600 MG TAB.ER.12H PO ×2 (09:18→20:22)
--- NOTE | 2022-09-02 10:42 | MHC.CM.PN ---
Addendum entered by Ghada Newman RN 09/02/22 10:49: PER ENEDINA PT IS ANTIVAXER SO HAS NOT RECEIVED ANY COVID VACCINES. Original Note: EMR REVIEWED, CM CONTACTED PT'S SON/HCP ENEDINA AT 9:45AM TO DELIVER IMM AND COMPLETE ASSESSMENT PT HAS COVID 19/HALLUCINATIONS/?DEMENTIA, ENEDINA REPORTS HE IS HCP AND PT COMPLETED WHILE HERE AT [facility], PT IS STILL LIVING ALONE, HAS CANE/WALKER, MOBILE HOME IS ALMOST FINISHED BEING RENOVATED AND IS FULLY HANDICAPPED ACCESSIBLE, ENEDINA REPORTS HE IS UNSURE IF SHE'LL BE ABLE TO RETURN HOME AND LIVE ON HER OWN HOWEVER PT IS UNABLE TO LIVE W/EITHER SONS AND SONS ARE UNABLE TO LIVE W/HER. ENEDINA ALSO REPORTS THAT PT STILL HAS NEW [facility] MEDICARE AND HAS BEEN DECLINING TO CHANGE IT EVEN THOUGH SHE MEANT W/[facility] FOR ASSISTANCE, PT DOES NOT HAVE [employer] AND SON ENEDINA UNSURE IF SHE WOULD QUALIFY. HCP IS ON FILE AND [facility] SON ENEDINA [phone] AND ALTERNATE IS ROCÍO [phone], PT DOES NOT HAVE CURRENT PCP.
--- NOTE | 2022-09-02 10:50 | HO.PM.IMPN ---
Subjective Subjective Date of Service: 09/02/22 Interval History: coughing with mucus less dyspnea no chest pain no fever no lightheadedness or syncope Review of Systems Review of Systems: Yes all other systems are reviewed and are negative Physical Exam Vital Signs: Vital Signs: Last Vital Signs Temp 97.0 F 09/02/22 08:00 Pulse 90 09/02/22 08:00 Resp 18 09/02/22 08:00 BP 135/62 09/02/22 08:00 Pulse Ox 96 09/02/22 08:00 O2 Del Method 09/02/22 08:00 O2 Flow Rate 1.0 09/02/22 08:00 BMI result Body Mass Index 28.6 Gen: in no acute distress HEENT: sclera anicteric, moist mucus membranes Neck: supple Lungs: coarse crackles bilateral bases on inspiration Heart: regular, no murmurs Abd: soft, non-tender, non-distended Ext: no edema Skin: warm/well-perfused Neuro: alert, no focal findings Psych: appropriate affect Objective Data Active Medications Acetaminophen (Acetaminophen 325 Mg Tablet) 650 mg PO Q6H PRN PRN Reason: Pain, Mild (Pain Scale 1-3) Albuterol Sulfate (Albuterol Sulfate (0.083%) 2.5 Mg/3 Ml Vial.Neb) 2.5 mg INHALE Q2H PRN PRN Reason: Shortness of Breath/Wheezing Amlodipine Besylate (Amlodipine Besylate 10 Mg Tablet) 10 mg PO DAILY [facility]; Protocol Last Admin: 09/02/22 09:17 Dose: 10 mg Documented By: OSCAR Apixaban (Apixaban 5 Mg Tablet) 10 mg PO BID [facility] Stop: 09/07/22 21:01 Last Admin: 09/02/22 09:18 Dose: 10 mg Documented By: OSCAR Apixaban (Apixaban 5 Mg Tablet) 5 mg PO BID [facility] Dexamethasone Sodium Phosphate (Dexamethasone Sod Phosphate 10 Mg/Ml Vial) 6 mg IVPUSH DAILY [facility] Stop: 09/10/22 09:01 Last Admin: 09/02/22 09:17 Dose: 6 mg Documented By: OSCAR Donepezil HCl (Donepezil Hcl 10 Mg Tablet) 10 mg PO BEDTIME [facility] Last Admin: 09/01/22 22:15 Dose: 10 mg Documented By: KORINA Doxycycline Monohydrate (Doxycycline Monohydrate 100 Mg Capsule) 100 mg PO Q12H [facility] Last Admin: 09/02/22 00:15 Dose: 100 mg Documented By: KORINA Fluticasone/Vilanterol (Fluticasone/Vilanterol 100/25 Blst.W.Dev) 1 puff INHALE RDAILY [facility] Last Admin: 09/02/22 07:53 Dose: Not Given Documented By: JETHRO Non-Admin Reason: Patient Asleep Guaifenesin (Guaifenesin La 600 Mg Tab.Er.12h) 600 mg PO BID [facility] Last Admin: 09/02/22 09:18 Dose: 600 mg Documented By: OSCAR Ceftriaxone Sodium 1 gm/ (Sodium Chloride) 50 mls @ 100 mls/hr IV Q24H [facility] Last Infusion: 09/01/22 13:18 Dose: 0 mls/hr Documented By: OSCAR Loratadine (Loratadine 10 Mg Tablet) 10 mg PO DAILY [facility] Last Admin: 09/02/22 09:18 Dose: 10 mg Documented By: OSCAR Olanzapine (Olanzapine 5 Mg Tablet) 5 mg PO BEDTIME [facility] Last Admin: 09/01/22 22:15 Dose: 5 mg Documented By: KORINA Ondansetron HCl (Ondansetron Hcl 4 Mg/2 Ml Vial) 4 mg IVPUSH Q8H PRN PRN Reason: Nausea and Vomiting Sodium Chloride (0.9 % Sodium Chloride Flush 3 Ml Syringe) 3 ml IVFLUSH QSHIFT [facility] Last Admin: 09/02/22 09:17 Dose: 3 ml Documented By: OSCAR Trazodone HCl (Trazodone Hcl 50 Mg Tablet) 50 mg PO BEDTIME PRN PRN Reason: insomnia Labs 09/02/22 06:27 09/01/22 10:42 Labs: Laboratory Results - last 24 hr 09/01/22 09/01/22 09/02/22 10:42 10:42 06:27 MCV 88.5 88.5 MCH 29.0 28.8 MCHC 32.8 32.5 RDW 12.9 12.9 Plt Count 147 L 116 L MPV 10.7 10.7 Immature Gran % (Auto) 1.2 H Neut % (Auto) 83.9 H Lymph % (Auto) 9.6 L [place] % (Auto) 5.3 Eos % (Auto) 0.0 Baso % (Auto) 0.0 Lymph # (Auto) 0.7 L [place] # (Auto) 0.4 Eos # (Auto) 0.0 Baso # (Auto) 0.0 Abs Immat Gran (auto) 0.08 H Absolute Neuts (auto) 5.7 Absolute Nucleated RBC 0.000 0.000 Nucleated RBC % (auto) 0.0 0.0 Anion Gap 14 Estim Creat Clear Calc 45.0 Estimated GFR 55 Random Glucose 99 Calcium 8.1 L Total Bilirubin 1.4 H AST 24 ALT 15 Alkaline Phosphatase 47 C-Reactive Protein 11.36 H B-Natriuretic Peptide Total Protein 5.8 L Albumin 3.2 L Procalcitonin 0.05 09/02/22 06:27 MCV MCH MCHC RDW Plt Count MPV Immature Gran % (Auto) Neut % (Auto) Lymph % (Auto) [place] % (Auto) Eos % (Auto) Baso % (Auto) Lymph # (Auto) [place] # (Auto) Eos # (Auto) Baso # (Auto) Abs Immat Gran (auto) Absolute Neuts (auto) Absolute Nucleated RBC Nucleated RBC % (auto) Anion Gap Estim Creat Clear Calc Estimated GFR Random Glucose Calcium Total Bilirubin AST ALT Alkaline Phosphatase C-Reactive Protein B-Natriuretic Peptide 214 H Total Protein Albumin Procalcitonin Assessment and Plan (1) Pulmonary embolism: Status: Acute Assessment and Plan: d#2 87yo F on geriatric psychiatry unit for hallucinations and paranoia who suffered her 2nd episode of LOC, for which [facility] was called on 09/01/22.? She was recently treated with cefuroxime for UTI, and levofloxacin then doxycycline for post-Covid PNA with the Covid-19 having been diagnosed on 08/18/22. ? She was weaned off O2 08/31/22 but then was found to be hypoxic at the [facility] [facility] and then was diagnosed with acute PE # acute bilateral PE - apixaban 10 mg bid x7d then 5 mg bid, started 09/01 # [id number] PNA - d/c isolation precautions as she is on d#16 of illness.?d#2/5 of ceftriaxone + doxycycline and d#2/10 of dexamethasone - prn nebs # acute hypoxic resp failure - due to above; wean O2 - also workup for HF- TTE pending # HTN - amlodipine, lisinopril # asymmetric L breast - outpt mammography # dementia with mood disturbance - donepezil, olanzapine, trazodone # VTE ppx: apixaban as above # dispo: TBD Time Spent With Patient Time: Total time managing care of this patient today __45__ minutes. Quality Stroke Does the patient have a stroke diagnosis?: No VTE Prior VTE?: No VTE Risk Level:: Medical - moderate - high VTE Device Contraindication: N/A - Device Ordered VTE Drug Contraindication: N/A - Med Ordered
[2022-09-02 12:10] LABS: Anion Gap 15 (12-20); Blood Urea Nitrogen 23 mg/dL (9-16); Calcium 8.2 mg/dL (8.4-10.2); Carbon Dioxide 23 mmol/L (22-29); Chloride 103 mmol/L (96-108); Creatinine Clr Calc Pharmacy 53.3; Estimated Glomerular Filt Rate > 60; Glucose Random 144 mg/dL (60-115); Potassium 3.4 mmol/L (3.3-5.1); Sodium 138 mmol/L (135-145)
[2022-09-02] MEDS: cefTRIAXone sodium 1 GM in 0.9 % Sodium Chloride 50 ML IV (12:22)
[2022-09-02] MEDS: OLANZapine 5 MG TABLET PO (20:22)
[2022-09-02] MEDS: Donepezil HCl 10 MG TABLET PO (20:23)
[2022-09-03] VITALS (8 sets, daily range): BP systolic 126–175; BP diastolic 59–76; PULSE 73–120; RESP 18–20; TEMP 36.1–37; O2SAT 91–96
[2022-09-03] MEDS: 0.9 % Sodium Chloride Flush 3 ML SYRINGE IVFLUSH (02:41)
[2022-09-03] MEDS: Doxycycline Monohydrate 100 MG CAPSULE PO ×2 (02:41→11:25)
[2022-09-03] MEDS: traZODone HCL 50 MG TABLET PO (02:42)
--- NOTE | 2022-09-03 07:00 | CA_ITS ---
Transthoracic Echocardiogram Patient (Last, First, Middle): Zeny Iniguez, Gender: Female Date of : 1935 Age: 87 Procedure Date: 09/03/2022 Procedure Type: Transthoracic Echocardiogram Location: [facility] [place] Height: 167.64 cm Weight: 80.29 kg BSA: 1.90 m2 Heart Rate: 75 bpm BP: 138 / 76 mmHg Geology Teacher: SB Referring MD: Dragan Jackson MD Symptoms: cardiomegaly, hypoxia Study Quality: Adequate ECG Rhythm: Sinus Conclusions: - Mildly increased left ventricular cavity size. There is normal left ventricular wall thickness. The left ventricular systolic function is mildly decreased. The visually estimated ejection fraction is between 40-45%. - The basal inferior segment is akinetic. Findings Left Ventricle Mildly increased left ventricular cavity size. There is normal left ventricular wall thickness. The left ventricular systolic function is mildly decreased. The visually estimated ejection fraction is between 40-45%. There is evidence of regional wall motion abnormalities. Abnormal diastolic function is noted. Spectral Doppler is indicative of an impaired relaxation filling pattern. Elevated filling pressures. Reduced global longitudinal strain -12%. Wall Motion Rest Echo Findings The basal inferior segment is akinetic. Right Ventricle Normal right ventricular cavity size and systolic function. Atria The left atrium is normal in size. The right atrium is normal in size. Aortic Valve Normal aortic valve structure and function. There is mild calcification of the aortic valve. There is no aortic valve stenosis. There is mild to moderate aortic valve regurgitation. Mitral Valve There is moderate mitral annular calcification. There is no mitral valve regurgitation. There is no mitral valve stenosis. mild calcification of anterior mitral valve leaflet. Pulmonic Valve Normal pulmonic valve structure and function. There is trace pulmonic valve regurgitation. Tricuspid Valve Normal tricuspid valve structure and function. Normal right atrial pressure. There is no evidence of pulmonary hypertension. Great Vessels All visible segments of the aorta are normal in size. The visualized portions of the pulmonary artery and branches are normal. Venous The inferior vena cava is normal in size and collapses greater than 50% with inspiration. Pericardium/Pleural There is no evidence of pericardial effusion. Prior Study Comparison No prior study available for comparison. Measurements 2D Linear Measurements IVSd: 0.85 0.6-0.9/0.6-1.0 cm LVIDd: 5.34 3.9-5.3/4.2-5.9 cm LVIDd Index: 2.81 2.4-3.2/2.2-3.1 cm/m2 LVIDs: 4.33 2.0-3.6 cm LVPWd: 0.87 0.7-1.1 cm LA Diam: 4.10 2.7-3.8/3.0-4.0 cm LAIDs Index: 2.16 1.5-2.3 cm/m2 LV Mass: 207.76 67-162/88-224 g LV Mass Index: 109.35 43-95/49-115 g/m2 LVOT Diam: 2.20 3.0+(-)1.3 cm 2D Systolic Function EF 4C: 45.80 >55% EF 2C: 52.40 >55% EF BiP: 49.50 >55% Mitral Valve MV Pk E: 0.78 MV PK A: 0.90 MV Decel Time: 192.00 E/A: 0.90 E'Lateral: 5.22 E'Medial: 3.81 E/E' Med: 20.50 E/E' Lat: 14.90 PHT: 56.00 MVA PHT: 3.93 Decel [place]: 4.06 Aortic Valve AoV Pk Louie: 1.49 AoV Pk Grad: 9.00 CARLI: 2.98 AI Pk Louie: 4.60 AI [place]: 2.67 LVOT LVOT Pk Louie: 1.17 LVOT Mn Louie: 0.77 LVOT VTI: 0.24 LVOT Pk Grad: 5.00 LVOT Mn Grad: 3.00 LVOT Diam: 2.20 LVOT Area: 3.80 Diastolic Function MV Pk E: 0.78 MV Pk A: 0.90 E/A: 0.90 E'Medial: 3.81 E/E' Med: 20.50 E' Laterial: 5.22 E/E' Lat: 14.90 Right Ventricle TAPSE (mm): 22.60 TVS' Louie: 20.70 Tricuspid Valve TR Pk Louie: 2.69 TR Pk Grad: 29.00 RA Press: 3.00 RVSP: 32.00 Great Vessels Aorta Sinus of Valsalva: 2.70 2.0-3.5 cm Ao Asc: 2.90 2.1-3.4 cm Pulmonary Veins Pulm Vein S/D 2.20 Pulmonary Valve PV Pk Louie: 1.32 Peak PV Grad: 7.00 Updated in Other Vendor System with Status of Final Ramiro Higgins MD electronically signed on 09/03/2022 5:19:18 PM with status of Final
[2022-09-03 07:46] LABS: Hematocrit 31.4 % (37.0-47.0); Hemoglobin 10.4 g/dl (12.0-16.0); Mean Corpuscular HGB Conc 33.1 g/dl (31.0-35.0); Mean Corpuscular Hemoglobin 29.1 pg (27.0-33.0); Mean Corpuscular Volume 87.7 fL (80.0-98.0); Mean Platelet Volume 11.1 fL (9.4-12.3); Platelet Count 115 X10*3/uL (160-400); Red Blood Count 3.58 X10*6/uL (4.20-5.50); Red Cell Distribution Width 12.8 % (11.0-16.0); White Blood Count 8.7 X10*3/uL (4.8-10.8)
[2022-09-03 08:06] LABS: Anion Gap 18 (12-20); Blood Urea Nitrogen 24 mg/dL (9-16); C Reactive Protein 6.49 mg/dL (< or = 0.50); Calcium 8.2 mg/dL (8.4-10.2); Carbon Dioxide 19 mmol/L (22-29); Chloride 107 mmol/L (96-108); Creatinine Clr Calc Pharmacy 55.4; Estimated Glomerular Filt Rate > 60; Glucose Random 119 mg/dL (60-115); Potassium 3.3 mmol/L (3.3-5.1); Sodium 141 mmol/L (135-145)
[2022-09-03] MEDS: Fluticasone/Vilanterol 100/25 BLST.W.DEV 1 PUFF INHALE (08:13)
[2022-09-03 08:15] LABS: Procalcitonin 0.05 ng/mL
[2022-09-03] MEDS: Apixaban 5 MG TABLET 10 MG PO (09:52)
[2022-09-03] MEDS: dexAMETHasone sod phosphate 10 MG/ML VIAL 6 MG IVPUSH (09:52)
[2022-09-03] MEDS: Loratadine 10 MG TABLET PO (09:52)
[2022-09-03] MEDS: guaiFENesin LA 600 MG TAB.ER.12H PO (09:52)
[2022-09-03] MEDS: amLODIPine Besylate 10 MG TABLET PO (09:52)
--- NOTE | 2022-09-03 10:33 | MHC.CM.PN ---
EMR REVIEWED, PER HOSPITALIST PT MAY BE MEDICALLY CLEARED FOR D/C TODAY, PSYCH TO BE CONSULTED TO CLEAR PT AND PT TO BE CONSULTED, CM TECHNICAL SERVICES ANALYST TO MAKE A NEW PCP APPT FOR PT AT [facility] PT RESIDES IN [place]. REFERRAL TO BE PLACED TO [facility] FOR HOME EVAL FOR HH SERVICES.
[2022-09-03] MEDS: cefTRIAXone sodium 1 GM in 0.9 % Sodium Chloride 50 ML IV (11:25)
--- NOTE | 2022-09-03 12:09 | P.PNIM_ITS ---
Subjective Subjective Date of Service: 09/03/22 Interval History: cough improved no dyspnea weaned off O2, SaO2 94 currently Review of Systems Review of Systems: Yes all other systems are reviewed and are negative Physical Exam Vital Signs: Vital Signs: Last Vital Signs Temp 98.1 F 09/03/22 11:26 Pulse 99 09/03/22 11:26 Resp 18 09/03/22 11:26 BP 144/63 H 09/03/22 11:26 Pulse Ox 94 09/03/22 11:26 O2 Del Method 09/03/22 11:26 O2 Flow Rate 2 09/03/22 04:00 BMI result Body Mass Index 28.6 Gen: in no acute distress HEENT: sclera anicteric, moist mucus membranes Neck: supple Lungs: coarse crackles bilateral bases on inspiration Heart: regular, no murmurs Abd: soft, non-tender, non-distended Ext: no edema Skin: warm/well-perfused Neuro: alert, no focal findings Psych: appropriate affect Objective Data Active Medications Acetaminophen (Acetaminophen 325 Mg Tablet) 650 mg PO Q6H PRN PRN Reason: Pain, Mild (Pain Scale 1-3) Albuterol Sulfate (Albuterol Sulfate (0.083%) 2.5 Mg/3 Ml Vial.Neb) 2.5 mg INHALE Q2H PRN PRN Reason: Shortness of Breath/Wheezing Amlodipine Besylate (Amlodipine Besylate 10 Mg Tablet) 10 mg PO DAILY [facility]; Protocol Last Admin: 09/03/22 09:52 Dose: 10 mg Documented By: JANAE Apixaban (Apixaban 5 Mg Tablet) 10 mg PO BID [facility] Stop: 09/07/22 21:01 Last Admin: 09/03/22 09:52 Dose: 10 mg Documented By: JANAE Apixaban (Apixaban 5 Mg Tablet) 5 mg PO BID [facility] Dexamethasone Sodium Phosphate (Dexamethasone Sod Phosphate 10 Mg/Ml Vial) 6 mg IVPUSH DAILY [facility] Stop: 09/10/22 09:01 Last Admin: 09/03/22 09:52 Dose: 6 mg Documented By: JANAE Donepezil HCl (Donepezil Hcl 10 Mg Tablet) 10 mg PO BEDTIME [facility] Last Admin: 09/02/22 20:23 Dose: 10 mg Documented By: LU Doxycycline Monohydrate (Doxycycline Monohydrate 100 Mg Capsule) 100 mg PO Q12H [facility] Stop: 09/06/22 00:01 Last Admin: 09/03/22 11:25 Dose: 100 mg Documented By: JANAE Fluticasone/Vilanterol (Fluticasone/Vilanterol 100/25 Blst.W.Dev) 1 puff INHALE RDAILY [facility] Last Admin: 09/03/22 08:13 Dose: 1 puff Documented By: SOCORRO Ceftriaxone Sodium 1 gm/ (Sodium Chloride) 50 mls @ 100 mls/hr IV Q24H [facility] Stop: 09/05/22 12:29 Last Infusion: 09/03/22 12:01 Dose: 0 mls/hr Documented By: JANAE Loratadine (Loratadine 10 Mg Tablet) 10 mg PO DAILY [facility] Last Admin: 09/03/22 09:52 Dose: 10 mg Documented By: JANAE Olanzapine (Olanzapine 5 Mg Tablet) 5 mg PO BEDTIME [facility] Last Admin: 09/02/22 20:22 Dose: 5 mg Documented By: LU Ondansetron HCl (Ondansetron Hcl 4 Mg/2 Ml Vial) 4 mg IVPUSH Q8H PRN PRN Reason: Nausea and Vomiting Sodium Chloride (0.9 % Sodium Chloride Flush 3 Ml Syringe) 3 ml IVFLUSH QSHIFT [facility] Last Admin: 09/03/22 12:01 Dose: Not Given Documented By: JANAE Non-Admin Reason: See Note Trazodone HCl (Trazodone Hcl 50 Mg Tablet) 50 mg PO BEDTIME PRN PRN Reason: insomnia Last Admin: 09/03/22 02:42 Dose: 50 mg Documented By: LU Labs 09/03/22 07:06 09/03/22 07:06 Labs: Laboratory Results - last 24 hr 09/02/22 09/03/22 09/03/22 06:27 07:06 07:06 MCV 87.7 MCH 29.1 MCHC 33.1 RDW 12.8 Plt Count 115 L MPV 11.1 Absolute Nucleated RBC 0.000 Nucleated RBC % (auto) 0.0 Anion Gap 15 18 Estim Creat Clear Calc 53.3 55.4 Estimated GFR > 60 > 60 Random Glucose 144 H 119 H Calcium 8.2 L 8.2 L C-Reactive Protein 6.49 H Procalcitonin 0.05 Microbiology Microbiology Results: Microbiology 09/01/22 10:42 Blood Culture - Preliminary Blood - Venous No growth after 24 hours. 09/01/22 10:42 Blood Culture - Preliminary Blood - Venous No growth after 24 hours. Assessment and Plan (1) Pulmonary embolism: Status: Acute Assessment and Plan: d#3 87yo F on geriatric psychiatry unit for hallucinations and paranoia who suffered her 2nd episode of LOC, for which rapid response was called on 09/01/22.? She was recently treated with cefuroxime for UTI, and levofloxacin then doxycycline for post-Covid PNA with the Covid-19 having been diagnosed on 08/18/22. ? She was weaned off O2 08/31/22 but then was found to be hypoxic at the [facility] and then was diagnosed with acute PE # acute bilateral PE - apixaban 10 mg bid x7d then 5 mg bid, started 09/01 # [id number] PNA - d/c'ed isolation precautions.?on d#3/ of ceftriaxone [can switch to cefuroxime]+ doxycycline, d#3/ of dexamethasone - prn nebs # acute hypoxic resp failure - due to above; weaned O2 - also workup for HF- TTE read pending # HTN - continue amlodipine, lisinopril # asymmetric L breast noted on CT chest - outpt mammography # dementia with mood disturbance - donepezil, olanzapine, trazodone # VTE ppx: apixaban as above # dispo: medically cleared for return to psych In my clinical judgment, the patient requires continued inpatient hospitalization for the following reasons: from [facility] Time Spent With Patient Time: Total time managing care of this patient today _42__ minutes. Quality Stroke Does the patient have a stroke diagnosis?: No VTE Prior VTE?: No VTE Risk Level:: Medical - moderate - high VTE Device Contraindication: N/A - Device Ordered VTE Drug Contraindication: N/A - Med Ordered
--- NOTE | 2022-09-03 19:09 | PM.DS ---
DS: Providers Provider Date of Service: 09/03/22 Date of admission: 09/01/22 09:36 Date of discharge: 09/03/22 Primary care physician: Unknown Physician Consults: 09/03/22 12:04 Consult to Care Team Routine Comment: Reason for consultation: Medically cleared to return to [facility] Consult to Psychiatry Routine Consulting Provider: Psych Covering Reason for consultation: Medically cleared to return to [facility] DS: Diagnosis Discharge Diagnosis (1) Pulmonary embolism: Status: Acute (2) Pneumonia: Status: Acute (3) Acute respiratory failure with hypoxia: Status: Acute (4) COVID-19: Status: Acute (5) Dementia with mood disturbance: Status: Acute (6) Syncope: Status: Acute DS: Summary Hospital Course Hospital Course: from my admission H+P, 09/01/22: 87yo F sent in from outside hospital for visual hallucinations and disorganized thought process with paranoia.? Admitted to [facility] on 08/07.? Minimal medical history except for GERD, former tobacco abuse, and prior surgeries [appendectomy, cholecystectomy, oopherectomy].? Seen by hospitalist 08/07/22 and started on anithypertensive therapies.? Found unresponsive on 08/15/22 and admitted to the hospitalist service.? Treated empirically with ceftriaxone/cefuroxime for possible UTI.? No seizure activity demonstrated.? Transferred back to [facility] on 08/16/22.? Tested positive for Covid-19 on 08/18/22 and hospitalist consulted 08/22/22 for concern of fever to 104 and confussion.? History of confusion + hallucinations with UTI.? Not hypoxic.? CXR then showed bronchial wall thickening.? Hospitalist on 08/24/22 noted she had desaturation to high 80s and was treated with 5 days of prednisone and 5 days of levofloxacin.? Afterwards, still remained on O2 2L so Pulmonary was consulted on 08/30 [Dr Woods].? CXR showed multifocal infiltrates.? She was started on doxycycline and Breo inhaler.? She was weaned off O2 yesterday. Today, she was on the toilet when she lost consiousness and slumped to the ground.? No head trauma.? She was out for approximately 1.5 minutes and slowly came to.? [facility] was called.No facial droop or focal weakness noted.? ? She was found to be hypoxic to the low 80s and placed on NRB.? She was sent to the ED for IV acess and a CT of the head, which showed no acute disease.? However, CT angio of the chest showed multiple pulmonary emboli in a background of multifocal infiltrates.? She currently denies any lightheadedness, dizziness, dyspnea, cough, or chest pain.? She is maintaining SaO2 of 96% on 2L O2 via NC. 87yo F on geriatric psychiatry unit for hallucinations and paranoia who suffered her 2nd episode of LOC, for which rapid response?was called on 09/01/22.? She was recently treated with cefuroxime for UTI, and levofloxacin then doxycycline for post-Covid PNA with the Covid-19 having been diagnosed on 08/18/22. She was weaned off O2 08/31/22 but then was found to be hypoxic at the [facility] and then was diagnosed with acute PE. Hospital course by problem: # acute bilateral PE - apixaban 10 mg bid started 09/01. On 09/08, switch to 5 mg bid. # [id number] PNA - d/c'ed isolation precautions as she is past 10 days of illness. On d#3/5 of ceftriaxone, will switch to cefuroxime upon discharge. Also d#3/5 of doxycycline. Also d#3/10 of dexamethasone # acute hypoxic resp failure - due to above; weaned of oxygen and did not qualify for home O2. - also workup for HF- TTE read pending. Please follow up reading and may require cardiology consultation. # asymmetric L breast noted on CT chest - outpt mammography recommended. Time Spent with Patient Time attestation: Total time managing care of this patient today ____ minutes. Discharge coordination time: Greater than 30 minutes Quality: Safe Use of Opioids Does Pt have an Active Cancer Diagnosis on the Problem List?: No Quality: Stroke Does the patient have a stroke diagnosis?: No Physical Exam Vital Signs: Vital Signs: Last Vital Signs Temp 97.8 F 09/03/22 16:00 Pulse 102 H 09/03/22 16:00 Resp 18 09/03/22 16:00 BP 138/59 L 09/03/22 16:00 Pulse Ox 94 09/03/22 16:00 O2 Del Method 09/03/22 16:00 O2 Flow Rate 2 09/03/22 04:00 BMI result Body Mass Index 28.6 Gen: in no acute distress HEENT: sclera anicteric, moist mucus membranes Neck: supple Lungs: clear to auscultation bilaterally Heart: regular rate and rhythm, no murmurs Abd: soft, non-tender, non-distended Ext: no edema Skin: warm/well-perfused Neuro: alert and oriented x3, no focal findings Psych: appropriate affect DS: Data Data Completed and Pending Completed studies during hospitalization [Text1]: Laboratory Results WBC 8.7 X10*3/uL (4.8-10.8) 09/03/22 07:06 RBC 3.58 X10*6/uL (4.20-5.50) L 09/03/22 07:06 Hgb 10.4 g/dl (12.0-16.0) L 09/03/22 07:06 Hct 31.4 % (37.0-47.0) L 09/03/22 07:06 MCV 87.7 fL (80.0-98.0) 09/03/22 07:06 MCH 29.1 pg (27.0-33.0) 09/03/22 07:06 MCHC 33.1 g/dl (31.0-35.0) 09/03/22 07:06 RDW 12.8 % (11.0-16.0) 09/03/22 07:06 Plt Count 115 X10*3/uL (160-400) L 09/03/22 07:06 MPV 11.1 fL (9.4-12.3) 09/03/22 07:06 Immature Gran % (Auto) 1.2 % (0.0-0.4) H 09/02/22 06:27 Neut % (Auto) 83.9 % (45-73) H 09/02/22 06:27 Lymph % (Auto) 9.6 % (20-40) L 09/02/22 06:27 [place] % (Auto) 5.3 % (2-11) 09/02/22 06:27 Eos % (Auto) 0.0 % (0-4) 09/02/22 06:27 Baso % (Auto) 0.0 % (0-2) 09/02/22 06:27 Lymph # (Auto) 0.7 X10*3/uL (1.2-4.9) L 09/02/22 06:27 [place] # (Auto) 0.4 X10*3/uL (0.1-1.2) 09/02/22 06:27 Eos # (Auto) 0.0 X10*3/uL (0.0-0.4) 09/02/22 06:27 Baso # (Auto) 0.0 X10*3/uL (0.0-0.2) 09/02/22 06:27 Abs Immat Gran (auto) 0.08 X10*3/uL (0.00-0.03) H 09/02/22 06:27 Absolute Neuts (auto) 5.7 x10*3/uL (2.0-8.3) 09/02/22 06:27 Absolute Nucleated RBC 0.000 X10*3/uL (0.0-0.012) 09/03/22 07:06 Nucleated RBC % (auto) 0.0 /100WBC (0.0-0.2) 09/03/22 07:06 Sodium 141 mmol/L (135-145) 09/03/22 07:06 Potassium 3.3 mmol/L (3.3-5.1) 09/03/22 07:06 Chloride 107 mmol/L (96-108) 09/03/22 07:06 Carbon Dioxide 19 mmol/L (22-29) L 09/03/22 07:06 Anion Gap 18 (12-20) 09/03/22 07:06 BUN 24 mg/dL (9-16) H 09/03/22 07:06 Creatinine 0.78 mg/dL (0.5-1.4) 09/03/22 07:06 Estim Creat Clear Calc 55.4 09/03/22 07:06 Estimated GFR > 60 09/03/22 07:06 Random Glucose 119 mg/dL (60-115) H 09/03/22 07:06 Calcium 8.2 mg/dL (8.4-10.2) L 09/03/22 07:06 Total Bilirubin 1.4 mg/dL (0.0-1.0) H 09/01/22 10:42 AST 24 U/L (5-31) 09/01/22 10:42 ALT 15 U/L (0-31) 09/01/22 10:42 Alkaline Phosphatase 47 U/L (39-117) 09/01/22 10:42 C-Reactive Protein 6.49 mg/dL (< or = 0.50) H 09/03/22 07:06 B-Natriuretic Peptide 214 pg/mL (<100) H 09/02/22 06:27 Total Protein 5.8 g/dL (6.5-8.0) L 09/01/22 10:42 Albumin 3.2 g/dL (3.5-5.0) L 09/01/22 10:42 Procalcitonin 0.05 ng/mL 09/03/22 07:06 Labs on day of discharge: Laboratory Results - last 24 hr 09/03/22 09/03/22 07:06 07:06 WBC 8.7 RBC 3.58 L Hgb 10.4 L Hct 31.4 L MCV 87.7 MCH 29.1 MCHC 33.1 RDW 12.8 Plt Count 115 L MPV 11.1 Absolute Nucleated RBC 0.000 Nucleated RBC % (auto) 0.0 Sodium 141 Potassium 3.3 Chloride 107 Carbon Dioxide 19 L Anion Gap 18 BUN 24 H Creatinine 0.78 Estim Creat Clear Calc 55.4 Estimated GFR > 60 Random Glucose 119 H Calcium 8.2 L C-Reactive Protein 6.49 H Procalcitonin 0.05 Preliminary micro results at discharge 09/01/22 10:42 Blood Culture - Preliminary Blood - Venous No growth after 48 hours. 09/01/22 10:42 Blood Culture - Preliminary Blood - Venous No growth after 48 hours. Discharge Plan Discharge Anticipated Discharge Date/Time: 09/03/22 18:56 Disposition: Xfer Psychiatric Hosp Referrals: [facility] [Other] - 1 Week (HOME EVAL FOR HOME HEALTH SERVICES, SOMEONE WILL BE IN CONTACT WITH YOU TO SET UP AN APPOINTMENT. ) Physician,Unknown J [Primary Care Provider] - 1 Week Discharge Medications: New Eliquis 5 mg Tablet 5 mg PO BID Qty: 60 0RF Eliquis 5 mg Tablet 10 mg PO BID Qty: 20 0RF cefuroxime axetil 500 mg tablet 500 mg PO BID Qty: 5 0RF dexamethasone 6 mg tablet 6 mg PO DAILY Qty: 7 0RF Continued fluticasone furoate-vilanterol [Breo Ellipta] 200-25 mcg/dose Blister With Device 1 ea inhalation RDAILY Qty: 0 0RF trazodone 50 mg Tablet 50 mg PO BEDTIME MRX1 PRN (Reason: Insomnia) Qty: 7 0RF donepezil 10 mg Tablet 10 mg PO BEDTIME Qty: 7 0RF Rx Instructions: next dose 08/18/22 HS olanzapine 5 mg Tablet 5 mg PO BEDTIME Qty: 7 0RF amlodipine 10 mg Tablet 10 mg PO DAILY Qty: 7 0RF Protocol: Hold for SBP< HOLD for SBP < : 90 loratadine 10 mg Tablet 10 mg PO DAILY omeprazole 20 mg Tablet,Delayed Release (Dr/Ec) 20 mg PO DAILY@0630 doxycycline monohydrate 100 mg Capsule 100 mg PO Q12H Qty: 5 0RF Discontinued guaifenesin [Mucinex] 600 mg Tablet Extended Release 12hr 600 mg PO BID Qty: 0 0RF lisinopril 10 mg Tablet 10 mg PO BEDTIME Qty: 7 0RF Protocol: Hold for SBP< HOLD for SBP < : 90 Mag&Al/Sim/Diphenhyd/Lidocaine [Magic Mouthwash] 10 ml PO Q4H PRN (Reason: Indigestion) Discharge Orders: Discharge Order (Routine); Ordered 09/03/22 Ordered By: Dragan Jackson Forms: Patient Portal Discharge page Care Plan Goals: recovery from post-Covid pneumonia treatment of pulmonary embolism Health Concerns: syncope due to hypoxia due to acute PE and [id number] pneumonia left breast asymmetry noted on CT of chest: will need outpatient mammography Plan of Treatment: take apixaban 10 mg twice daily for 5 days, then switch to 5 mg twice daily take doxycycline 100 mg twice daily PLUS cefuroxime 500 mg twice daily for 5 more doses take dexamethasone 6 mg daily for 7 more days left breast asymmetry noted on CT of chest: will need outpatient mammography Assessment: See Discharge Summary.
== END 2022-09-03 22:04 | DRG 175 ==
PROVIDERS: Admitting Provider Family Medicine; Visit Provider Family Medicine
DX: I26.99 Other pulmonary embolism without acute cor pulmonale (principal); J18.9 Pneumonia, unspecified organism; J96.01 Acute respiratory failure with hypoxia; F03.93 Unspecified dementia, unspecified severity, with mood disturbance; I10 Essential (primary) hypertension; N64.89 Other specified disorders of breast; K21.9 Gastro-esophageal reflux disease without esophagitis; Z87.891 Personal history of nicotine dependence; Z88.0 Allergy status to penicillin; Z88.1 Allergy status to other antibiotic agents; Z79.01 Long term (current) use of anticoagulants; Z79.899 Other long term (current) drug therapy
CPT/HCPCS: 36415; 80048; 80053; 83880; 84145; 85025; 85027; 86140; 87040; 93306; 93356; 97162; J0696; J1100

== ENCOUNTER 2022-09-03 19:49 | Inpatient (IN) | payer MEDICARE, BC, SELFPAY ==
--- NOTE | ~2022-09-03 | CT_ITS ---
EXAMINATION: CT head/brain wo IV con CLINICAL INFORMATION: Reason for Exam Increase visual hallucinations, recent PE COMPARISON: CT head without contrast 09/01/2022 TECHNIQUE: Contiguous axial imaging was performed from the skull base to vertex without intravenous contrast. Sagittal and coronal reformatted images were obtained. This CT examination was performed using dose optimization techniques as appropriate, variously including the following: * Automated exposure control * Adjustment of mA and/or kV according to patient size (this includes techniques or standardized protocols for targeted exams where dose is matched to indication/reason for exam; i.e. extremities or head) Use of iterative reconstruction technique DLP: 853.73 mGy-cm FINDINGS: No acute osseous or soft tissue abnormality. The mastoid air cells and visualized portions of the paranasal sinuses are well aerated. There is no evidence of acute intracranial hemorrhage or territorial infarction. No abnormal mass effect or midline shift is seen. [place]ruett to white matter differentiation is well preserved. No extra-axial fluid collections are identified. No hydrocephalus. No significant volume loss. Patchy periventricular and deep white matter hypoattenuation is consistent with moderate small vessel ischemic changes. Left basal ganglia chronic lacunar infarct. CT/CT head/brain wo IV con IMPRESSION: No acute intracranial abnormality including hemorrhage, mass effect, hydrocephalus, or acute territorial edematous infarction.
[2022-09-03] MEDS: Donepezil HCl 10 MG TABLET PO (22:41)
[2022-09-03] MEDS: Apixaban 5 MG TABLET 10 MG PO (22:41)
[2022-09-03] MEDS: OLANZapine 5 MG TABLET PO (22:42)
[2022-09-03] MEDS: Doxycycline Monohydrate 100 MG CAPSULE PO (22:42)
[2022-09-03 22:54] VITALS: BP 133/60; PULSE 80; RESP 16; TEMP 36.5; O2SAT 93
--- NOTE | 2022-09-04 00:10 | PC.NURSE ---
Patient is an 87 year old woman admitted from [facility] to [facility] on 09/04/2022 at 2215. Pt was admitted on a conditionally voluntary. Patient returned from [facility] after being treated for bilateral pulmonary embolism. Pt having active visual hallucinations. when patient came down she did not want to get out of the bed stating i don't want to do anything. I've had funerals . Patient having hallucinations unrelated to chronic UTI's. Patient presents as confused and disoriented. patient has a hx of covid 19, HTN, dementia, pulmonary emboli. Patient re-admitted to geriatric psych for treatment of hallucinations. Pt is currently on a 1:1. vital signs stable.
[2022-09-04 06:00] VITALS: BP 147/76; PULSE 106; RESP 18; TEMP 36.4; O2SAT 94
[2022-09-04 08:36] LABS: Alanine Aminotransferase 11 U/L (0-31); Albumin Level 2.9 g/dL (3.5-5.0); Alkaline Phosphatase 42 U/L (39-117); Anion Gap 11 (12-20); Aspartate Amino Transferase 14 U/L (5-31); Bilirubin Total 0.5 mg/dL (0.0-1.0); Blood Urea Nitrogen 25 mg/dL (9-16); Calcium 8.3 mg/dL (8.4-10.2); Carbon Dioxide 29 mmol/L (22-29); Chloride 106 mmol/L (96-108); Cholesterol 184 mg/dL; Estimated Glomerular Filt Rate > 60; Glucose Fasting 86 mg/dL (60-99); HDL Cholesterol 33 mg/dL; LDL Cholesterol Calculated 134 mg/dl; Potassium 3.8 mmol/L (3.3-5.1); Sodium 142 mmol/L (135-145); Total Protein 5.4 g/dL (6.5-8.0); Triglycerides 86 mg/dL
[2022-09-04 08:56] VITALS: BMI 28.6
[2022-09-04 09:00] VITALS: BP 147/76; PULSE 108; RESP 18; TEMP 36.4; O2SAT 94
[2022-09-04] MEDS: dexAMETHasone 6 MG TABLET PO (10:32)
[2022-09-04] MEDS: Apixaban 5 MG TABLET 10 MG PO ×2 (10:32→20:08)
[2022-09-04] MEDS: Doxycycline Monohydrate 100 MG CAPSULE PO ×2 (10:32→20:08)
--- NOTE | 2022-09-04 11:07 | P.CONCA_ITS ---
History of Present Illness History of Present Illness Date of Service: 09/04/22 Chief complaint: Confusion paranoia pulm embolism PMFSH Past Medical History Medical History (Updated 09/03/22 @ 19:10 by Dragan Jackson MD) Acid reflux HTN (hypertension) Surgical History Surgical History History of appendectomy History of bilateral oophorectomy History of cholecystectomy Social History Social History Household Members: None Housing: Other Housing Other:: patient lives independently in [facility] Do you presently have visiting nurse or other home services: No Unable to assess alcohol history related to: Unknown Patient Tobacco Use Status: Tobacco use Unknown Tobacco use type: Cigarette e-Cigarette/Vaping Use: Never Used Second Hand Smoke Exposure: No Use of substances other than those prescribed or required for medical reasons: Unknown Currently Displaying Signs/Symptoms of Drug Intoxication Withdrawal: No Advance Directives: No Advance Directives Information Provided: No Do you have thoughts of harming others: None Do you have a plan to hurt others: No Plan Recently lost weight without trying: Unsure Patient : No service: No Current occupational status: retired Sexual orientation: Straight/Heterosexual Meds Allergies Allergy/AdvReac Type Severity Reaction Status Date / Time amoxicillin AdvReac Hives Verified 08/18/22 15:48 cefpodoxime [From Vantin] AdvReac Hives Verified 08/18/22 15:48 erythromycin base AdvReac Unknown Verified 08/18/22 15:48 Active Medications: Current Medications Acetaminophen (Acetaminophen 325 Mg Tablet) 650 mg PO Q6H PRN PRN Reason: Headache/Pain Mild Scale (1-3) Al Hydroxide/Mg Hydroxide (Magnesium Hydrox/Alum Hydrox 30 Ml Oral.Susp) 30 ml PO Q6H PRN PRN Reason: Heartburn/Nausea Apixaban (Apixaban 5 Mg Tablet) 10 mg PO BID [facility] Stop: 09/07/22 21:01 Last Admin: 09/04/22 10:32 Dose: 10 mg Apixaban (Apixaban 5 Mg Tablet) 5 mg PO BID [facility] Cefuroxime Axetil (Cefuroxime Axetil 500 Mg Tablet) 500 mg PO Q12H [facility] Stop: 09/05/22 19:31 Last Admin: 09/04/22 10:32 Dose: 500 mg Dexamethasone (Dexamethasone 6 Mg Tablet) 6 mg PO DAILY [facility] Stop: 09/10/22 09:01 Last Admin: 09/04/22 10:32 Dose: 6 mg Donepezil HCl (Donepezil Hcl 10 Mg Tablet) 10 mg PO BEDTIME [facility] Last Admin: 09/03/22 22:41 Dose: 10 mg Doxycycline Monohydrate (Doxycycline Monohydrate 100 Mg Capsule) 100 mg PO Q12H [facility] Stop: 09/05/22 20:01 Last Admin: 09/04/22 10:32 Dose: 100 mg Hydroxyzine HCl (Hydroxyzine Hcl 25 Mg Tablet) 25 mg PO Q6H PRN PRN Reason: Anxiety Magnesium Hydroxide (Milk Of Magnesia 30 Ml Oral.Susp) 30 ml PO DAILY PRN PRN Reason: Constipation Olanzapine (Olanzapine 5 Mg Tablet) 5 mg PO BEDTIME [facility] Last Admin: 09/03/22 22:42 Dose: 5 mg Home Medications Medication Instructions Recorded Confirmed Last Taken Type loratadine 10 mg tablet 10 mg PO DAILY 09/01/22 09/01/22 Unknown History omeprazole 20 mg tablet,delayed 20 mg PO DAILY@0630 09/01/22 09/01/22 Unknown History release Physical Exam Vital Signs: Vital Signs: Last Vital Signs Temp 97.6 F 09/04/22 06:00 Pulse 106 H 09/04/22 06:00 Resp 18 09/04/22 06:00 BP 147/76 H 09/04/22 06:00 Pulse Ox 94 09/04/22 06:00 O2 Del Method 09/04/22 06:00 BMI result Body Mass Index 28.6 Objective Labs and Meds 09/04/22 07:56 Lab results: Laboratory Results - last 24 hr 09/04/22 07:56 Sodium 142 Potassium 3.8 Chloride 106 Carbon Dioxide 29 Anion Gap 11 L BUN 25 H Creatinine 0.75 Estim Creat Clear Calc TNP Estimated GFR > 60 Fasting Glucose 86 Calcium 8.3 L Total Bilirubin 0.5 AST 14 ALT 11 Alkaline Phosphatase 42 Total Protein 5.4 L Albumin 2.9 L Triglycerides 86 Cholesterol 184 LDL Cholesterol, Calc 134 HDL Cholesterol 33 Assessment and Plan Time Spent With Patient Time: Total time managing care of this patient today ____ minutes.
--- NOTE | 2022-09-04 11:50 | P.HPPS_ITS ---
HPI Date of Service: 09/04/22 Chief Complaint: Confusion paranoia pulm embolism Sources of Information: patient interviewed, chart reviewed and crisis/core team assessment reviewed HPI Subjective Notes: [place] Warning and Conditional Voluntary Narrative: The patient is an 87-year-old female, with a recent diagnosis of dementia admitted for psychotic symptoms in the context of UTI. Please see the HPI of the prior admission note for further details. The patient was transferred from this unit to [facility] after she lost consciousness for the 2nd time. While she was in the unit a few days ago she contacted COVID-19 and also she had a previous episode of loss of consciousness that could be UTI. She was brought to the [facility] unit and she was diagnosed with pulmonary embolism untreated. On the moment of the interview, the patient denies new symptoms she looks tired and confused, the staff has noticed that she has visual hallucinations at times but easily redirectable. Past Psychiatric History: She had several visits to the emergency room for visual hallucinations in the context of UTI, 2 years ago she was nearly admitted at psychiatric geriatric unit. Medical Evaluation Reviewed: Yes [facility] Medical History (Updated 09/03/22 @ 19:10 by Dragan Jackson MD) Acid reflux HTN (hypertension) Surgical History History of appendectomy History of bilateral oophorectomy History of cholecystectomy Family History: Denies Social History: The patient is the 4th of 6 children, her milestones were achieved at expected age she was raised with her purse and she had a very good childhood. She attended school until 11th grade, she had at the age of 30 and she has 2 children who were close to her. At this moment, she lives in a mobile home by herself with some supports that is very limited. Adult protective services is involved in her care Trauma History: Denies Diagnostics Vital Signs (24Hr): Vital Signs - 24 hr 09/03/22 22:54 09/04/22 06:00 Temperature 97.7 F 97.6 F Pulse Rate 80 106 H Respiratory Rate 16 18 Blood Pressure 133/60 147/76 H Pulse Oximetry 93 94 Oxygen Delivery Method Room Air Room Air BMI result Body Mass Index 28.6 Labs 09/04/22 07:56 Labs: Laboratory Results - last 48 hr 09/04/22 07:56 Sodium 142 Potassium 3.8 Chloride 106 Carbon Dioxide 29 Anion Gap 11 L BUN 25 H Creatinine 0.75 Estim Creat Clear Calc TNP Estimated GFR > 60 Fasting Glucose 86 Calcium 8.3 L Total Bilirubin 0.5 AST 14 ALT 11 Alkaline Phosphatase 42 Total Protein 5.4 L Albumin 2.9 L Triglycerides 86 Cholesterol 184 LDL Cholesterol, Calc 134 HDL Cholesterol 33 Meds/Allergies Meds Home Medications Medication Instructions Recorded Confirmed Type loratadine 10 mg tablet 10 mg PO DAILY 09/01/22 09/01/22 History omeprazole 20 mg tablet,delayed 20 mg PO DAILY@0630 09/01/22 09/01/22 History release Allergies Allergies Allergy/AdvReac Type Severity Reaction Status Date / Time amoxicillin AdvReac Hives Verified 08/18/22 15:48 cefpodoxime [From Vantin] AdvReac Hives Verified 08/18/22 15:48 erythromycin base AdvReac Unknown Verified 08/18/22 15:48 Mental Status Exam Mental Status Exam Patient Appearance: Appropriate Patient Orientation: Person and Situation Level of Consciousness: Awake and Appropriate Patient Behavior: Guarded and Passive Mood Description: Withdrawn Affect Description: Constricted Patient Cognition Impaired: Yes Ability to Follow Directions: Fair Speech Pattern: Impoverished Hallucinations: Visual Delusions: Paranoid Ideation Thought Process: Distracted and Evasive Thought Content: positive for [place], positive for [place] and positive for Poverty of Content Judgement: Poor Assessment & Plan Assessment & Plan (1) Syncope: Status: Acute Code(s): R55 - Syncope and collapse (2) COVID-19: Status: Acute Code(s): U07.1 - COVID-19 (3) Pulmonary embolism: Status: Acute Code(s): I26.99 - Other pulmonary embolism without acute cor pulmonale (4) Dementia: Status: Acute Code(s): F03.90 - Unspecified dementia, unspecified severity, without behavioral disturbance, psychotic disturbance, mood disturbance, and anxiety (5) Delirium: Status: Acute Code(s): R41.0 - Disorientation, unspecified (6) HTN (hypertension): Status: Acute Code(s): I10 - Essential (primary) hypertension Plan The patient is an elderly female who was brought from the med surge unit after she was been medically cleared, she was brought to the emergency room initially for visual hallucinations and paranoia in the context of UTI admitted here but later on she was on the medical unit twice, once for a loss of con sciousness in the context of UTI in the 2nd for pulmonary embolism. At this moment she is medically cleared and transferred here for continuation of treatment. Plan 1. Continue with antipsychotics. 2. Continue with medical treatment as per recommendations of the hospitalist team. 3. Reassessment results. 4. CT scan head. 5. Currently she is having more visual hallucinations so we will assessed and titrate antipsychotics accordingly. Patient educated on: diagnosis Informed Consent: further education needed Reason for continued inpatient stay Substantial Risk for: inability to function, rapid decompensation and med/psych decompensation Statement Statement: I have reviewed the history and physical and performed a pertinent examination on my patient. No changes have occurred unless specified. If the History and Physical was not performed prior to admission, the Hospitalist's service will be consulted for completing the admission physical. Time Spent With Patient Time: Total time managing care of this patient today __30__ minutes.
[2022-09-04] MEDS: Acetaminophen 325 MG TABLET 650 MG PO (12:08)
[2022-09-04 13:00] VITALS: BP 135/72; PULSE 102; RESP 16; TEMP 36.2; O2SAT 94
[2022-09-04 18:00] VITALS: BP 118/65; PULSE 100; RESP 18; TEMP 36.1; O2SAT 93
[2022-09-04] MEDS: Donepezil HCl 10 MG TABLET PO (20:08)
[2022-09-04] MEDS: OLANZapine 5 MG TABLET PO (20:08)
[2022-09-05 07:00] VITALS: BMI 29.8
[2022-09-05 09:00] VITALS: BP 132/59; PULSE 106; RESP 20; TEMP 36.6; O2SAT 94
[2022-09-05] MEDS: Apixaban 5 MG TABLET 10 MG PO ×2 (09:11→20:14)
[2022-09-05] MEDS: Doxycycline Monohydrate 100 MG CAPSULE PO ×2 (09:12→20:13)
[2022-09-05] MEDS: dexAMETHasone 6 MG TABLET PO (09:12)
--- NOTE | 2022-09-05 12:33 | HO.PSYCHPN ---
Subjective Subjective Date of Service: 09/05/22 Reason For Visit: Cardiomyopathy Subjective Notes: Conditional Voluntary Interim History: The nursing staff reported the patient slept 6 hours and she looks and feels much better. She denies auditory hallucinations or depression. The child protective services social worker reported that she spoke with her son and apparently the trailer home is already fixed over this weekend. The occupational therapy reported that she has the condition it but stable. On interview the patient denies new symptoms and I explained her that we will discharge her most likely next Friday after a family meeting and Adult protective Services will be involved. Mental Status Exam Mental Status Exam Patient Appearance: Well Grooomed and Appropriate Patient Orientation: Person and Situation Level of Consciousness: Awake and Appropriate Patient Behavior: Guarded and Passive Mood Description: Withdrawn Affect Description: Constricted Patient Cognition Impaired: Yes Ability to Follow Directions: Good Speech Pattern: Clear Hallucinations: None Delusions: Not Present Thought Process: Distracted Thought Content: positive for [place] and positive for Poverty of Content Judgement: Fair Diagnostics Vital Signs (24Hr): Vital Signs - 24 hr 09/04/22 13:00 09/04/22 18:00 09/05/22 09:00 Temperature 97.2 F 96.9 F 97.9 F Pulse Rate 102 H 100 106 H Respiratory Rate 16 18 20 Blood Pressure 135/72 118/65 132/59 L Pulse Oximetry 94 93 94 Oxygen Delivery Method Room Air Room Air Room Air BMI result Body Mass Index 28.6 Labs 09/04/22 07:56 Labs: Laboratory Results - last 48 hr 09/04/22 07:56 Sodium 142 Potassium 3.8 Chloride 106 Carbon Dioxide 29 Anion Gap 11 L BUN 25 H Creatinine 0.75 Estim Creat Clear Calc TNP Estimated GFR > 60 Fasting Glucose 86 Calcium 8.3 L Total Bilirubin 0.5 AST 14 ALT 11 Alkaline Phosphatase 42 Total Protein 5.4 L Albumin 2.9 L Triglycerides 86 Cholesterol 184 LDL Cholesterol, Calc 134 HDL Cholesterol 33 Imaging Radiology Impressions: ITS Impressions Head CT 09/04/22 17:41 IMPRESSION: No acute intracranial abnormality including hemorrhage, mass effect, hydrocephalus, or acute territorial edematous infarction. Medications Medications Current Medications Acetaminophen (Acetaminophen 325 Mg Tablet) 650 mg PO Q6H PRN PRN Reason: Headache/Pain Mild Scale (1-3) Last Admin: 09/04/22 12:08 Dose: 650 mg Al Hydroxide/Mg Hydroxide (Magnesium Hydrox/Alum Hydrox 30 Ml Oral.Susp) 30 ml PO Q6H PRN PRN Reason: Heartburn/Nausea Apixaban (Apixaban 5 Mg Tablet) 10 mg PO BID [facility] Stop: 09/07/22 21:01 Last Admin: 09/05/22 09:11 Dose: 10 mg Apixaban (Apixaban 5 Mg Tablet) 5 mg PO BID [facility] Cefuroxime Axetil (Cefuroxime Axetil 500 Mg Tablet) 500 mg PO Q12H [facility] Stop: 09/05/22 19:31 Last Admin: 09/05/22 07:26 Dose: 500 mg Dexamethasone (Dexamethasone 6 Mg Tablet) 6 mg PO DAILY [facility] Stop: 09/10/22 09:01 Last Admin: 09/05/22 09:12 Dose: 6 mg Donepezil HCl (Donepezil Hcl 10 Mg Tablet) 10 mg PO BEDTIME [facility] Last Admin: 09/04/22 20:08 Dose: 10 mg Doxycycline Monohydrate (Doxycycline Monohydrate 100 Mg Capsule) 100 mg PO Q12H [facility] Stop: 09/05/22 20:01 Last Admin: 09/05/22 09:12 Dose: 100 mg Hydroxyzine HCl (Hydroxyzine Hcl 25 Mg Tablet) 25 mg PO Q6H PRN PRN Reason: Anxiety Magnesium Hydroxide (Milk Of Magnesia 30 Ml Oral.Susp) 30 ml PO DAILY PRN PRN Reason: Constipation Olanzapine (Olanzapine 5 Mg Tablet) 5 mg PO BEDTIME [facility] Last Admin: 09/04/22 20:08 Dose: 5 mg Allergies Allergies Allergy/AdvReac Type Severity Reaction Status Date / Time amoxicillin AdvReac Hives Verified 08/18/22 15:48 cefpodoxime [From Vantin] AdvReac Hives Verified 08/18/22 15:48 erythromycin base AdvReac Unknown Verified 08/18/22 15:48 Assessment & Plan Assessment & Plan (1) Syncope: Status: Acute Code(s): R55 - Syncope and collapse (2) COVID-19: Status: Acute Code(s): U07.1 - COVID-19 (3) Pulmonary embolism: Status: Acute Code(s): I26.99 - Other pulmonary embolism without acute cor pulmonale (4) Dementia: Status: Acute Code(s): F03.90 - Unspecified dementia, unspecified severity, without behavioral disturbance, psychotic disturbance, mood disturbance, and anxiety (5) Delirium: Status: Acute Code(s): R41.0 - Disorientation, unspecified (6) HTN (hypertension): Status: Acute Code(s): I10 - Essential (primary) hypertension Plan The patient is an elderly female with a long history of dementia who had been admitted for auditory hallucinations in the context of UTI. She had been on medicine twice for altered mental status the 1st time due to UTI in the 2nd time due to pulmonary embolism it. At this moment medically more stable. Plan 1. Continue with same treatment. Discharged after family meeting next week. Reason for contiued inpatient stay Substantial Risk for: inability to function, rapid decompensation and med/psych decompensation Time Spent With Patient Time: Total time managing care of this patient today _20___ minutes.
--- NOTE | 2022-09-05 12:59 | PC.NURSE ---
Pt. A & O X 4 with good balance and steady gait. Using walker appropriately. No bed alarm needed.
[2022-09-05 13:00] VITALS: BP 131/71; PULSE 98; RESP 18; TEMP 36.6; O2SAT 96
--- NOTE | 2022-09-05 15:50 | PM.CNCAR ---
History of Present Illness History of Present Illness Date of Service: 09/05/22 Chief complaint: Cardiomyopathy Narrative: 87-year-old female who recently was admitted to [facility] for syncope and acute pulmonary embolism and is currently on Eliquis. She was transferred to inpatient psych facility because of paranoia. She has been started on medications and feels better. During admission she had echocardiography which showed EF of 40 45% with inferior wall motion abnormality. She is denying any symptoms currently. She is saying no chest discomfort or shortness of breath. Also denies any old history of cardiovascular issues. She is currently walking using a walker and is denying any significant symptom with ambulation. [facility] Past Medical History Medical History (Updated 09/05/22 @ 15:52 by Ramiro Higgins MD) Acid reflux HTN (hypertension) Surgical History Surgical History History of appendectomy History of bilateral oophorectomy History of cholecystectomy Social History Social History Household Members: None Housing: Other Housing Other:: patient lives independently in [facility] Do you presently have visiting nurse or other home services: No Unable to assess alcohol history related to: Unknown Patient Tobacco Use Status: Former Tobacco user Quit Date: 55 years ago Tobacco use type: Cigarette Smoked in Last 30 Days: No e-Cigarette/Vaping Use: Never Used Patient Interested in Nicotine Replacement: No Patient Given Instructions on How to Stop Smoking: No Second Hand Smoke Exposure: No Use of substances other than those prescribed or required for medical reasons: Unknown Currently Displaying Signs/Symptoms of Drug Intoxication Withdrawal: No Advance Directives: No Advance Directives Information Provided: No Do you have thoughts of harming others: None Do you have a plan to hurt others: No Plan Recently lost weight without trying: Unsure Patient : No service: No Current occupational status: retired Sexual orientation: Straight/Heterosexual Meds Allergies Allergy/AdvReac Type Severity Reaction Status Date / Time amoxicillin AdvReac Hives Verified 08/18/22 15:48 cefpodoxime [From Vantin] AdvReac Hives Verified 08/18/22 15:48 erythromycin base AdvReac Unknown Verified 08/18/22 15:48 Active Medications: Current Medications Acetaminophen (Acetaminophen 325 Mg Tablet) 650 mg PO Q6H PRN PRN Reason: Headache/Pain Mild Scale (1-3) Last Admin: 09/04/22 12:08 Dose: 650 mg Al Hydroxide/Mg Hydroxide (Magnesium Hydrox/Alum Hydrox 30 Ml Oral.Susp) 30 ml PO Q6H PRN PRN Reason: Heartburn/Nausea Apixaban (Apixaban 5 Mg Tablet) 10 mg PO BID [facility] Stop: 09/07/22 21:01 Last Admin: 09/05/22 09:11 Dose: 10 mg Apixaban (Apixaban 5 Mg Tablet) 5 mg PO BID [facility] Cefuroxime Axetil (Cefuroxime Axetil 500 Mg Tablet) 500 mg PO Q12H [facility] Stop: 09/05/22 19:31 Last Admin: 09/05/22 07:26 Dose: 500 mg Dexamethasone (Dexamethasone 6 Mg Tablet) 6 mg PO DAILY [facility] Stop: 09/10/22 09:01 Last Admin: 09/05/22 09:12 Dose: 6 mg Donepezil HCl (Donepezil Hcl 10 Mg Tablet) 10 mg PO BEDTIME [facility] Last Admin: 09/04/22 20:08 Dose: 10 mg Doxycycline Monohydrate (Doxycycline Monohydrate 100 Mg Capsule) 100 mg PO Q12H [facility] Stop: 09/05/22 20:01 Last Admin: 09/05/22 09:12 Dose: 100 mg Hydroxyzine HCl (Hydroxyzine Hcl 25 Mg Tablet) 25 mg PO Q6H PRN PRN Reason: Anxiety Magnesium Hydroxide (Milk Of Magnesia 30 Ml Oral.Susp) 30 ml PO DAILY PRN PRN Reason: Constipation Olanzapine (Olanzapine 5 Mg Tablet) 5 mg PO BEDTIME [facility] Last Admin: 09/04/22 20:08 Dose: 5 mg Home Medications Medication Instructions Recorded Confirmed Last Taken Type loratadine 10 mg tablet 10 mg PO DAILY 09/01/22 09/01/22 Unknown History omeprazole 20 mg tablet,delayed 20 mg PO DAILY@0630 09/01/22 09/01/22 Unknown History release Physical Exam Vital Signs: Vital Signs: Last Vital Signs Temp 97.9 F 09/05/22 13:00 Pulse 98 09/05/22 13:00 Resp 18 09/05/22 13:00 BP 131/71 09/05/22 13:00 Pulse Ox 96 09/05/22 13:00 O2 Del Method 09/05/22 13:00 BMI result Body Mass Index 29.8 GENERAL APPEARANCE: in no acute distress, pleasant. NECK: no carotid bruit, no jugular venous distention. SKIN: no suspicious lesions, warm and dry. HEART: no murmurs, regular rate and rhythm. LUNGS: clear to auscultation bilaterally. ABDOMEN: soft, nontender. EXTREMITIES: no edema. PERIPHERAL PULSES: equal. NEUROLOGIC: No gross deficits, AAO X 3 Objective Labs and Meds 09/04/22 07:56 Imaging Radiologist's impression: Impressions Head CT 09/04/22 17:41 IMPRESSION: No acute intracranial abnormality including hemorrhage, mass effect, hydrocephalus, or acute territorial edematous infarction. Assessment and Plan (1) Cardiomyopathy: Status: Acute Plan 87-year-old female who underwent echocardiography during inpatient admission recently for syncope and pulmonary embolism. She had ECHO performed on 09/03/2022 showing ejection fraction 40 45% with basal inferior wall motion abnormality. We have been asked to assess her further cardiomyopathy. She is denying any symptoms currently. No chest pain or shortness of breath. Clinically not in heart failure. Etiology of cardiomyopathy is unclear but underlying ischemic disease is possible. In any case she is currently asymptomatic and does not require any testing. Once she is discharged from the inpatient psych facility then she can follow up with us and we can 9 further workup if required. Would consider low-dose beta-marin with metoprolol succinate 25 mg once a day. Signing off for now. Can see us as outpatient if required. Thank you for allowing me to participate in the care of your patient. Please feel free to contact me if you have any questions. Time Spent With Patient Time: Total time managing care of this patient today ____ minutes. Procedures Date of Service Date of Service: 09/05/22
[2022-09-05 18:00] VITALS: BP 132/62; PULSE 86; RESP 16; TEMP 36.3; O2SAT 95
[2022-09-05] MEDS: Donepezil HCl 10 MG TABLET PO (20:14)
[2022-09-05] MEDS: OLANZapine 5 MG TABLET PO (20:14)
[2022-09-06] MEDS: dexAMETHasone 6 MG TABLET PO (08:43)
[2022-09-06] MEDS: Apixaban 5 MG TABLET 10 MG PO ×2 (08:43→20:24)
[2022-09-06 09:00] VITALS: BP 128/68; PULSE 111; RESP 18; TEMP 36.2; O2SAT 93
[2022-09-06 13:00] VITALS: BP 114/54; PULSE 87; RESP 18; TEMP 37.2; O2SAT 94
--- NOTE | 2022-09-06 15:11 | P.PNPSI_ITS ---
Subjective Subjective Date of Service: 09/06/22 Reason For Visit: Cardiomyopathy Subjective Notes: Conditional Voluntary Interim History: The nursing staff reported the patient slept well, she was seen yesterday playing cards and she looks much better oriented. The drug abuse social worker reported that they contact that he but it takes services and they came yesterday and will follow up as an outpatient. The occupational therapist reported that she is participating well in groups. On interview the patient denies new symptoms, waiting for placement next Friday Mental Status Exam Mental Status Exam Patient Appearance: Well Grooomed and Appropriate Patient Orientation: Person and Situation Level of Consciousness: Awake and Appropriate Patient Behavior: Cooperative Mood Description: Withdrawn Affect Description: Constricted Patient Cognition Impaired: Yes Ability to Follow Directions: Good Speech Pattern: Clear Hallucinations: None Delusions: Not Present Thought Process: Distracted and Linear Thought Content: positive for [place] and positive for Circumstantial Judgement: Fair Diagnostics Vital Signs (24Hr): Vital Signs - 24 hr 09/05/22 18:00 09/06/22 09:00 09/06/22 13:00 Temperature 97.3 F 97.2 F 99.0 F Pulse Rate 86 111 H 87 Respiratory Rate 16 18 18 Blood Pressure 132/62 128/68 114/54 L Pulse Oximetry 95 93 94 Oxygen Delivery Method Room Air Room Air Room Air BMI result Body Mass Index 29.8 Labs 09/04/22 07:56 Imaging Radiology Impressions: ITS Impressions Head CT 09/04/22 17:41 IMPRESSION: No acute intracranial abnormality including hemorrhage, mass effect, hydrocephalus, or acute territorial edematous infarction. Medications Medications Current Medications Acetaminophen (Acetaminophen 325 Mg Tablet) 650 mg PO Q6H PRN PRN Reason: Headache/Pain Mild Scale (1-3) Last Admin: 09/04/22 12:08 Dose: 650 mg Al Hydroxide/Mg Hydroxide (Magnesium Hydrox/Alum Hydrox 30 Ml Oral.Susp) 30 ml PO Q6H PRN PRN Reason: Heartburn/Nausea Apixaban (Apixaban 5 Mg Tablet) 10 mg PO BID [facility] Stop: 09/07/22 21:01 Last Admin: 09/06/22 08:43 Dose: 10 mg Apixaban (Apixaban 5 Mg Tablet) 5 mg PO BID [facility] Dexamethasone (Dexamethasone 6 Mg Tablet) 6 mg PO DAILY [facility] Stop: 09/10/22 09:01 Last Admin: 09/06/22 08:43 Dose: 6 mg Donepezil HCl (Donepezil Hcl 10 Mg Tablet) 10 mg PO BEDTIME [facility] Last Admin: 09/05/22 20:14 Dose: 10 mg Hydroxyzine HCl (Hydroxyzine Hcl 25 Mg Tablet) 25 mg PO Q6H PRN PRN Reason: Anxiety Magnesium Hydroxide (Milk Of Magnesia 30 Ml Oral.Susp) 30 ml PO DAILY PRN PRN Reason: Constipation Olanzapine (Olanzapine 5 Mg Tablet) 5 mg PO BEDTIME [facility] Last Admin: 09/05/22 20:14 Dose: 5 mg Allergies Allergies Allergy/AdvReac Type Severity Reaction Status Date / Time amoxicillin AdvReac Hives Verified 08/18/22 15:48 cefpodoxime [From Vantin] AdvReac Hives Verified 08/18/22 15:48 erythromycin base AdvReac Unknown Verified 08/18/22 15:48 Assessment & Plan Assessment & Plan (1) Syncope: Status: Acute Code(s): R55 - Syncope and collapse (2) COVID-19: Status: Acute Code(s): U07.1 - COVID-19 (3) Pulmonary embolism: Status: Acute Code(s): I26.99 - Other pulmonary embolism without acute cor pulmonale (4) Dementia: Status: Acute Code(s): F03.90 - Unspecified dementia, unspecified severity, without behavioral disturbance, psychotic disturbance, mood disturbance, and anxiety (5) Delirium: Status: Acute Code(s): R41.0 - Disorientation, unspecified (6) HTN (hypertension): Status: Acute Code(s): I10 - Essential (primary) hypertension Plan The patient is an elderly female with a long history of dementia who had been admitted for auditory hallucinations in the context of UTI. She had been on medicine twice for altered mental status the 1st time due to UTI in the 2nd time due to pulmonary embolism it. At this moment medically more stable. Plan 1. Continue with same treatment. Discharged after family meeting next week. Reason for contiued inpatient stay Substantial Risk for: inability to function, rapid decompensation and med/psych decompensation Time Spent With Patient Time: Total time managing care of this patient today __20__ minutes.
[2022-09-06 18:00] VITALS: BP 99/57; PULSE 90; RESP 17; TEMP 36.1; O2SAT 94
[2022-09-06] MEDS: OLANZapine 5 MG TABLET PO (20:24)
[2022-09-06] MEDS: Donepezil HCl 10 MG TABLET PO (20:24)
[2022-09-07 09:05] VITALS: BP 133/66; PULSE 98; RESP 16; TEMP 35.9; O2SAT 94
[2022-09-07] MEDS: Apixaban 5 MG TABLET 10 MG PO ×2 (09:06→20:07)
[2022-09-07] MEDS: dexAMETHasone 6 MG TABLET PO (09:06)
--- NOTE | 2022-09-07 09:34 | P.PNPSI_ITS ---
Subjective Subjective Date of Service: 09/07/22 Reason For Visit: Cardiomyopathy Subjective Notes: Conditional Voluntary Interim History: The nursing staff reported the patient has been isolative, she ate 80% of her meals and slept 7 hours. On interview the patient denies new symptoms waiting for discharge on Friday Mental Status Exam Mental Status Exam Patient Appearance: Well Grooomed and Appropriate Patient Orientation: Person and Situation Level of Consciousness: Awake and Appropriate Patient Behavior: Appropriate and Cooperative Mood Description: Calm Affect Description: Constricted Patient Cognition Impaired: Yes Ability to Follow Directions: Good Speech Pattern: Clear Hallucinations: None Delusions: Not Present Thought Process: Linear Thought Content: positive for Intact Judgement: Good Diagnostics Vital Signs (24Hr): Vital Signs - 24 hr 09/06/22 13:00 09/06/22 18:00 09/07/22 09:05 Temperature 99.0 F 97 F 96.6 F L Pulse Rate 87 90 98 Respiratory Rate 18 17 16 Blood Pressure 114/54 L 99/57 L 133/66 Pulse Oximetry 94 94 94 Oxygen Delivery Method Room Air Room Air Room Air BMI result Body Mass Index 29.8 Labs 09/04/22 07:56 Imaging Radiology Impressions: ITS Impressions Head CT 09/04/22 17:41 IMPRESSION: No acute intracranial abnormality including hemorrhage, mass effect, hydrocephalus, or acute territorial edematous infarction. Medications Medications Current Medications Acetaminophen (Acetaminophen 325 Mg Tablet) 650 mg PO Q6H PRN PRN Reason: Headache/Pain Mild Scale (1-3) Last Admin: 09/04/22 12:08 Dose: 650 mg Al Hydroxide/Mg Hydroxide (Magnesium Hydrox/Alum Hydrox 30 Ml Oral.Susp) 30 ml PO Q6H PRN PRN Reason: Heartburn/Nausea Apixaban (Apixaban 5 Mg Tablet) 10 mg PO BID [facility] Stop: 09/07/22 21:01 Last Admin: 09/07/22 09:06 Dose: 10 mg Apixaban (Apixaban 5 Mg Tablet) 5 mg PO BID [facility] Dexamethasone (Dexamethasone 6 Mg Tablet) 6 mg PO DAILY [facility] Stop: 09/10/22 09:01 Last Admin: 09/07/22 09:06 Dose: 6 mg Donepezil HCl (Donepezil Hcl 10 Mg Tablet) 10 mg PO BEDTIME [facility] Last Admin: 09/06/22 20:24 Dose: 10 mg Hydroxyzine HCl (Hydroxyzine Hcl 25 Mg Tablet) 25 mg PO Q6H PRN PRN Reason: Anxiety Magnesium Hydroxide (Milk Of Magnesia 30 Ml Oral.Susp) 30 ml PO DAILY PRN PRN Reason: Constipation Olanzapine (Olanzapine 5 Mg Tablet) 5 mg PO BEDTIME [facility] Last Admin: 09/06/22 20:24 Dose: 5 mg Allergies Allergies Allergy/AdvReac Type Severity Reaction Status Date / Time amoxicillin AdvReac Hives Verified 08/18/22 15:48 cefpodoxime [From Vantin] AdvReac Hives Verified 08/18/22 15:48 erythromycin base AdvReac Unknown Verified 08/18/22 15:48 Assessment & Plan Assessment & Plan (1) Syncope: Status: Acute Code(s): R55 - Syncope and collapse (2) COVID-19: Status: Acute Code(s): U07.1 - COVID-19 (3) Pulmonary embolism: Status: Acute Code(s): I26.99 - Other pulmonary embolism without acute cor pulmonale (4) Dementia: Status: Acute Code(s): F03.90 - Unspecified dementia, unspecified severity, without behavioral disturbance, psychotic disturbance, mood disturbance, and anxiety (5) Delirium: Status: Acute Code(s): R41.0 - Disorientation, unspecified (6) HTN (hypertension): Status: Acute Code(s): I10 - Essential (primary) hypertension Plan The patient is an elderly female with a long history of dementia who had been admitted for auditory hallucinations in the context of UTI. She had been on medicine twice for altered mental status the 1st time due to UTI in the 2nd time due to pulmonary embolism it. At this moment medically more stable. Plan 1. Continue with same treatment. Discharged after family meeting next week. Reason for contiued inpatient stay Substantial Risk for: inability to function, rapid decompensation and med/psych decompensation Time Spent With Patient Time: Total time managing care of this patient today __20__ minutes.
[2022-09-07 13:00] VITALS: BP 141/70; PULSE 61; RESP 16; O2SAT 93
[2022-09-07 18:00] VITALS: BP 127/75; PULSE 105; RESP 18; TEMP 36.6; O2SAT 94
[2022-09-07] MEDS: Donepezil HCl 10 MG TABLET PO (20:08)
[2022-09-07] MEDS: OLANZapine 5 MG TABLET PO (20:08)
[2022-09-08 07:30] VITALS: BP 119/59; PULSE 93; RESP 18; TEMP 36.9; O2SAT 95
[2022-09-08] MEDS: Apixaban 5 MG TABLET PO ×2 (08:54→19:45)
[2022-09-08] MEDS: dexAMETHasone 6 MG TABLET PO (08:54)
--- NOTE | 2022-09-08 11:42 | P.PNPSI_ITS ---
Subjective Subjective Date of Service: 09/08/22 Reason For Visit: Cardiomyopathy Subjective Notes: Conditional Voluntary Interim History: The nursing staff reported the patient had been fully compliant with treatment, denies new symptoms pleasant and cooperative. On interview the patient denies new symptoms ready for discharge tomorrow. Mental Status Exam Mental Status Exam Patient Appearance: Well Grooomed and Appropriate Patient Orientation: Person and Situation Level of Consciousness: Awake and Appropriate Patient Behavior: Appropriate Mood Description: Calm Affect Description: Constricted Patient Cognition Impaired: Yes Ability to Follow Directions: Good Speech Pattern: Clear Hallucinations: None Delusions: Not Present Thought Process: Linear Thought Content: positive for [place] and positive for Circumstantial Judgement: Fair Diagnostics Vital Signs (24Hr): Vital Signs - 24 hr 09/07/22 13:00 09/07/22 18:00 09/08/22 07:30 Temperature 97.8 F 98.5 F Pulse Rate 61 105 H 93 Respiratory Rate 16 18 18 Blood Pressure 141/70 H 127/75 119/59 L Pulse Oximetry 93 94 95 Oxygen Delivery Method Room Air Room Air Room Air BMI result Body Mass Index 29.8 Labs 09/04/22 07:56 Imaging Radiology Impressions: ITS Impressions Head CT 09/04/22 17:41 IMPRESSION: No acute intracranial abnormality including hemorrhage, mass effect, hydrocephalus, or acute territorial edematous infarction. Medications Medications Current Medications Acetaminophen (Acetaminophen 325 Mg Tablet) 650 mg PO Q6H PRN PRN Reason: Headache/Pain Mild Scale (1-3) Last Admin: 09/04/22 12:08 Dose: 650 mg Al Hydroxide/Mg Hydroxide (Magnesium Hydrox/Alum Hydrox 30 Ml Oral.Susp) 30 ml PO Q6H PRN PRN Reason: Heartburn/Nausea Apixaban (Apixaban 5 Mg Tablet) 5 mg PO BID [facility] Last Admin: 09/08/22 08:54 Dose: 5 mg Dexamethasone (Dexamethasone 6 Mg Tablet) 6 mg PO DAILY [facility] Stop: 09/10/22 09:01 Last Admin: 09/08/22 08:54 Dose: 6 mg Donepezil HCl (Donepezil Hcl 10 Mg Tablet) 10 mg PO BEDTIME [facility] Last Admin: 09/07/22 20:08 Dose: 10 mg Hydroxyzine HCl (Hydroxyzine Hcl 25 Mg Tablet) 25 mg PO Q6H PRN PRN Reason: Anxiety Magnesium Hydroxide (Milk Of Magnesia 30 Ml Oral.Susp) 30 ml PO DAILY PRN PRN Reason: Constipation Olanzapine (Olanzapine 5 Mg Tablet) 5 mg PO BEDTIME [facility] Last Admin: 09/07/22 20:08 Dose: 5 mg Allergies Allergies Allergy/AdvReac Type Severity Reaction Status Date / Time amoxicillin AdvReac Hives Verified 08/18/22 15:48 cefpodoxime [From Vantin] AdvReac Hives Verified 08/18/22 15:48 erythromycin base AdvReac Unknown Verified 08/18/22 15:48 Assessment & Plan Assessment & Plan (1) Syncope: Status: Acute Code(s): R55 - Syncope and collapse (2) COVID-19: Status: Acute Code(s): U07.1 - COVID-19 (3) Pulmonary embolism: Status: Acute Code(s): I26.99 - Other pulmonary embolism without acute cor pulmonale (4) Dementia: Status: Acute Code(s): F03.90 - Unspecified dementia, unspecified severity, without behavioral dis turbance, psychotic disturbance, mood disturbance, and anxiety (5) Delirium: Status: Acute Code(s): R41.0 - Disorientation, unspecified (6) HTN (hypertension): Status: Acute Code(s): I10 - Essential (primary) hypertension Plan The patient is an elderly female with a long history of dementia who had been admitted for auditory hallucinations in the context of UTI. She had been on medicine twice for altered mental status the 1st time due to UTI in the 2nd time due to pulmonary embolism it. At this moment medically more stable. Plan 1. Continue with same treatment. Discharged after family meeting next week. Reason for contiued inpatient stay Substantial Risk for: inability to function, rapid decompensation and med/psych decompensation Time Spent With Patient Time: Total time managing care of this patient today __20__ minutes.
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
[2022-09-08 13:00] VITALS: BP 184/73; PULSE 95; RESP 18; TEMP 36.2; O2SAT 95
[2022-09-08 18:49] VITALS: BP 124/60; PULSE 108; RESP 18; TEMP 36.1; O2SAT 96
[2022-09-08] MEDS: Donepezil HCl 10 MG TABLET PO (19:43)
[2022-09-08] MEDS: OLANZapine 5 MG TABLET PO (19:44)
[2022-09-09] MEDS: dexAMETHasone 6 MG TABLET PO (08:33)
[2022-09-09] MEDS: Apixaban 5 MG TABLET PO (08:33)
[2022-09-09 08:34] VITALS: BP 132/70; PULSE 103; RESP 18; TEMP 36; O2SAT 97
[2022-09-09] MEDS: Acetaminophen 325 MG TABLET 650 MG PO (10:18)
== END 2022-09-09 11:59 | disposition home or self-care (01) | DRG 880 ==
PROVIDERS: Admitting Provider Psychiatry & Neurology Psychiatry; Visit Provider Psychiatry & Neurology Psychiatry
DX: F05 Delirium due to known physiological condition (principal); U07.1 COVID-19; I42.9 Cardiomyopathy, unspecified; I10 Essential (primary) hypertension; F03.90 Unspecified dementia, unspecified severity, without behavioral disturbance, psychotic disturbance, mood disturbance, and anxiety; R55 Syncope and collapse; Z86.711 Personal history of pulmonary embolism; Z87.891 Personal history of nicotine dependence; Z88.0 Allergy status to penicillin; Z88.8 Allergy status to other drugs, medicaments and biological substances; Z79.01 Long term (current) use of anticoagulants; Z79.51 Long term (current) use of inhaled steroids; Z79.899 Other long term (current) drug therapy
CPT/HCPCS: 36415; 70450; 80053; 80061; J8540